=== PATIENT | male | born 1995 | race Caucasian/White ===

== ENCOUNTER 2016-06-22 17:11 | Emergency (ER) | payer OTHER ==
[~2016-06-22] VITALS: Ht 147.3 cm; Wt 33.6 kg
[~2016-06-22 17:11] MED LIST: ACTIGALL300 MG PO; ASACOL400 MG PO; AUGMENTIN 875 M1 TAB PO; CAPOTEN; CAPOTEN PO; CAPOTEN25 MG PO; CAPTOPRIL PO; FLAGYL250 MG PO; LEVAQUIN500 MG PO; MOTRIN; VASOTEC20 MG PO; VASOTEC5 MG PO; bactrim; mineral oil
[2016-06-22 17:36] VITALS: BP 113/70
--- NOTE | 2016-06-22 19:40 | NUR ---
BIB WHEELCHAIR TO ER BED 2
--- NOTE | 2016-06-22 19:45 | NUR ---
Note undone in EDM - 06/23/16 at 0457 by MINDY 21 Y/O MENTALLY CHALLENGE BIB FATHER W/C/O RLW ABD PAIN, N/V X 3 DAYS. FATHER DENIES ANY FEVER. PER FATHER PT HAS BEING CONSTIPATED SINCE GALLBLADDER REMOVED X 1 YEAR, AND HE IS CONSTANTLY IN PAIN. NO S/S OF DISTRESS NOTED AT THE MOMENT. ER AWARE.
--- NOTE | 2016-06-22 19:45 | NUR ---
21 Y/O M WHEEL CHAIR BOUND, WITH COMPLETE APHASIA, SPASTIC,EXTREMITIES X 4 CONTRACTED BIB FATHER W/C/O RLW ABD PAIN, N/V X 3 DAYS. FATHER DENIES ANY FEVER. PER FATHER PT HAS BEING CONSTIPATED SINCE GALLBLADDER REMOVED X 1 YEAR, AND HE IS CONSTANTLY IN PAIN. NO S/S OF DISTRESS NOTED AT THE MOMENT. ER MD AWARE.
[2016-06-22 19:56] VITALS: BP 113/70
--- NOTE | 2016-06-22 19:56 | NUR ---
Patient discharged BY DR HAINES with v/s stable. Written and verbal after care instructions given and explained BY ER MD TO FATHER. FATHER ABLE TO VERBALIZED UNDERSTANDING OF INSTRUCTIONS. Wheel Chair Assisted with by parent. All questions addressed prior to discharge. ID band removed. Patient advised to follow up with PMD OR RETURN TO ER IF CONDITION WORSENS. Rx of TYLENOL WITH CODEINE, MILK OF MAGNESIA, AUGMENTIN AND MOTRIN CHILDREN given. Patient educated on indication of medication including possible reaction and side effects. Opportunity to ask questions provided and answered.
[2016-09-22] MEDS ORDERED: ALDACTONE25 M1 PO (12:09)
[2016-09-22] MEDS ORDERED: MYCOSTATIN100000 U/2 TP (12:09)
[2016-09-22] MEDS ORDERED: FUROSEMIDE40 M1 PO (12:09)
[2016-09-22] MEDS ORDERED: TYLENOL650 MG RC (12:09)
== END 2016-06-22 19:56 | disposition home or self-care (01) ==
LOC: MED 17:15
DX: J06.9 Acute upper respiratory infection, unspecified (principal); K59.00 Constipation, unspecified

== ENCOUNTER 2016-09-16 18:44 | Inpatient (IN) | payer OTHER ==
[~2016-09-16] VITALS: Ht 152.4 cm; Wt 30.4 kg
[~2016-09-16 18:44] MED LIST changes: -ACTIGALL300 MG PO; -ASACOL400 MG PO; -AUGMENTIN 875 M1 TAB PO; -CAPOTEN; -CAPOTEN PO; -CAPOTEN25 MG PO; -CAPTOPRIL PO; +ENAL20TA46 PO; -FLAGYL250 MG PO; -LEVAQUIN500 MG PO; -MOTRIN; -VASOTEC20 MG PO; -VASOTEC5 MG PO; -bactrim; -mineral oil
[2016-09-16 18:51] VITALS: BP 108/58
--- NOTE | 2016-09-16 19:47 | NUR ---
PT TAKEN TO BED 8
--- NOTE | 2016-09-16 19:50 | NUR ---
21 Y/O M BIB PARENTS W/C/O ABD PAIN, BLOATING, AND DIARRHEA WITH BLOODY SPOTS X 3 DAYS. PAREENTS DENIED ANY FEVER, CHILLS OR VOMITING. ABD APPEARS DISTENDED. ER MD MADE AWARE.
--- NOTE | 2016-09-16 19:52 | NUR ---
Dr. Navarrete evaluating patient at bedside.
[2016-09-16 20:28] LABS: HEMATOCRIT 31.3 % (36-52); HEMOGLOBIN 10.1 g/dL (12.0-18.0); MEAN CORPUSCULAR HEMOGLOBIN 31 pg (27-31); MEAN CORPUSCULAR HGB CONC 32 g/dL (33-37); MEAN CORPUSCULAR VOLUME 96 fL (80-94); PLATELET COUNT (AUTO) 275 K/uL (140-450); RED BLOOD CELL COUNT(AUTO) 3.27 MIL/uL (4.20-6.10); RED CELL DISTRIBUTION WIDTH 19.2 % (11.6-13.7); WHITE BLOOD COUNT (AUTO) 18.3 K/uL (4.8-10.8)
[2016-09-16 20:47] LABS: ALBUMIN 1.7 g/dL (3.4-5.0); ANION GAP 12.4 (8-16); CALCIUM 7.6 mg/dL (8.5-10.1); CARBON DIOXIDE 25.9 mmol/L (21-32); CREATININE 0.7 mg/dL (0.6-1.3); POTASSIUM 4.3 mmol/L (3.5-5.1); TOTAL BILIRUBIN 0.2 mg/dL (0.0-1.0); TOTAL PROTEIN, SERUM 5.1 g/dL (6.4-8.2)
--- NOTE | 2016-09-16 20:56 | NUR ---
PT TAKEN TO CT
[2016-09-16 20:57] LABS: BAND % (MANUAL) 8 % (0-8); LYMPHOCYTES % (MANUAL) 6 % (20-46); NEUTROPHILS % (MANUAL) 86 (43-65)
[2016-09-16 20:58] LABS: PLATELET ESTIMATE ADEQUATE
--- NOTE | 2016-09-16 21:10 | NUR ---
PT RETURN FROM CT
[2016-09-16] MEDS ORDERED: KETOROLAC 15 MG/ML VIAL IVP ONE (22:15)
[2016-09-16] MEDS ORDERED: metroNIDAZOLE 250 MG/NS PREMIX 50 ML IV ONE (22:20)
[2016-09-16] MEDS ORDERED: ACETAMINOPHEN 325 MG TAB PO PRN (22:30)
[2016-09-16] MEDS ORDERED: HYDROcodone/APAP 5/325 MG 1 TAB TAB PO PRN (22:30)
[2016-09-16] MEDS ORDERED: LORazepam 2 MG/ML VIAL IVP PRN (22:30)
[2016-09-16] MEDS ORDERED: ONDANSETRON 4 MG/2 ML VIAL IVP PRN (22:30)
[2016-09-16] MEDS ORDERED: metroNIDAZOLE 500 MG/NS PREMIX 100 ML IV ONE (22:42)
--- NOTE | 2016-09-16 23:05 | NUR ---
Patient will be admitted to care of DR HENDRIX. Admited to TELEMETRY. Will go to [id number] Belongings list completed. Report to ISIAH FAY.
--- NOTE | 2016-09-16 23:16 | NUR ---
PT TRASFERED TO TELEMETRY FLOOR ROOM 114 VIA [employer]. ACCOMPANIED BY PARENTS, JOANN, RN AND EMT. LOG HAUL CHAIN FEEDER IN BED. NO S/S OF DISTRESS NOTED DURING TRASFER.
[2016-09-16 23:30] VITALS: BP 111/56
--- NOTE | 2016-09-16 23:40 | NUR ---
ADMITTED A 21 Y/O MALE FROM ER [facility]IA [facility], ACCOMPANIED BY FAMILY. PT ADMITTED TO MS FOR ABDOMINAL PAIN WITH DISTENTION AND DIARRHEA FOR PAST 3 DAYS PER FATHER. RESPIRATION EVEN AND UNLABORED, NO SOB, NO S/S RESPIRATORY DISTRESS. PT DENIES PAIN AT THIS TIME. PT HAS CEREBRAL PALSY, APHASIC BUT ABLE TO MAKE NEEDS KNOWN THROUGH GESTURES AND CUEING. PT FOLLOWS SIMPLE COMMANDS. IV ACCESS TO RIGHT FOREARM, GAUGE 22, INTACT AND PATENT, INFUSING FLAGYL @ 100ML/HR AT THIS TIME. IV ACCESS WRAPPED WITH KERLIX NOTED. INSTRUCTED PT NOT TO PULL THE IV OUT, PT NODDED HIS HEAD BUT NEED REINFORCEMENT. PATIENT'S PARENTS PRESENTLY IN THE UNIT. OBTAINED PATIENT'S HX. SKIN INTACT, NO PRESSURE ULCER NOTED AT THIS TIME. DISCUSSED PLAN OF CARE TO PATIENT AND FAMILY. PARENTS VERBALIZED UNDERSTANDING. PT AGREED BY NODDING HIS HEAD. ORIENTED TO CALL LIGHT, BED, PHONE, BATHROOM, VISITING HOURS, ID BRACELET. BELONGINGS CHECKED. PT'S WHEELCHAIR IN THE ROOM.FALL PRECAUTION IN PLACE. BED ALARM IN PLACE. ALL NEEDS ANTICIPATED. PT CLEAN AND DRY AT THIS TIME. WILL CONTINUE TO MONITOR.
[2016-09-16] MEDS: NACL 0.9% 1,000 ML IV SCH (23:49)
--- NOTE | 2016-09-16 23:49 | NUR ---
INITIAL DOSE OF IVF NS STARTED, RUNNING AT 100ML/HR. PT TOLERATING WELL. WILL CONTINUE TO MONITOR.
[2016-09-17] MEDS: LEVOFLOXACIN 500 MG/D5W PREMIX 100 ML IV SCH ×2 (00:34→22:34)
--- NOTE | 2016-09-17 00:34 | NUR ---
FIRST DOSE OF ATB LEVAQUIN 500MG IVPB ADMINISTERED AT 100ML/HR. NO ADVERSE REACTION NOTED AT THIS TIME. WILL CONTINUE TO MONITOR.
--- NOTE | 2016-09-17 01:30 | NUR ---
PAGED DR. HIGGINS DUE TO PATIENT'S HR 120-127 BPM. PT RESTING IN BED, AWAKE AND WATCHING TV. NO S/S OF RESPIRATORY DISTRESS AT THIS TIME. MESSAGE LEFT TO SUNNY FROM EXCHANGE. AWAITING FOR CALL BACK.
--- NOTE | 2016-09-17 01:32 | NUR ---
DR. SIMEON TENA CALLED BACK, DISCUSSED PATIENT'S SINUS TACHY WITH ORDER TO GIVE 1L NS BOLUS WIDE OPEN. NOTED AND CARRIED OUT.
[2016-09-17] MEDS ORDERED: NACL 0.9% 1,000 ML IV ONE (01:40)
--- NOTE | 2016-09-17 02:09 | NUR ---
1L NS BOLUS STARTED. PT REMAINS AWAKE, NO ACUTE CHANGES IN CONDITION AT THIS TIME. WILL CONTINUE TO MONITOR.
--- NOTE | 2016-09-17 02:55 | NUR ---
PT AWAKE STILL, WATCHING TV. HR SHOWS 115-117 BPM. NO S/S OF RESPIRATORY DISTRESS. WILL CONTINUE TO MONITOR.
[2016-09-17 04:00] VITALS: BP 95/45
[2016-09-17] MEDS: metroNIDAZOLE 500 MG/NS PREMIX 100 ML IV SCH ×3 (04:57→21:20)
[2016-09-17] MEDS ORDERED: metroNIDAZOLE 250 MG/NS PREMIX 50 ML IV SCH (05:00)
--- NOTE | 2016-09-17 05:30 | NUR ---
PT MOANING LOUDLY AT THIS TIME, HOLDING HIS BILATERAL HINDUISM. ASKED PT IF HE HAS HEADACHE, PT NODDED HIS HEAD. PT FEELS HOT TO TOUCH. TEMP 100. INFORMED DR. HENDRIX(PARTS LISTER) ABOUT PT'S CHANGED IN CONDITION. ORDERED TO GIVE TYLENOL 650MG SUPP AND SAM PO TYLENOL. ORDER NOTED AND CARRIED OUT. INITIATED COOLING MEASURES.
[2016-09-17] MEDS: ACETAMINOPHEN 650 MG SUPP RC PRN (06:00)
--- NOTE | 2016-09-17 06:00 | NUR ---
TYLENOL 650MG SUPP GIVEN PER RECTUM. CONTINUE ON COOLING MEASURES. PT AWAKE, ALERT AND VERBALLY RESPONSIVE. CALLING OUT "MAMA! MOMMY". REASSURANCE PROVIDED. WILL CONTINUE TO MONITOR AND REASSESS FOR EFFECTIVENESS.
--- NOTE | 2016-09-17 06:46 | NUR ---
PATIENT HAS BEEN SCREENED AND CATEGORIZED HIGH NUTRITION RISK. PATIENT WILL BE SEEN WITHIN 1-2 DAYS OF ADMISSION. 09/15/16-09/17/16 LILA GIL MS, RDN
[2016-09-17 07:12] LABS: ALBUMIN 1.4 g/dL (3.4-5.0); ANION GAP 11.5 (8-16); CALCIUM 6.9 mg/dL (8.5-10.1); CARBON DIOXIDE 23.6 mmol/L (21-32); CREATININE 0.6 mg/dL (0.6-1.3); POTASSIUM 4.1 mmol/L (3.5-5.1); TOTAL BILIRUBIN 0.4 mg/dL (0.0-1.0); TOTAL PROTEIN, SERUM 4.3 g/dL (6.4-8.2)
--- NOTE | 2016-09-17 07:22 | NUR ---
PT AWAKE, CALM, TEMP 97.2 AT THIS TIME. NO ACUTE CHANGES OBSERVED. NO S/S OF RESPIRATORY DISTRESS, NO C/O PAIN AT THIS TIME. ENDORSED TO NEXT SHIFT FOR CONTINUITY OF CARE.
--- NOTE | 2016-09-17 07:27 | NUR ---
RECEIVED PT IN BED. ASLEEP. AROUSABLE TO VOICE. ALERT ORIENTED X2. NO SOB NOTED ON ROOM AIR. NO SIGNS AND SYMPTOMS OF ACUTE PAIN OR DISCOMFORT NOTED AT THIS TIME. ABDOMINAL DISTENSION NOTED. POSITIVE BOWEL SOUNDS NOTED ON FOUR QUADRANTS. OR BEDBOUND. SKIN INTACT. SAFETY PRECAUTION IN PLACE. CALL LIGHT WITHIN REACH.
[2016-09-17 08:00] VITALS: BP 92/53
--- NOTE | 2016-09-17 09:00 | NUR ---
PT HAD BM, SOFT,FORMED, BROWN IN COLOR. NON LIQUID BM. NOT A CRITERIA FOR C-DIFF STOOL COLLECTION. WILL CONTINUE TO MONITOR BM OF PT.
[2016-09-17] MEDS: ENOXAPARIN 40 MG/0.4 ML SYR SUBQ SCH (09:04)
--- NOTE | 2016-09-17 09:30 | NUR ---
MORNING CARE GIVEN TO PT PER DIRECTOR COMMERCIAL SALES ASSIST. PT NOT COOPERATIVE. GOOD SKIN CARE RENDERED. REPOSITIONED TO PT COMFORT. NOS SOB NOTED. NO SIGNS AND SYMPTOMS OF ACUTE PAIN OR DISCOMFORT NOTED AT THIS TIME.
--- NOTE | 2016-09-17 09:54 | NUR ---
09/17/16 RD INITIAL ASSESSMENT COMPLETED PLEASE REFER TO NUTRITION ASSESSMENT UNDER CARE ACTIVITY FOR ESTIMATED NUTRITIONAL NEEDS. RD RECOMMENDATIONS: 1. CONTINUE ON NPO MEDICALLY APPROPRIATE. 2. CONSULT RDN FOR NUTRITION RECOMMENDATIONS PRN. 3. RD WILL F/U 2-3 DAYS; HIGH RISK. LILA GIL, , RDN
[2016-09-17] MEDS: NACL 0.9% 1,000 ML IV SCH ×2 (11:41→18:30)
[2016-09-17 12:00] VITALS: BP 90/43
--- NOTE | 2016-09-17 12:54 | NUR ---
PARENTS OF PT CAME TO VISIT PT. FATHER TERESITA ASKED FOR SOME ICED WATER FOR THEM. REMINDED PARENTS THAT PT CAN'T EAT OR DRINK ANYTHING YET PER MD ORDER. PARENTS VERBALIZED UNDERSTANDING. SERVED PARENTS WITH ICE WATER.
[2016-09-17] MEDS ORDERED: ALBUMIN HUMAN 25% 100 ML IV SCH (15:00)
[2016-09-17 16:00] VITALS: BP 95/55
--- NOTE | 2016-09-17 18:26 | NUR ---
CHRISTOPHER FROM ULTRASOUND DEPARTMENT CAME TO SEE PT AND PERFORMED ULTRASOUND OF GALL BLADDER.
--- NOTE | 2016-09-17 19:18 | NUR ---
PT JUST HAD A SOFT, DARK BROWN IN COLOR BM, NON WATERY. CHANGED PT. KEPT CLEAN AND DRY. GOOD SKIN CARE RENDERED. FAMILY AT BEDSIDE.
--- NOTE | 2016-09-17 19:50 | NUR ---
RECEIVED REPORT FROM MORNING SHIFT AT BEDSIDE, PT IS AAOX2, APHASIC, ABLE TO FOLLOW COMMANDS AND MAKE NEEDS KNOWN. VSS, FLACC 0, NO S/S OF SOB/DISTRESS, CLEAR LUNG SOUND, ON RA. DENIES CHEST PAIN, SR ON TELE MONITOR. DISTENDED ABDOMEN WITH ACTIVE BOWEL SOUNDS, CURRENTLY ON NPO, AFEBRILE, SKIN IS INTACT, WARM AND DRY TO TOUCH. IV SITE TO RIGHT FOREARM 22GA RUNNING NS. BLE WEAKNESS NOTED, BEDBOUND, PLACED PT WITH COMFORT POSITION, SAFETY MEASURES IN PLACE, CALL LIGHT WITHIN REACH, WILL CONTINUE TO MONITOR.
--- NOTE | 2016-09-17 19:52 | NUR ---
PT KEPT CLEAN, DRY AND COMFORTABLE, NEEDS ATTENDED. ENDORSED TO DEPUTY DISTRICT CUSTOMS DIRECTOR ON STABLE CONDITION FOR CONTINUITY OF CARE. NO SOB. DENIES ANY PAIN OR DISCOMFORT AT THIS TIME.
[2016-09-17 20:00] VITALS: BP 101/49
--- NOTE | 2016-09-17 21:00 | NUR ---
SCHEDULED MEDICATION GIVEN, PT TOLERATED WELL. FAMILY MEMBERS AT BEDSIDE AT THIS TIME.
[2016-09-18] VITALS: BP 94/33
--- NOTE | 2016-09-18 | NUR ---
PT IS AWAKE, STATED HUNGRY, BUT PT IS ON NPO, EXPLAINED THE CURRENT STATUS TO PT, PT KNOCKED HEAD SHOWING UNDERSTANDING.
[2016-09-18] MEDS: NACL 0.9% 1,000 ML IV SCH (02:41)
--- NOTE | 2016-09-18 03:00 | NUR ---
PT HAD A MUCOUS BLACK COLORED STOOL, COLLECTED STOOL ORDERED AND SENT TO LAB.
[2016-09-18 04:00] VITALS: BP 102/47
--- NOTE | 2016-09-18 04:00 | NUR ---
PT IS AWAKE, NO CHANGE OF CONDITION AT THIS TIME, VSS.
[2016-09-18] MEDS: metroNIDAZOLE 500 MG/NS PREMIX 100 ML IV SCH ×3 (05:22→20:25)
[2016-09-18 06:31] LABS: BASOPHILS # (AUTO) 0.1 K/uL (0.00-0.22); BASOPHILS % (AUTO) 1.3 % (0.0-2.0); EOSINOPHILS # (AUTO) 0.1 K/uL (0-0.4); EOSINOPHILS % (AUTO) 1.6 % (0.0-4.0); HEMATOCRIT 23.9 % (36-52); HEMOGLOBIN 7.7 g/dL (12.0-18.0); LYMPHOCYTES # (AUTO) 0.5 K/uL (2.0-11.5); LYMPHOCYTES % (AUTO) 8.1 % (20.5-51.1); MEAN CORPUSCULAR HEMOGLOBIN 31 pg (27-31); MEAN CORPUSCULAR HGB CONC 32 g/dL (33-37); MEAN CORPUSCULAR VOLUME 97 fL (80-94); MONOCYTES # (AUTO) 0.4 K/uL (0.8-1.0); MONOCYTES % (AUTO) 6.3 % (1.7-9.3); NEUTROPHILS % (AUTO) 82.7 % (42.2-75.2); PLATELET COUNT (AUTO) 159 K/uL (140-450); RED BLOOD CELL COUNT(AUTO) 2.47 MIL/uL (4.20-6.10); RED CELL DISTRIBUTION WIDTH 19.5 % (11.6-13.7)
[2016-09-18 06:46] LABS: ALBUMIN 1.9 g/dL (3.4-5.0); CALCIUM 7.3 mg/dL (8.5-10.1); CARBON DIOXIDE 20.4 mmol/L (21-32); CREATININE 0.5 mg/dL (0.6-1.3); POTASSIUM 3.4 mmol/L (3.5-5.1); TOTAL BILIRUBIN 0.4 mg/dL (0.0-1.0); TOTAL PROTEIN, SERUM 4.4 g/dL (6.4-8.2)
[2016-09-18 06:55] LABS: WHITE BLOOD COUNT (AUTO) 6.1 K/uL (4.8-10.8)
--- NOTE | 2016-09-18 07:27 | NUR ---
RECEIVED PT IN BED. ASLEEP. AROUSABLE TO VOICE. ALERT ORIENTEDX2 NO SOB NOTED ON ROOM AIR. NO SIGNS AND SYMPTOMS OF ACUTE PAIN OR DISCOMFORT NOTED AT THIS TIME. POSITIVE BOWEL SOUNDS NOTED ON FOUR QUADRANTS. ABDOMINAL DISTENSION NOTED. PT BEDBOUND. SAFETY PRECAUTION IN PLACE. CALL LIGHT WITHIN REACH.
--- NOTE | 2016-09-18 07:30 | NUR ---
REPORT GIVEN TO MORNING SHIFT NURSE AT BEDSIDE FOR CONTINUE OF CARE, PT IS IN STABLE CONDITION AT THIS TIME.
[2016-09-18 08:00] VITALS: BP 102/38
[2016-09-18] MEDS: ENOXAPARIN 40 MG/0.4 ML SYR SUBQ SCH (09:06)
--- NOTE | 2016-09-18 09:28 | NUR ---
BEDSIDE CARE GIVEN TO PT. GOOD SKIN CARE DONE. PT HAD BM OF DARK GREEN IN COLOR. SOFT IN CONSISTENCY, NON LIQUID.
--- NOTE | 2016-09-18 09:29 | NUR ---
PT KEPT CLEAN, DRY AND COMFORTABLE. PT WATCHING TV AT THIS TIME. POSITIONED TO CLIENT COMFORT.
--- NOTE | 2016-09-18 09:40 | NUR ---
CALLED DR. HIGGINS REGARDING POTASSIUM OF PT 3.4 TODAY THAT WAS 3.7 YESTERDAY, ALBUMIN OF 1.9 THAT WAS 1.4 YESTERDAY WENT UP BUT STILL LOW AFTER THE HUMAN ALBUMIN 25% THAT WAS ORDERED YESTERDAY, AND GLUCOSE OF 70, PT STILL ON NPO. ALSO REPORTED TO DR. HIGGINS REGARDING STOOL OF PT BEING DARK GREEN TO BLACK IN COLOR. DR HIGGINS GAVE A TELEPHONE ORDER AND CARRIED OUT.
--- NOTE | 2016-09-18 09:50 | NUR ---
PT HAD WATERY BM, DARK GREEN TO BLACK IN COLOR WITH SOME MUCOID LIKE CONSISTENCY.
--- NOTE | 2016-09-18 10:00 | NUR ---
STOOL OCCULT BLOOD OBTAINED AND SENT TO LAB.
[2016-09-18] MEDS: DEXT 5% /NACL 0.9% 1,000 ML IV SCH ×2 (10:26→22:04)
[2016-09-18] MEDS ORDERED: POTASSIUM CHLORIDE 40 MEQ, LIDOCAINE 1% 25 MG in NACL 0.9% 250 ML IV SCH (10:30)
--- NOTE | 2016-09-18 11:23 | NUR ---
RECEIVED STOOL OCCULT BLOOD TEST RESULT POSITIVE. CALLED DR. HIGGINS AND MADE AWARE. WITH ORDERS FOR GI CONSULT UNDER DR. Chelsea DUNN. TORB OBTAINED.
--- NOTE | 2016-09-18 11:32 | NUR ---
CALLED DR. Chelsea DUNN FOR GI CONSULT, LEFT MESSAGE AT . AWAITING CALL BACK.
[2016-09-18 12:00] VITALS: BP 100/38
--- NOTE | 2016-09-18 13:22 | NUR ---
CHANGED PT BED PADS. PT HAD BM, AND URINE OUTPUT. GOOD SKIN CARE RENDERED. ATTACHED RECTAL BAG FOR C-DIFF STOOL COLLECTION. FAMILY AT BEDSIDE.
--- NOTE | 2016-09-18 14:09 | NUR ---
Social Service Note: I met with patient's parents at bedside. They stated they would like to take patient home upon discharge, they assist patient with adls. They do not have any difficulty filling patient's prescriptions at pharmacy. They stated they do not have any concerns at this time.
[2016-09-18] MEDS ORDERED: ALBUMIN HUMAN 25% 100 ML IV SCH (14:30)
--- NOTE | 2016-09-18 15:14 | NUR ---
DR. HIGGINS CAME TO SEE PT. DOCTOR GISELA MADE AWARE THAT A CALL WAS MADE, AND LEFT A MESSAGE, FOR DR. Chelsea DUNN REGARDING GI CONSULT, AND HASN'T CALLED BACK YET.
[2016-09-18 16:00] VITALS: BP 104/5
--- NOTE | 2016-09-18 18:00 | NUR ---
STOOL SPECIMEN FOR C-DIFF #1 COLLECTED. SENT TO LAB. STOOL WATERY IN CONSISTENCY WITH SOME SOFT TO MUCOID IN FORM. DARK GREEN TO BLACK IN COLOR.
--- NOTE | 2016-09-18 19:35 | NUR ---
PT KEPT CLEAN, DRY AND COMFORTABLE, NEEDS ATTENDED. PT IN BED, WITH FAMILY AT BEDSIDE. NO SOB NOTED. NO SIGNS AND SYMPTOMS OF ACUTE PAIN OR DISCOMFORT NOTED AT THIS TIME. ENDORSED TO NEXT SHIFT ON STABLE CONDITION FOR CONTINUITY OF CARE.
--- NOTE | 2016-09-18 19:35 | NUR ---
RECEIVED REPORT FROM THAI JOYCE AT BEDSIDE. PT IS ALERT, AWAKE ORIENTED X1. PT IS A MENTALLY CHALLENGED. INITIAL ASSESSMENT DONE. NO S/S OF RESPIRATORY DISTRESS OR SOB NOTED. NO C/O PAIN OR ANY DISCOMFORT AT THIS TIME. PLAN OF CARE REVIEWED TO PT AND FAMILY AT BEDSIDE AND VERBALIZED UNDERSTANDING. CALL LIGHT WITHIN REACH. WILL CONTINUE TO MONITOR.
[2016-09-18 20:00] VITALS: BP 106/54
[2016-09-18] MEDS: PANTOPRAZOLE 40 MG INJ VIAL IVP SCH (20:25)
[2016-09-18] MEDS: LEVOFLOXACIN 500 MG/D5W PREMIX 100 ML IV SCH (22:05)
[2016-09-19] VITALS: BP 110/53
--- NOTE | 2016-09-19 00:30 | NUR ---
PT IS SLEEPING RIGHT NOW BUT EASILY AROUSABLE. NO S/S OF ANY DISCOMFORT AT THIS TIME. ALL NEEDS ARE ATTENDED. CALL LIGHT WITHIN REACH. WILL CONTINUE TO MONITOR.
[2016-09-19 04:00] VITALS: BP 108/51
[2016-09-19] MEDS: metroNIDAZOLE 500 MG/NS PREMIX 100 ML IV SCH ×3 (04:38→21:09)
--- NOTE | 2016-09-19 05:30 | NUR ---
AM CARE RENDERED. BED LINEN CHANGED. REPOSITIONED PATIENT. KEPT CLEAN AND DRY. CALL LIGHT WITHIN REACH. WILL CONTINUE TO MONITOR.
[2016-09-19 05:50] LABS: BASOPHILS # (AUTO) 0.1 K/uL (0.00-0.22); BASOPHILS % (AUTO) 1.5 % (0.0-2.0); EOSINOPHILS # (AUTO) 0.1 K/uL (0-0.4); EOSINOPHILS % (AUTO) 1.6 % (0.0-4.0); HEMATOCRIT 24.2 % (36-52); HEMOGLOBIN 7.8 g/dL (12.0-18.0); LYMPHOCYTES # (AUTO) 0.8 K/uL (2.0-11.5); LYMPHOCYTES % (AUTO) 16.9 % (20.5-51.1); MEAN CORPUSCULAR HEMOGLOBIN 32 pg (27-31); MEAN CORPUSCULAR HGB CONC 32 g/dL (33-37); MEAN CORPUSCULAR VOLUME 99 fL (80-94); MONOCYTES # (AUTO) 0.5 K/uL (0.8-1.0); MONOCYTES % (AUTO) 9.6 % (1.7-9.3); NEUTROPHILS # (AUTO) 3.2 K/uL (1.8-7.7); NEUTROPHILS % (AUTO) 70.4 % (42.2-75.2); PLATELET COUNT (AUTO) 153 K/uL (140-450); RED BLOOD CELL COUNT(AUTO) 2.46 MIL/uL (4.20-6.10); RED CELL DISTRIBUTION WIDTH 18.9 % (11.6-13.7); WHITE BLOOD COUNT (AUTO) 4.7 K/uL (4.8-10.8)
[2016-09-19 07:02] LABS: ALBUMIN 2.6 g/dL (3.4-5.0); CALCIUM 7.7 mg/dL (8.5-10.1); CARBON DIOXIDE 20.5 mmol/L (21-32); CREATININE 0.6 mg/dL (0.6-1.3); POTASSIUM 3.5 mmol/L (3.5-5.1); TOTAL BILIRUBIN 0.4 mg/dL (0.0-1.0)
--- NOTE | 2016-09-19 07:22 | NUR ---
PT HAS NO S/S OF ANY DISCOMFORT. PLAN OF CARE ENDORSE TO ADRIANNA RN AT BEDSIDE FOR CONTINUITY OF CARE.
--- NOTE | 2016-09-19 07:25 | NUR ---
REPORT RECIEVED FROM JUDICIAL LAW CLERK, PT AWAKE ALERT, RESP EVEN UNLABORED ON RA IN NAD, IVF INFUSING WELL AT 80ML/HR, SITE CLEAR, MITTENS REMOVED, PLAN OF CARE DISCUSSED, PT APPEARS IN NO PAIN OR DISCOMFORT, NO IMMEDIATE NEEDS IDENTIFIED, BED LOCKED IN LOW POSITION, SIDE RAILS UP, CALL PITTMAN WITHIN REACH, WILL CONTINUE TO MONITOR.
[2016-09-19 08:00] VITALS: BP 100/48
[2016-09-19] MEDS: PANTOPRAZOLE 40 MG INJ VIAL IVP SCH ×2 (08:42→21:09)
[2016-09-19] MEDS: ENOXAPARIN 40 MG/0.4 ML SYR SUBQ SCH (08:46)
[2016-09-19] MEDS: DEXT 5% /NACL 0.9% 1,000 ML IV SCH ×2 (10:45→23:15)
[2016-09-19 12:00] VITALS: BP 97/52
--- NOTE | 2016-09-19 12:30 | NUR ---
DR HIGGINS AND PARENTS AT BEDSIDE, DISCUSSED PLAN OF CARE WITH AFSANEH DUNBAR, ALL QUESTIONS ASKED BY PARENTS AND ANSWERED BY DR HIGGINS. PT SITTING UP BED IN NAD, RESP EVEN UNLABORED, SKIN WARM DRY COLOR SLIGHTLY PALE, PT REMAINS NPO PER DR HIGGINS, PARENTS AWARE, WILL CONTINUE TO MONITOR.
--- NOTE | 2016-09-19 14:30 | NUR ---
CONSENT FOR US GUIDED PARASENTHEISIS SIGNED BY FATHER.
--- NOTE | 2016-09-19 15:18 | NUR ---
INITIAL REVIEW FAXED TO [facility] AT [phone] PHONE [phone]
[2016-09-19 16:07] VITALS: BP 100/47
--- NOTE | 2016-09-19 16:42 | NUR ---
PT SLEEPING WITH EYES CLOSED, RESP EVEN UNLABORED, SKIN WARM DRY COLOR REMAINS SLIGHTLY PALE, IVF INFUSING WELL, SITE CLEAR, PT REMAINS ON MIDDLE STITCHER, BED LOCKED IN LOW POSITION, SIDE RAILS UP, CALL PITTMAN WITHIN REACH, WILL CONTINUE TO MONITOR.
--- NOTE | 2016-09-19 18:44 | NUR ---
MOTHER AT BEDSIDE, PLAN OF CARE REVIEWED, PER US TECH, US GUIDED PARACENTHESIS TO BE DONE TOMORROW MORNING WITH RADIOLOGIST, MOTHER VERBALIZED UNDERSTANDING, PT SLEEPING QUIETLY IN NAD, RESP EVEN UNLABORED, REMAINS ON DIRECTOR OF STRATEGIC MARKETING, IVF INFUSING WELL, SITE CLEAR, WILL CONTINUE TO MONITOR.
--- NOTE | 2016-09-19 19:43 | NUR ---
REPORT GIVEN TO BALLISTIC TECHNICIAN, PT IN STABLE CONDITION.
--- NOTE | 2016-09-19 19:45 | NUR ---
RECEIVED REPORTS FROM DAY RN. PATIENT RESTING IN BED, FAMILY MEMBERS AT BEDSIDE. PATIENT AWAKE ALERT RESPONSIVE. RESPIRATION EVEN AND UNLABORED, NO ACUTE DISTRESS OR DISCOMFORT NOTED, IV PATENT AND INTACT, FLUIDS INFUSING WELL. PLAN OF CARE DISCUSSED. CALL LIGHT WITHIN REACH, SAFETY MEASURE ENSURED, WILL CONTINUE TO MONITOR
[2016-09-19 20:00] VITALS: BP 92/51
--- NOTE | 2016-09-19 20:50 | NUR ---
HAD A MOD GREENISH PASTY STOOL . CLEANED AND KEPT DRY. REPOSITIONED FOR COMFORT.
--- NOTE | 2016-09-19 21:10 | NUR ---
PATIENT RESTING IN BED AND WATCHING TV, FAMILY MEMBER AT BEDSIDE. NO S/S OF ACUTE DISTRESS OR DISCOMFORT NOTED, PM MEDS GIVEN, PATIENT TOLERATED WELL. CALL LIGHT WITHIN REACH, SAFETY MEASURE ENSURED, WILL CONTINUE TO MONITOR.
[2016-09-19] MEDS: LEVOFLOXACIN 500 MG/D5W PREMIX 100 ML IV SCH (22:49)
--- NOTE | 2016-09-19 22:50 | NUR ---
PATIENT RESTING IN BED, LEVAQUIN STARTED, NO S/S OF ACUTE DISTRESS OR DISCOMFORT NOTED, RESPIRATION EVEN AND UNLABORED, CALL LIGHT WITHIN REACH, SAFETY MEASURE ENSURED, WILL CONTINUE TO MONITOR.
[2016-09-20] VITALS (9 sets, daily range): BP systolic 90–106; BP diastolic 43–57
--- NOTE | 2016-09-20 | NUR ---
PATIENT RESTING IN BED, NO S/S OF ACUTE DISTRESS OR DISCOMFORT NOTED, RESPIRATION EVEN AND UNLABORED, CALL LIGHT WITHIN REACH, SAFETY MEASURE ENSURED, WILL CONTINUE TO MONITOR.
--- NOTE | 2016-09-20 02:00 | NUR ---
SLEEPING WELL A THIS TIME. NO S/S OF ANY DISCOMFORT NOR DISTRESS NOTED.
[2016-09-20] MEDS: DEXT 5% /NACL 0.9% 1,000 ML IV SCH ×2 (04:11→21:35)
[2016-09-20] MEDS: metroNIDAZOLE 500 MG/NS PREMIX 100 ML IV SCH ×3 (04:11→21:34)
--- NOTE | 2016-09-20 04:15 | NUR ---
VANE STATED, PATIENT RESTING IN BED, NO S/S OF ACUTE DISTRESS NOTED, WINE SALES REPRESENTATIVE IS IN THE ROOM CLEANING THE PATIENT,CALL LIGHT WITHIN REACH, SAFETY MEASURE ENSURED, WILL CONTINUE TO MONITOR.
[2016-09-20 06:50] LABS: BASOPHILS # (AUTO) 0.1 K/uL (0.00-0.22); BASOPHILS % (AUTO) 3.4 % (0.0-2.0); EOSINOPHILS % (AUTO) 1.3 % (0.0-4.0); HEMATOCRIT 24.4 % (36-52); LYMPHOCYTES # (AUTO) 0.5 K/uL (2.0-11.5); LYMPHOCYTES % (AUTO) 16.1 % (20.5-51.1); MEAN CORPUSCULAR HEMOGLOBIN 32 pg (27-31); MEAN CORPUSCULAR HGB CONC 33 g/dL (33-37); MEAN CORPUSCULAR VOLUME 97 fL (80-94); MONOCYTES # (AUTO) 0.3 K/uL (0.8-1.0); NEUTROPHILS # (AUTO) 2.2 K/uL (1.8-7.7); NEUTROPHILS % (AUTO) 69.2 % (42.2-75.2); PLATELET COUNT (AUTO) 150 K/uL (140-450); RED BLOOD CELL COUNT(AUTO) 2.52 MIL/uL (4.20-6.10); RED CELL DISTRIBUTION WIDTH 18.7 % (11.6-13.7); WHITE BLOOD COUNT (AUTO) 3.1 K/uL (4.8-10.8)
--- NOTE | 2016-09-20 07:20 | NUR ---
ENDORSED PLAN OF CARE TO DAY RN. PATIENT IS STABLE.
--- NOTE | 2016-09-20 07:30 | NUR ---
REPORT RECEIVED FROM ASSOCIATION EXECUTIVE, PT RESTING WITH EYES CLOSED, AROUSES TO VOICE, RESP EVEN UNLABORED ON ROOM AIR IN NAD, SKIN WARM DRY COLOR SLIGHTLY PALE, IVF INFUSING WELL, SITE CLEAR, PT APPEARS IN NO PAIN OR DISCOMFORT, ABD ROUND DISTENDED, UNCHANGED PER REPORT, DIAPER DRY AT THIS TIME, PLAN OF CARE REVIEWED, PT REMAINS ON SMALL WIND ENERGY INSTALLER, CALL PITTMAN WITHIN REACH, SIDE RAILS UP, BED LOCKED IN LOW POSITION, WILL CONTINUE TO MONITOR.
[2016-09-20 07:52] LABS: ALBUMIN 2.3 g/dL (3.4-5.0); ANION GAP 13.8 (8-16); CALCIUM 7.5 mg/dL (8.5-10.1); CARBON DIOXIDE 19.2 mmol/L (21-32); CREATININE 0.5 mg/dL (0.6-1.3); TOTAL BILIRUBIN 0.2 mg/dL (0.0-1.0); TOTAL PROTEIN, SERUM 4.7 g/dL (6.4-8.2)
[2016-09-20 07:56] LABS: INR 1.3 (0.8-1.2); PARTIAL THROMBOPLASTIN TIME 29.2 secs (22-35.6)
[2016-09-20] MEDS: ENOXAPARIN 40 MG/0.4 ML SYR SUBQ SCH (08:50)
[2016-09-20] MEDS: PANTOPRAZOLE 40 MG INJ VIAL IVP SCH ×2 (08:51→21:34)
--- NOTE | 2016-09-20 08:52 | NUR ---
CM NOTE CONCURRENT REVIEW FAXED TO [facility] AT [phone] PHONE [phone]
--- NOTE | 2016-09-20 09:08 | NUR ---
PROTONIX GIVEN SCHEDULED, IV SITE CLEAR, LOVENOX HELD FOR PROCEDURE TODAY, SMALL BM, DIAPER CHANGED, PERICARE DONE, POSITION CHANGED, PT AWAKE, PLAYFUL WITH BALLOONS, CALL PITTMAN WITHIN REACH, SIDE RAILS UP, BED LOCKED IN LOW POSITION, WILL CONTINUE TO MONTIOR.
--- NOTE | 2016-09-20 10:56 | NUR ---
DR HIGGINS PAGED AND INFORMED OF POTASSIUM LEVEL 3.0, K RIDER ORDER RECEIVED, ALSO OK TO START PO AFTER PARACENTHESIS.
[2016-09-20] MEDS ORDERED: KCL 20 MEQ/WATER INJ PREMIX 200 ML IV SCH (11:30)
[2016-09-20] MEDS: MORPHINE SULFATE 2 MG/ML SYR IVP PRN (14:18)
--- NOTE | 2016-09-20 14:20 | NUR ---
RADIOLOGIST AT BEDSIDE, PREMEDICATED WITH MORPHINE AT THIS TIME PER DR HIGGINS,
[2016-09-20] MEDS: LORazepam 2 MG/ML VIAL IVP PRN (14:33)
--- NOTE | 2016-09-20 14:43 | NUR ---
PT RESISTS AND MOVES TOO MUCH FOR PROCEDURE, UNABLE TO PROCEED WITH PARACENTHESIS, MUST BE SCHEDULED WITH ANESTHESIA PER DR TAM, WILL NOTIFY DR HIGGINS. BP 102/49 HR97, 97% ROOM AIR, PT REAMINS ON CARDIAC MONTIOR,.
--- NOTE | 2016-09-20 15:30 | NUR ---
DR HIGGINS NOTIFIED OF FAILED ATTEMPT OF PARACENTHESIS BY DR TAM, DR HIGGINS WANTS PROCEDURE SCHEDULED UNDER GENERAL ANESTHESIA, CHARGE NURSE RASHAWN NOTIFIED.
--- NOTE | 2016-09-20 19:00 | NUR ---
PT RESTING QUIETLY WITH EYES CLOSED, RESP EVEN UNLABORED, SKIN WARM DRY COLOR SLIGHTLY PALE, IVF INFUSING WELL, SITE CLEAR, FAMILY AT BEDSIDE, CHARGE NURSE AT BEDSIDE TO DISCUSS PLAN OF CARE, PT REMAINS ON SYRUP MAKER COOK, ALL SAFETY MEASURES IN PLACE, WILL CONTINUE TO MONITOR.
--- NOTE | 2016-09-20 19:20 | NUR ---
DR DUNN AT BEDSIDE SPEAKING WITH FAMILY, REPORT GIVEN TO LOAN SUPERVISOR NURSE, PT IN STABLE CONDITION.
--- NOTE | 2016-09-20 19:25 | NUR ---
RECEIVED REPORT FROM DAY RN. PATIENT SLEEPING IN BED, FAMILY MEMBERS AT BEDSIDE, NO S/S OF ACUTE DISTRESS NOTED, RESPIRATION EVEN AND UNLABORED, IV PATENT AND INTACT, FLUIDS INFUSING WELL, CALL LIGHT WITHIN REACH, SAFETY MEASURE ENSURED, WILL CONTINUE TO MONITOR
[2016-09-20] MEDS: LEVOFLOXACIN 500 MG/D5W PREMIX 100 ML IV SCH (22:55)
--- NOTE | 2016-09-20 23:55 | NUR ---
PATIENT ASLEEP IN BED, EASY TO AROUSE, VITAL SIGNS TAKEN, WITHIN NORMAL RANGE, SAFETY MEASURE ENSURED, CALL LIGHT WITHIN REACH, WILL CONTINUE TO MONITOR.
[2016-09-21] VITALS: BP 90/51
[2016-09-21] MEDS: DEXT 5% /NACL 0.9% 1,000 ML IV SCH ×2 (00:15→12:45)
--- NOTE | 2016-09-21 01:30 | NUR ---
IV ACCESS INFILTRATED ON THE RT FA. DISCONTINUED. STARTED A NEW IV ON THE LT FA#[phone]. CLEAR AND PATENT.
[2016-09-21 04:00] VITALS: BP 99/43
--- NOTE | 2016-09-21 04:00 | NUR ---
STILL KEPT NPO . WITH IVF INFUSING WELL.
[2016-09-21] MEDS: metroNIDAZOLE 500 MG/NS PREMIX 100 ML IV SCH ×2 (05:31→12:33)
--- NOTE | 2016-09-21 05:36 | NUR ---
PATIENT SLEEPING IN BED, AM FLAGYL STARTED, PATIENT TOLERATED WELL, NO S/S OF ACUTE DISTRESS NOTED, RESPIRATION EVEN AND UNLABORED, SAFETY MEASURE ENSURED, CALL LIGHT WITHIN REACH WILL CONTINUE TO MONITOR
[2016-09-21 06:23] LABS: BASOPHILS # (AUTO) 0.1 K/uL (0.00-0.22); BASOPHILS % (AUTO) 3.6 % (0.0-2.0); EOSINOPHILS % (AUTO) 1.3 % (0.0-4.0); HEMATOCRIT 26.4 % (36-52); HEMOGLOBIN 8.6 g/dL (12.0-18.0); LYMPHOCYTES # (AUTO) 0.7 K/uL (2.0-11.5); LYMPHOCYTES % (AUTO) 20.8 % (20.5-51.1); MEAN CORPUSCULAR HEMOGLOBIN 32 pg (27-31); MEAN CORPUSCULAR HGB CONC 33 g/dL (33-37); MEAN CORPUSCULAR VOLUME 98 fL (80-94); MONOCYTES # (AUTO) 0.3 K/uL (0.8-1.0); MONOCYTES % (AUTO) 9.5 % (1.7-9.3); NEUTROPHILS # (AUTO) 2.5 K/uL (1.8-7.7); NEUTROPHILS % (AUTO) 64.8 % (42.2-75.2); PLATELET COUNT (AUTO) 154 K/uL (140-450); RED BLOOD CELL COUNT(AUTO) 2.69 MIL/uL (4.20-6.10); RED CELL DISTRIBUTION WIDTH 19.2 % (11.6-13.7); WHITE BLOOD COUNT (AUTO) 3.6 K/uL (4.8-10.8)
[2016-09-21 07:05] LABS: ALBUMIN 2.4 g/dL (3.4-5.0); CALCIUM 7.7 mg/dL (8.5-10.1); CREATININE 0.6 mg/dL (0.6-1.3); TOTAL BILIRUBIN 0.3 mg/dL (0.0-1.0); TOTAL PROTEIN, SERUM 5.1 g/dL (6.4-8.2)
--- NOTE | 2016-09-21 07:40 | NUR ---
ENDORSED PLAN OF CARE TO DAY RN, PATIENT IN STABLE CONDITION
--- NOTE | 2016-09-21 07:41 | NUR ---
RECEIVED PATIENT FROM PM NURSE, PATIENT LYING IN BED, AWAKE AND RESTING COMFORTABLY.
[2016-09-21 08:00] VITALS: BP 93/52
--- NOTE | 2016-09-21 08:35 | NUR ---
Luke from surgery came and talked to patient mother, notified him as well that patient BP this [id number].
[2016-09-21] MEDS: FUROSEMIDE 40 MG TAB PO SCH (09:00)
[2016-09-21] MEDS: SPIRONOLACTONE 25 MG TAB PO SCH (09:00)
[2016-09-21] MEDS: ENOXAPARIN 40 MG/0.4 ML SYR SUBQ SCH (09:00)
--- NOTE | 2016-09-21 09:30 | NUR ---
CM NOTE CONCURRENT REVIEW FAXED TO [facility] AT [phone] PHONE [phone]
[2016-09-21] MEDS: PANTOPRAZOLE 40 MG INJ VIAL IVP SCH ×2 (09:39→21:10)
[2016-09-21 12:34] VITALS: BP 85/32
--- NOTE | 2016-09-21 14:08 | NUR ---
09/21/16 RD FOLLOW-UP ASSESSMENT COMPLETED PLEASE REFER TO NUTRITION ASSESSMENT UNDER CARE ACTIVITY FOR ESTIMATED NUTRITIONAL NEEDS. 1. WHEN MEDICALLY FEASIBLE, INITIATE PO DIET - REGULAR, MECHANICAL SOFT DIET 2. RD TO FOLLOW-UP 2-3 DAYS; HIGH RISK RAF LONG, ALVAREZ
--- NOTE | 2016-09-21 14:10 | NUR ---
I spoke with Marilee from surgery and said need GI doctor for paracentesis
--- NOTE | 2016-09-21 14:24 | NUR ---
I spoke with Dr. Koroma [facility] and said no pain medicine for now due to patient BP low, and also patient looks comfortable lying in bed. Regarding paracentesis, surgery dept. don't need GI doctor.
--- NOTE | 2016-09-21 15:00 | NUR ---
I spoke with DR. Mccain and he said his on-call for Dr. Blakely
[2016-09-21 16:00] VITALS: BP 90/43
--- NOTE | 2016-09-21 16:09 | NUR ---
Left message to Dr. Blakely voicemail
--- NOTE | 2016-09-21 16:30 | NUR ---
Left message to Lotus from Dr. Blakely office.
--- NOTE | 2016-09-21 18:40 | NUR ---
Dr. Blakely called back and he said his not taking in-patient, recommend to call Dr. Bell or DR. Vega. I notified MD that I already spoke with Dr. Mccain and said will not take the patient. Dr. Bell was notified yesterday and said that it his patient out-patient
--- NOTE | 2016-09-21 18:49 | NUR ---
Left message to Himanshu Koroma answering service, she will page DR. Sykes on-call.
--- NOTE | 2016-09-21 18:53 | NUR ---
I spoke with DR. Sykes and informed her of what's going on and he said she will talk to DR. Koroma and will have him talk to GI doctor.
--- NOTE | 2016-09-21 19:30 | NUR ---
RECEIVED REPORT FROM DAY RN AT BEDSIDE, PATIENT IS AAO X1, WITH MENTAL DELAY, AND CEREBRAL PALSY, PATIENT RESTING IN BED, FAMILY AT BEDSIDE, IV TO LFA PATENT AND INTACT, SKIN INTACT WITH PERIANAL REDNESS, ABDOMEN ROUND, DISTENDED AND FIRM. BILATERAL LOWER EXTREMITIES CONTRACTED. DISCUSSED PLAN OF CARE WITH PATIENT AND FAMILY PATIENT UNABLE TO COMPREHEND DUE TO MENTAL STATUS. DR TORRES CAME TO BEDSIDE, TO EVALUATE PATIENT, WILL F/U WITH ORDER, CALL LIGHT WITHIN REACH. WILL CONTINUE TO MONITOR PATIENT. SAFETY MEASURES CHECKED.
--- NOTE | 2016-09-21 19:41 | NUR ---
SBAR report given to PM RN, also received order from DR. Blakely and MD came to see patient as well.
--- NOTE | 2016-09-21 19:45 | NUR ---
RECEIVED VERBAL ORDERS FROM MD TORRES TO OBTAIN RECORDS FROM [facility], ORDER US OF ABDOMEN TO JAY SITE OF PARACENTESIS TO BE PERFORMED TOMORROW 09/22/16 AT 0730. PATIENT TO BE FULL LIQUID DIET, WILL PROVIDE WITH TRAY. WILL F/U WITH ORDERS.
--- NOTE | 2016-09-21 20:00 | NUR ---
CONSENT SIGNED BY PTS FATHER TO OBTAIN RECORDS FROM [facility].
--- NOTE | 2016-09-21 20:30 | NUR ---
PATIENT PROVIDED WITH MEAL TRAY, FULL LIQUID DIET, FAMILY TO ASSIST FEEDING PATIENT, INSTRUCTED FAMILY TO FEED SLOWLY TO PREVENT PATIENT FROM GETTING SICK. WILL CONTINUE TO MONITOR
--- NOTE | 2016-09-21 21:00 | NUR ---
PTS FATHER STATING PT C/O PAIN IN ABDOMEN, UNSURE IF FROM FOOD, PATIENT UNABLE TO COMMUNICATE PAIN LEVEL, FACIAL GRIMACING AND MOANING. BP DECREASED TO 98/58 HR 100. WILL ADMINISTER TYLENOL SUPPOSITORY AND MONITOR PATIENT
[2016-09-21] MEDS: ACETAMINOPHEN 650 MG SUPP RC PRN (21:11)
--- NOTE | 2016-09-21 21:30 | NUR ---
TYLENOL SUPPOSITORY ADMINISTERED, PATIENT CLEANED AND RESTING IN BED. PT TOLERATED WELL, WILL CONTINUE TO MONITOR PATIENT
[2016-09-21] MEDS: NYSTATIN POW 100 MU/GM 15 GM BTL TP SCH (21:39)
--- NOTE | 2016-09-21 22:00 | NUR ---
PATIENT RESTING IN BED, NO SIGN OF DISTRESS, WILL CONTINUE TO MONITOR.
[2016-09-22] VITALS: BP 91/39
--- NOTE | 2016-09-22 00:15 | NUR ---
VITAL SIGNS STABLE, NO SIGN OF DISTRESS, WILL CONTINUE TO MONITOR
[2016-09-22] MEDS: DEXT 5% /NACL 0.9% 1,000 ML IV SCH ×2 (02:10→13:45)
--- NOTE | 2016-09-22 02:15 | NUR ---
PATIENT CLEANED, RESTING IN BED, WILL CONTINUE TO MONITOR
--- NOTE | 2016-09-22 04:54 | NUR ---
PATIENT RESTING IN BED, NO SIGN OF DISTRESS, WILL CONTINUE TO MONITOR.
--- NOTE | 2016-09-22 07:30 | NUR ---
ENDORSED PATIENT TO DAY RN AT BEDSIDE, PATIENT IN STABLE CONDITION
--- NOTE | 2016-09-22 07:31 | NUR ---
RECEIVED REPORT AT BEDSIDE FOR CONTINUITY OF CARE. PT IS ASLEEP. DR VILLATORO (GI) CALLED AND ORDERED ATIVAN FOR PT PRIOR TO PARACENTESIS. UPDATED THE BOARD. PT'S ABDOMEN DISTENDED. U/S MARKED THE SPOT. PT HAS IV ON L FA 22G D5NS AT 80ML. ALL SUPPLIES READY AT BEDSIDE. WAITING ON DR TO ARRIVE.
[2016-09-22] MEDS: LORazepam 2 MG/ML VIAL IVP PRN (07:36)
[2016-09-22 08:00] VITALS: BP 89/45
--- NOTE | 2016-09-22 08:00 | NUR ---
DR VILLATORO CAME AND STARTED THE PARACENTESIS. OR NURSE AT BEDSIDE. DID TIMEOUT. PT TOLERATED WELL. PT HAS A NEEDLE IN HIS ABD, THE OTHER END IN THE LARGE VACUUM BOTTLE. WILL SWITCH OUT BOTTLES LIKE ORDERED. WILL CONTINUE TO MONITOR. MOM, GRANDMA, AND SISTER AT BEDSIDE.
[2016-09-22] MEDS: NYSTATIN POW 100 MU/GM 15 GM BTL TP SCH (09:00)
--- NOTE | 2016-09-22 09:10 | NUR ---
SWITCH OUT ANOTHER BOTTLE. PT TOLERATING WELL. WILL CONTINUE TO MONITOR PT.
--- NOTE | 2016-09-22 10:00 | NUR ---
TOTAL ASCITES 3200ML. 3 BOTTLES LABELED AND PLACED IN BIOHAZARD BAG AND SENT TO LAB. REMOVED NEEDLE AND PUT PRESSURE ON SIDE. APPLIED BAND-AID REQUESTED BY MD. PT TOLERATED WELL. PT STILL SLEEPING. FAMILY AT BEDSIDE. MEDIA AID NOTIFIED TO CLEAN PT. WILL CONTINUE TO MONITOR.
[2016-09-22] MEDS: PANTOPRAZOLE 40 MG INJ VIAL IVP SCH (10:06)
[2016-09-22] MEDS: SPIRONOLACTONE 25 MG TAB PO SCH (10:07)
[2016-09-22] MEDS: FUROSEMIDE 40 MG TAB PO SCH (10:07)
[2016-09-22] MEDS: ENOXAPARIN 40 MG/0.4 ML SYR SUBQ SCH (10:08)
[2016-09-22 11:07] LABS: GLUCOSE,BODY FLUID 106 mg/dL
[2016-09-22 11:08] LABS: PROTEIN, BODY FLUID 0.4 g/dL
--- NOTE | 2016-09-22 11:23 | NUR ---
CM NOTE CONCURRENT REVIEW FAXED TO [facility] AT [phone] PHONE [phone]
[2016-09-22] MEDS ORDERED: FURO40TA9 PO (12:09)
[2016-09-22] MEDS ORDERED: SPIR25TA PO (12:09)
[2016-09-22] MEDS ORDERED: TYL650S RC (12:09)
[2016-09-22] MEDS ORDERED: MYCPWD TP (12:09)
[2016-09-22 12:52] LABS: APPEARANCE,SPUN,BODY FLUID CLEAR (CLEAR); APPEARANCE,UNSPUN,BODY FLUID SLIGHTLY HAZY (CLEAR); SPECIMENTYPE,BODY FLUID PARACENTESIS
[2016-09-22 12:53] LABS: COLOR,BODY FLUID LT YELLOW (LT YELLOW); RBC, BODY FLUID 2 /cu. mm.; TOTAL VOLUME,BODY FLUID 3000 mL; WBC, BODY FLUID 7 /cu. mm.
[2016-09-22] MEDS: MORPHINE SULFATE 2 MG/ML SYR IVP PRN (13:49)
--- NOTE | 2016-09-22 13:49 | NUR ---
PT IS SOILED. CARE ADMINISTRATIVE TECH CLEANED PT UP. THE PARACENTESIS SITE LEAKING. CHANGED PRESSURE DRESSING. PT C/O PAIN. GAVE PAIN MED. WILL CONTINUE TO MONITOR PT.
--- NOTE | 2016-09-22 15:48 | NUR ---
PT SLEEPING COMFORTABLY. NO SIGNS OF DISTRESS. WILL CONTINUE TO MONITOR PT. WILL WORK ON DC.
[2016-09-22 16:00] VITALS: BP 88/49
--- NOTE | 2016-09-22 16:50 | NUR ---
PT SLEEPING. NO SIGNS OF DISTRESS. MOM ON THE PHONE. ASKED WHAT TIME HER RIDE IS COMING. STATED ABOUT 1 HR.
--- NOTE | 2016-09-22 17:30 | NUR ---
CHARANJIT GAVE D/C INSTRUCTIONS IN INDIAN. PARENT VERBALIZED UNDERSTANDING. REMOVED ALL ID BANDS. MOM WAITING FOR TO ARRIVE WITH STROLLER AND CAR. WILL CONTINUE TO MONITOR PT.
--- NOTE | 2016-09-22 18:40 | NUR ---
FATHER CAME AND REQUESTED ASSISTANCE TO GET PT DRESSED. ASSISTED PT. EDUCATED FAMILY ABOUT DRESSING CHANGE FROM THE PARACENTESIS TODAY. REMOVED IV, CANNULA INTACT. NO BLEEDING NOTED. PT TOLERATED WELL.
--- NOTE | 2016-09-22 18:50 | NUR ---
WALKED PT OUT ON HIS STROLLER WITH HIS PARENTS AT BEDSIDE. PT IS IN STABLE CONDITION.
== END 2016-09-22 18:50 | disposition home or self-care (01) | DRG 720 ==
LOC: MED 18:44 → MTU 22:37
PROVIDERS: ADMIT Hospitalist; ATTEND Hospitalist
PROC: 0W9G30Z Drainage of Peritoneal Cavity with Drainage Device, Percutaneous Approach (ICD-10-PCS; principal; 2016-09-22)
DX: A41.9 Sepsis, unspecified organism (principal); R18.8 Other ascites; E46 Unspecified protein-calorie malnutrition; E87.1 Hypo-osmolality and hyponatremia; E88.09 Other disorders of plasma-protein metabolism, not elsewhere classified; K92.2 Gastrointestinal hemorrhage, unspecified; K52.9 Noninfective gastroenteritis and colitis, unspecified; D64.9 Anemia, unspecified; F79 Unspecified intellectual disabilities; G80.9 Cerebral palsy, unspecified
CPT/HCPCS: 36415; 49083; 76705; 80053; 82150; 82272; 82945; 83690; 84157; 85025; 85610; 85730; 87070; 87081; 89051; 96365; 96375; 99285; C9113; J1650; J1885; J1956; J2001; J2060; J2270; J3480; J3490; J7030; J7042; P9046; Q0092

== ENCOUNTER 2016-11-15 10:49 | Inpatient (IN) | payer OTHER ==
[~2016-11-15] VITALS: Ht 147.3 cm; Wt 57.6 kg
[~2016-11-15 10:49] MED LIST changes: +FURO40TA9 PO; +MYCPWD TP; +SPIR25TA PO; +TYL650S RC
[2016-11-15 11:11] VITALS: BP 108/48
--- NOTE | 2016-11-15 12:45 | NUR ---
PATIENT PRESENTS TO ED WITH C/O WEAKNESS WITH DIARRHEA AND BLOOD, LAST ONE AT 0900;PER FATHER PT HAS ASCITIS SINCE 3 MONTHS AGO;HX; CEREBRAL PALSY, HEART MURMUR, HERNIA;PT CAN SPEAK A LITTLE BIT;SKIN IS PINK/WARM/DRY; AAOX4 WITH EVEN AND STEADY GAIT; LUNGS CLEAR BL; HR EVEN AND REGULAR; PT DENIES ANY CP COUGH AT THIS TIME; PATIENT STATES PAIN OF 0/10 AT THIS TIME;PATIENT POSITIONED FOR COMFORT; HOB ELEVATED; BEDRAILS UP X2; BED DOWN. ER MD MADE AWARE OF PT STATUS.
--- NOTE | 2016-11-15 12:47 | NUR ---
PATIENT TO BED 4 AT THIS TIME
[2016-11-15 13:42] LABS: BASOPHILS # (AUTO) 0.3 K/uL (0.00-0.22); BASOPHILS % (AUTO) 3.7 % (0.0-2.0); EOSINOPHILS # (AUTO) 0.1 K/uL (0-0.4); EOSINOPHILS % (AUTO) 0.9 % (0.0-4.0); HEMATOCRIT 30.7 % (36-52); HEMOGLOBIN 9.9 g/dL (12.0-18.0); LYMPHOCYTES # (AUTO) 0.5 K/uL (2.0-11.5); LYMPHOCYTES % (AUTO) 6.4 % (20.5-51.1); MEAN CORPUSCULAR HEMOGLOBIN 31 pg (27-31); MEAN CORPUSCULAR HGB CONC 32 g/dL (33-37); MEAN CORPUSCULAR VOLUME 97 fL (80-94); MONOCYTES # (AUTO) 0.3 K/uL (0.8-1.0); MONOCYTES % (AUTO) 3.7 % (1.7-9.3); NEUTROPHILS # (AUTO) 7.3 K/uL (1.8-7.7); NEUTROPHILS % (AUTO) 85.3 % (42.2-75.2); PLATELET COUNT (AUTO) 213 K/uL (140-450); RED BLOOD CELL COUNT(AUTO) 3.17 MIL/uL (4.20-6.10); RED CELL DISTRIBUTION WIDTH 16.9 % (11.6-13.7); WHITE BLOOD COUNT (AUTO) 8.5 K/uL (4.8-10.8)
--- NOTE | 2016-11-15 13:45 | NUR ---
PT RESTING ON BED;NO ACUTED DISTRESS NOTED;WILL CONTINUE TO MONITOR PT.
[2016-11-15 13:51] LABS: ANION GAP 9.3 (8-16); CALCIUM 7.7 mg/dL (8.5-10.1); CARBON DIOXIDE 30.3 mmol/L (21-32); CREATININE 0.4 mg/dL (0.7-1.3); POTASSIUM 3.6 mmol/L (3.5-5.1)
[2016-11-15 13:56] LABS: ALBUMIN 2.2 g/dL (3.4-5.0); TOTAL BILIRUBIN 0.4 mg/dL (0.0-1.0)
[2016-11-15 13:59] LABS: PARTIAL THROMBOPLASTIN TIME 27.1 secs (22-35.6); PROTHROMBIN TIME 10.1 secs (10.8-13.4)
--- NOTE | 2016-11-15 14:44 | NUR ---
DR IRENE AT BEDSIDE.
[2016-11-15] MEDS ORDERED: MORPHINE SULFATE 2 MG/ML SYR IVP PRN (15:40)
[2016-11-15] MEDS ORDERED: ONDANSETRON 4 MG/2 ML VIAL IVP PRN (15:40)
[2016-11-15] MEDS ORDERED: LORazepam 2 MG/ML VIAL IVP PRN (15:40)
[2016-11-15] MEDS ORDERED: PANTOPRAZOLE 80 MG in NACL 0.9% 100 ML IVP SCH (16:00)
--- NOTE | 2016-11-15 16:00 | NUR ---
Patient will be admitted to care of [address] Admited to TELE. Will go to room 111 B. Belongings list completed. Report to ISIAH ANDRE.
[2016-11-15 16:07] LABS: HEMATOCRIT 31.3 % (36-52); HEMOGLOBIN 10.3 g/dL (12.0-18.0)
[2016-11-15 17:00] VITALS: BP 102/54
--- NOTE | 2016-11-15 17:00 | NUR ---
RECEIVED PT FROM ER. AWAKE, ALERT ORIENTED X2-3. PER JALIL ASSISTED BY ER STAFF. TRANSFERRED TO BED SAFELY AND COMFORTABLY. FAMILY AT BEDSIDE. NO SOB NOTED, DENIES ANY PAIN OR DISCOMFORT AT THIS TIME. POSITIVE BOWEL SOUNDS NOTED ON FOUR QUADRANTS. PT VERBAL BUT SLURRED SPEECH, PERAZA, SOMETIMES COOPERATIVE SOMETIMES NOT. PT ON BEDREST, PT INCONTINENT. HOOKED ON IVF PER MD ORDER. SAFETY PRECAUTION IN PLACE. CALL LIGHT WITHIN REACH.
[2016-11-15] MEDS: NACL 0.9% 1,000 ML IV SCH (17:09)
[2016-11-15] MEDS: PANTOPRAZOLE 80 MG in NACL 0.9% 100 ML IVP SCH (17:09)
--- NOTE | 2016-11-15 19:31 | NUR ---
PT KEPT CLEAN, DRY AND COMFORTABLE, NEEDS ATTENDED, NO SOB NOTED. PT DENIES ANY PAIN OR DISCOMFORT AT THIS TIME. ENDORSED TO NEXT SHIFT ON STABLE CONDITION FOR CONTINUITY OF CARE.
--- NOTE | 2016-11-15 19:32 | NUR ---
RECEIVED REPORT FROM AM NURSE. PT FAMILY AT BEDSIDE. PT RESTING IN BED, AOX2, PT HAS HX OR CEREBRAL PALSY AND MENTAL RETARDATION, ABLE TO VERBALIZE NEEDS, WILL CONTINUE TO REINFORCE CONSTANT TEACHING. PT DENIES S/S OF ACUTE DISTRESS. INDUSTRIAL HYGIENIST IN PLACE. CACHETIC APPEARANCE NOTED, ABD ASCITES NOTED. IV ACCESS ASYMPTOMATIC, PATENT AND INTACT. IVPB INFUSING WELL. DISCUSSED AND REVIEWED PLAN OF CARE WITH PT AND FAMILY. PT AND PT'S FAMILY INSTRUCTED TO KEEP PT NPO. PT'S FAMILY VERBALIZED UNDERSTANDING. ALL NEEDS MET. SAFETY MEASURES ENSURED. CALL LIGHT WITHIN REACH. WILL CONTINUE TO MONITOR.
[2016-11-15 20:00] VITALS: BP 108/52
--- NOTE | 2016-11-15 22:00 | NUR ---
PT SLEEPING COMFORTABLY. IVPB INFUSING WELL. PT'S FAMILY REFUSED TO HAVE PT TURNED AND REPOSITIONED AT THIS TIME TO LET PT SLEEP. ALL NEEDS MET. SAFETY MEASURES ENSURED CALL LIGHT WITHIN REACH. WILL CONTINUE TO MONITOR.
[2016-11-16] VITALS: BP 96/52
--- NOTE | 2016-11-16 | NUR ---
ATTEMPTED TO INSERT IV FOR MAINTENANCE FLUIDS. UNSUCCESSFUL AFTER 2 ATTEMPTS. WILL ASK ANOTHER RN TO INSERT IV. PT HAD VERY SMALL DARK SOLID BM AND WET DIAPER, PT CLEANED. PT TURNED AND REPOSITIONED. PT TOLERATED WELL. ALL NEEDS MET. SAFETY MEASURES ENSURED. CALL LIGHT WITHIN REACH.
[2016-11-16] MEDS: NACL 0.9% 1,000 ML IV SCH ×3 (01:36→21:52)
[2016-11-16] MEDS: PANTOPRAZOLE 80 MG in NACL 0.9% 100 ML IVP SCH (01:46)
--- NOTE | 2016-11-16 02:20 | NUR ---
ICU NURSE AT BEDSIDE TO PUT IN NEW IV ACCESS 24G AT LEFT FOREARM. PT TOLERATED WELL. IVF AND PROTONIX DRIP INFUSING WELL. ASSISTED PT TO TURN AND REPOSITION, OFFLOADED PRESSURE AREAS. PT TOLERATED WELL. ALL NEEDS MET. SAFETY MEASURES ENSURED. CALL LIGHT WITHIN REACH. WILL CONTINUE TO MONITOR.
[2016-11-16 04:00] VITALS: BP 106/49
--- NOTE | 2016-11-16 04:00 | NUR ---
PT CLEANED, TURNED AND REPOSITIONED BY CNAs. OFFLOADED PRESSURE AREAS. PT TOLERATED WELL. IVF AND PROTONIX IVPB INFUSING WELL. ALL NEEDS MET. SAFETY MEASURES ENSURED. CALL LIGHT WITHIN REACH. WILL CONTINUE TO MONITOR.
--- NOTE | 2016-11-16 05:30 | NUR ---
RECEIVED CALL FROM DR HERNANDEZ, DISCUSSED PT CONDITION AND THAT PT HAD A VERY SMALL BM WITH NO EVIDENCE OF ACTIVE BLEEDING. MD STATED THAT PT CAN EAT BREAKFAST AND MD WILL BE IN TO SEE PT IN THE MORNING. ORDERS RECEIVED FOR SOFT MECHANICAL DIET.
[2016-11-16 06:36] LABS: ANION GAP 10.3 (8-16); CREATININE 0.4 mg/dL (0.7-1.3); POTASSIUM 4.3 mmol/L (3.5-5.1)
[2016-11-16 06:48] LABS: HEMATOCRIT 30.5 % (36-52); HEMOGLOBIN 10.2 g/dL (12.0-18.0); MEAN CORPUSCULAR HEMOGLOBIN 33 pg (27-31); MEAN CORPUSCULAR HGB CONC 33 g/dL (33-37); MEAN CORPUSCULAR VOLUME 98 fL (80-94); PLATELET COUNT (AUTO) 201 K/uL (140-450); RED BLOOD CELL COUNT(AUTO) 3.13 MIL/uL (4.20-6.10); RED CELL DISTRIBUTION WIDTH 16.4 % (11.6-13.7); WHITE BLOOD COUNT (AUTO) 8.6 K/uL (4.8-10.8)
--- NOTE | 2016-11-16 06:49 | NUR ---
DR TORRES IN TO SEE PT, DISCUSSED AND REVIEWED PT PLAN OF CARE. STATED THAT PT LOOKS GOOD, THERE IS NO ACTIVE BLEEDING, NO ASCITES, AND NO PLANS FOR ENDOSCOPY. STATED PT CAN BE DISCHARGED. Addendum: 11/16/16 at 0657 by Obi He RN ORDERS RECEIVED TO D/Rachele DSOUZA.
[2016-11-16 06:53] LABS: EOSINOPHILS % (MANUAL) 1 % (0-4); LYMPHOCYTES % (MANUAL) 10 % (20-46); MONOCYTES % (MANUAL) 3 % (5-12); NEUTROPHILS % (MANUAL) 86 (43-65); PLATELET ESTIMATE ADEQUATE
--- NOTE | 2016-11-16 07:20 | NUR ---
ENDORSED PLAN OF CARE TO AM NURSE. CONDITION STABLE.
--- NOTE | 2016-11-16 07:44 | NUR ---
RECEIVED REPORT FROM NIGHT NURSE, PT IS AAOX2, PT IS ON ROOM AIR, IV TO R FA 22G, INFUSING WELL,PATENT AND INTACT, L FA 24 G SALINE LOCK, PATENT AND INTACT, PT IS ON RA, SKIN IS INTACT, INITIAL ASSESSMENT COMPLETED, REVIEWED PLAN OF CARE WITH PATIENT AND MOTHER AT BEDSIDE, PTS MOTHER VERBALIZED UNDERSTANDING, ALL SAFETY PRECAUTIONS MET, CALL LIGHT WITHIN REACH, WILL CONTINUE TO MONITOR.
[2016-11-16 07:55] VITALS: BP 109/53
--- NOTE | 2016-11-16 07:55 | NUR ---
PATIENT HAS BEEN SCREENED AND CATEGORIZED HIGH NUTRITION RISK. PATIENT WILL BE SEEN WITHIN 1-2 DAYS OF ADMISSION. 11/16/16-11/17/[address]
--- NOTE | 2016-11-16 09:42 | NUR ---
CHECKED IN ON PT, PT RESTING COMFORTABLY IN BED, NO SIGNS OF DISTRESS, ALL SAFETY PRECAUTIONS MET, CALL LIGHT WITHIN REACH, WILL CONTINUE TO MONITOR.
--- NOTE | 2016-11-16 09:50 | NUR ---
CM NOTE FAXED INITIAL REVIEW TO [facility] [phone]
[2016-11-16 12:00] VITALS: BP 97/56
--- NOTE | 2016-11-16 12:00 | NUR ---
CHECKED IN ON PT, PT RESTING COMFORTABLY IN BED, NO SIGNS OF DISTRESS, ALL SAFETY PRECAUTIONS MET, CALL LIGHT WITHIN REACH, WILL CONTINUE TO MONITOR
[2016-11-16] MEDS ORDERED: Z-GUARD PASTE TP PRN (14:25)
--- NOTE | 2016-11-16 14:26 | NUR ---
11/16/16 RD INITIAL ASSESSMENT COMPLETED PLEASE REFER TO NUTRITION ASSESSMENT UNDER CARE ACTIVITY FOR ESTIMATED NUTRITIONAL NEEDS. 1. CONTINUE PUREE DIET 2. RD TO FOLLOW UP WITHIN 2-3 DAYS; HIGH RISK [address]
--- NOTE | 2016-11-16 14:27 | NUR ---
PLACED PT ON CONTACT PRECAUTION R/O C-DIFF, EDUCATED FATHER ON CONTACT PRECAUTION, HE VERBALIZED UNDERSTANDING. ALL NEEDS MET, WILL CONTINUE TO MONITOR.
[2016-11-16 16:00] VITALS: BP 97/46
--- NOTE | 2016-11-16 16:05 | NUR ---
CHECKED IN ON PT, PT RESTING COMFORTABLY IN BED, FATHER AT BEDSIDE, NO SIGNS OF DISTRESS, PT DENIES PAIN, NO S/S OF PAIN. ALL NEEDS MET, ALL SAFETY PRECAUTIONS IN PLACE, CALL LIGHT WITHIN REACH, WILL CONTINUE TO MONITOR.
[2016-11-16 16:17] LABS: HEMATOCRIT 28.5 % (36-52); HEMOGLOBIN 9.4 g/dL (12.0-18.0)
--- NOTE | 2016-11-16 19:20 | NUR ---
ENDORSED PLAN OF CARE TO NIGHT NURSE, PT IN STABLE CONDITION, FAMILY AT BEDSIDE, ALL SAFETY PRECAUTIONS MET, CALL LIGHT WITHIN REACH.
--- NOTE | 2016-11-16 19:30 | NUR ---
RECEIVED PATIENT REPORT AT BEDSIDE. PATIENT IS ALERT AND AWAKE. IV ACCESS RIGHT FOREARM, IVF RUNNING WELL. NO S/SX OF DISTRESS. NO COMPLAINTS OF PAIN. FAMILY IS AT BEDSIDE. BED IS IN LOWEST POSITION AND CALL LIGHT IS WITHIN REACH. WILL CONTINUE TO MONITOR.
[2016-11-16 20:00] VITALS: BP 106/43
--- NOTE | 2016-11-16 20:30 | NUR ---
PATIENT HAD A BM. STOOL WAS GREENISH BROWN, SEMI-FORMED, MODERATE IN AMOUNT. LONG CARE GIVEN. PATIENT REPOSITIONED FOR COMFORT. WILL CONTINUE TO MONITOR.
[2016-11-17] VITALS: BP 112/55
--- NOTE | 2016-11-17 | NUR ---
CHECKED ON PATIENT. PATIENT ASLEEP. NO S/SX OF DISTRESS
[2016-11-17 04:00] VITALS: BP 102/50
--- NOTE | 2016-11-17 04:30 | NUR ---
PATIENT HAD A BM. STOOL WAS BROWN AND MUSHY, MODERATE IN AMOUNT. LONG CARE WAS DONE. PATIENT REPOSITIONED FOR COMFORT. WILL CONTINUE TO MONITOR.
[2016-11-17 06:30] LABS: HEMATOCRIT 26.6 % (36-52); HEMOGLOBIN 8.9 g/dL (12.0-18.0); MEAN CORPUSCULAR HEMOGLOBIN 33 pg (27-31); MEAN CORPUSCULAR HGB CONC 33 g/dL (33-37); MEAN CORPUSCULAR VOLUME 99 fL (80-94); PLATELET COUNT (AUTO) 208 K/uL (140-450); RED CELL DISTRIBUTION WIDTH 17.1 % (11.6-13.7); WHITE BLOOD COUNT (AUTO) 10.9 K/uL (4.8-10.8)
[2016-11-17 06:37] LABS: ALBUMIN 1.9 g/dL (3.4-5.0); ANION GAP 9.4 (8-16); CALCIUM 7.5 mg/dL (8.5-10.1); CARBON DIOXIDE 26.2 mmol/L (21-32); CREATININE 0.5 mg/dL (0.7-1.3); POTASSIUM 3.6 mmol/L (3.5-5.1); TOTAL BILIRUBIN 0.3 mg/dL (0.0-1.0); TOTAL PROTEIN, SERUM 5.4 g/dL (6.4-8.2)
[2016-11-17 07:05] LABS: BAND % (MANUAL) 13 % (0-8); LYMPHOCYTES % (MANUAL) 6 % (20-46); MONOCYTES % (MANUAL) 7 % (5-12); NEUTROPHILS % (MANUAL) 74 (43-65)
--- NOTE | 2016-11-17 07:20 | NUR ---
PATIENT REPORT GIVEN TO MORNING NURSE. PATIENT CONTINUES TO BE IN STABLE CONDITION
[2016-11-17 08:00] VITALS: BP 101/47
[2016-11-17] MEDS: NACL 0.9% 1,000 ML IV SCH ×2 (08:06→19:51)
[2016-11-17] MEDS ORDERED: FUROSEMIDE 40 MG TAB PO SCH (09:07)
[2016-11-17] MEDS ORDERED: SPIRONOLACTONE 25 MG TAB PO SCH (09:08)
--- NOTE | 2016-11-17 09:31 | NUR ---
LASIX AND SPIRONOLACTONE NOT GIVEN B/P WAS 94/49, MOTHER SHILPI STATES SHE HOLDS BOTH MEDICATIONS IF B/P IS TOO LOW.ALL NEEDS MET, CALL LIGHT WITHIN REACH, WILL CONTINUE TO MONITOR.
--- NOTE | 2016-11-17 09:37 | NUR ---
CM NOTE PRESCRIPTION ORDER FOR OUTPATIENT PHYSIATRY EVALUATION FOR CUSTOM WHEELCHAIR BY DR. HIGGINS. SPOKE WITH [facility] PH [phone] EXT [phone] WHO SAID PATIENT WILL CALL OFFICE OF DR. BRICE BOWER ([facility]) TO SCHEDULE FOR AN APPOINTMENT PH [phone], AUTHORIZATION# [id number], EXPIRATION 02/15/2017. RECEIVED FAX OF THE AUTHORIZATION FROM [facility]. CHARGE NURSE MOROCHO AND NURSE CHARANJIT SHIPMAN. Addendum: 11/17/16 at 1228 by Lubna Guerrero CM PER [facility], THE AUTHORIZATION FOR THE OUTPATIENT PHYSIATRY EVALUATION WAS ALREADY FAXED TO DR. Edmond BOWER'S OFFICE Addendum: 11/18/16 at 0910 by Lubna Guerrero CM *LATE ENTRY INFORMATION ABOUT DR. BRICE BOWER'S OFFICE GIVEN TO PT'S MOTHER
--- NOTE | 2016-11-17 10:55 | NUR ---
CM NOTE FAXED CONCURRENT REVIEW TO [facility] [phone] [facility] [phone] EXT [phone]
[2016-11-17 12:00] VITALS: BP 94/47
--- NOTE | 2016-11-17 13:19 | NUR ---
CHECKED IN ON PT. PT RESTING COMFORTABLY IN BED WITH MOTHER AT BEDSIDE. NO SIGNS OF DISTRESS. ALL SAFETY PRECAUTIONS MET, CALL LIGHT WITHIN REACH, WILL CONTINUE TO MONITOR.
--- NOTE | 2016-11-17 14:25 | NUR ---
DISCUSSED DISCHARGE PLAN WITH PT'S MOTHER SHILPI, MOTHER VERBALIZED UNDERSTANDING.
[2016-11-17 15:44] LABS: HEMATOCRIT 31.1 % (36-52); HEMOGLOBIN 10.1 g/dL (12.0-18.0)
[2016-11-17 16:00] VITALS: BP 104/55
[2016-11-17] MEDS ORDERED: ACETAMINOPHEN 650 MG/20.3 ML UDC PO PRN (17:30)
--- NOTE | 2016-11-17 18:20 | NUR ---
PT'S DAD TERESITA AND MOTHER SHILPI STATE PT IS NOT READY TO GET DISCHARGE HOME, THEY STATE THAT PT'S STOMACH IS TOO DISTENDED AND WOULD LIKE FOR PT TO GET A PARACENTESIS, INFORMED PARENTS THAT I CONTACT DR. TORRES.
--- NOTE | 2016-11-17 18:30 | NUR ---
CALLED DR. TORRES INFORMED HIM REGARDING PT'S DAD REFUSAL OF DISCHARGE, DR TORRES STATES THAT HE WILL FOLLOW UP AN OUTPATIENT, INFORMED FATHER TERESITA AND MOTHER SHILPI THAT PER DR TORRES THEY SHOULD FOLLOW UP OUT PATIENT, FATHER STATES THAT PT IS NOT READY TO GO HOME AND WOULD LIKE TO SPEAK TO CHARGE NURSE.
--- NOTE | 2016-11-17 18:40 | NUR ---
RASHAWN CHARGE NURSE IN TO SPEAK WITH PT'S FATHER. WE NOTIFY PT FATHER THAT WILL WILL CONTACT DR. TORRES AGAIN.
--- NOTE | 2016-11-17 18:50 | NUR ---
CALLED DR TORRES, PER DR TORRES: SHOULD BE CONTACTED.
--- NOTE | 2016-11-17 19:05 | NUR ---
PAGED DR HIGGINS, DR HENDRIX GENER[employer]SE WORKER. AWAITING CALL BACK
--- NOTE | 2016-11-17 19:40 | NUR ---
RECEIVED REPORT FROM AM NURSE, AWAKE, AOX2-3. FAMILY AT BEDSIDE, NO SOB NOTED, DENIES PAIN OR DISCOMFORT. POSITIVE BOWEL SOUNDS NOTED AND ABDOMEN DISTENDED. IS VERBAL BUT IS UNCOOPERATIVE. ON BEDREST, INCONTINENT. WITH AN IV INTACT AND PATENT, WILL CONTINUE TO MONITOR. ON TELE MONITORING. ALL NEEDS ATTENDED. CALL LIGHT WITHIN REACH. REORIENTED FAMILY TO THE UNIT, VERBALIZED UNDERSTANDING. GOT A CALL BACK FROM DR. HENDRIX, SAID TO HOLD THE DISCHARGE TILL DR. HIGGINS COMES TO SEE THE PATIENT.
--- NOTE | 2016-11-17 19:40 | NUR ---
ENDORSED PLAN OF CARE TO NIGHT NURSE, AWAITING CALL FROM DR. HENDRIX.
[2016-11-17 20:00] VITALS: BP 109/70
--- NOTE | 2016-11-17 23:57 | NUR ---
CONTINUITY OF CARE ENDORSED TO SENG RN, IN STABLE CONDITION.
--- NOTE | 2016-11-17 23:58 | NUR ---
RECEIVED FROM ANOTHER RN PT. SLEEPING. MENTALLY RETARDED MALE WITH MOTHER AT BEDSIDE. DX. OF GI BLEEDING. PT.S MOTHER ABLE TO USE CALL LIGHT FOR HELP. WITH RFA #22 INFUSING WITH NS AT 100 ML/H. SKIN INTACT. NEEDS ANTICIPATED AND WILL BE MET. INCONTINENT TO B AND B. CARE PLANS FOR THE NIGHT DISCUSSED WITH MOTHER .
[2016-11-18 00:21] VITALS: BP 110/55
--- NOTE | 2016-11-18 02:00 | NUR ---
SLEEPING. NO RESTLESSNESS. CALL LIGHT WITH IN REACH. IVF SITE TO RFA INTACT AND NO INFILTRATION. WITH NS AT 100 ML PER HOUR.
[2016-11-18] MEDS: NACL 0.9% 1,000 ML IV SCH ×2 (03:36→13:36)
[2016-11-18 04:00] VITALS: BP 94/42
--- NOTE | 2016-11-18 04:00 | NUR ---
VITAL SIGNS TAKEN AND NO COMPLAINTS DONE.
--- NOTE | 2016-11-18 06:34 | NUR ---
AWAKE AT THIS TIME. MOTHER AT BEDSIDE SLEEPING. PT. NO RESTLESSNESS NOTED. TOTAL CARE. NEEDS ANTICIPATED AND MET;
--- NOTE | 2016-11-18 07:05 | NUR ---
RECEIVED REPORT, ASSUMED CARE. PT SLEEPING AT THIS TIME, EASY TO AROUSED. MOTHER AT BEDSIDE.NO S/S OF RESPIRATORY DISTRESS AT THIS TIME. NO FACIAL GRIMACING OR MOANING INDICATING PAIN. IV ACCESS TO RIGHT FOREARM, GAUGE 22. INFUSING NS AT 100ML/HR. SL TO LT FOREARM INTACT AND PATENT. NO S/S OF INFILTRATION AT THIS TIME. ALL NEEDS ANTICIPATED. BED ALARM IN PLACE. CALL LIGHT WITHIN EASY REACH. WILL CONTINUE TO MONITOR.
[2016-11-18 08:00] VITALS: BP 95/46
--- NOTE | 2016-11-18 08:10 | NUR ---
PT AWAKE AND RESPONSIVE, MUMBLES TO SELF. COOLING MEASURES INITIATED DUE TO TEMP OF 99.1. PT'S SKIN WARM TO TOUCH. PT DENIES ANY PAIN AT THIS TIME. PT HAD LOOSE BM. KEPT CLEAN AND DRY. WILL CONTINUE TO MONITOR.
[2016-11-18] MEDS ORDERED: SPIRONOLACTONE 25 MG TAB PO SCH (09:00)
[2016-11-18] MEDS ORDERED: FUROSEMIDE 40 MG TAB PO SCH (09:00)
--- NOTE | 2016-11-18 09:01 | NUR ---
RECEIVED PHONE ORDER FROM DR. TORRES TO DO ABDOMINAL US WITH MARKING ASCITES FOR POSSIBLE PARACENTESIS. ORDER NOTED AND CARRIED OUT.
--- NOTE | 2016-11-18 09:39 | NUR ---
ALL DUE MEDS ADMINISTERED. PT COMPLIANT BUT NEEDS A LOT OF CUEING AND PROMPTING. NO ACUTE CHANGES NOTED AT THIS TIME. WILL CONTINUE TO MONITOR.
--- NOTE | 2016-11-18 09:39 | NUR ---
CM NOTE FAXED CONCURRENT REVIEW TO [facility] [place] [phone] [facility] [phone] EXT [phone]
[2016-11-18 12:00] VITALS: BP 102/45
--- NOTE | 2016-11-18 12:36 | NUR ---
ABDOMINAL US RESULT SHOWS MODERATE ASCITES. INFORMED DR. TORRES ABOUT IT, PER MD, "NO TAPPING NECESSARY AND PATIENT CAN GO HOME IF OKAY WITH DR. HIGGINS. AND TO NOTIFY PATIENT'S FATHER REGARDING ULTRASOUND RESULT.
--- NOTE | 2016-11-18 13:13 | NUR ---
PATIENT'S MOTHER AT BEDSIDE, INFORMED OF ABDOMINAL RESULT AND THAT PATIENT DOESN'T NEED ANY PARACENTESIS AT THIS TIME PER DR. TORRES. PT CAN GO HOME IF OKAY WITH DR. HIGGINS, SHE STATES STILL AT WORK AND WILL BE HERE IN 3 HRS.
--- NOTE | 2016-11-18 13:21 | NUR ---
DR. HIGGINS CURRENTLY IN THE UNIT, DISCUSSED ABOUT ABDOMINAL US RESULT AND THAT PT HAS BEEN CLEARED BY DR. TORRES FOR DISCHARGE. STATES PT CAN GO HOME TODAY. INFORMED SHILPI (MOTHER), SHE VERBALIZED UNDERSTANDING AND STATES SHE'S GOING TO WAIT FOR HER TO COME FROM WORK.
--- NOTE | 2016-11-18 13:37 | NUR ---
11/18/16 RD FOLLOW-UP ASSESSMENT COMPLETED PLEASE REFER TO NUTRITION ASSESSMENT UNDER CARE ACTIVITY FOR ESTIMATED NUTRITIONAL NEEDS. 1. CONTINUE REGULAR, PUREE DIET 2. RD TO FOLLOW-UP 3-5 DAYS, MODERATE RISK [address]
--- NOTE | 2016-11-18 14:08 | NUR ---
PT RESTING IN BED AT THIS TIME. NO ACUTE CHANGES NOTED. NO S/S OF RESPIRATORY DISTRESS. WILL CONTINUE TO MONITOR.
--- NOTE | 2016-11-18 14:58 | NUR ---
CONVERSATION TRANSLATED BY ESHA([id number]) FROM [employer]. ALL QUESTIONS ANSWERED AND VERBALIZED UNDERSTANDING. WILL CONTINUE TO MONITOR.
[2016-11-18 16:00] VITALS: BP 100/44
--- NOTE | 2016-11-18 18:45 | NUR ---
DISCHARGE INSTRUCTIONS AND TEACHINGS EXPLAINED TO FATHER (TERESITA), FATHER VERBALIZED UNDERSTANDING,AND SIGNED DISCHARGE PAPERS. NAME ARMBAND REMOVED. IV CANNULA REMOVED AND INTACT. TELEMONITOR REMOVED. REMINDED FATHER TO FOLLOW UP WITH PCP WITHIN 1 WEEK. NO SOB NOTED. NO SIGNS AND SYMPTOMS OF ACUTE PAIN OR DISCOMFORT NOTED AT THIS TIME. PT WAS WHEELED BY FATHER GOING OUT OF THE HOSPITAL TO THE HOSPITAL PARKING LOT TO THEIR PRIVATE OWNED CAR. PT DISCHARGED ON STABLE CONDITION.
== END 2016-11-18 18:50 | disposition home or self-care (01) | DRG 253 ==
LOC: MED 10:49 → MTU 15:42
PROVIDERS: ADMIT Hospitalist; ATTEND Hospitalist
DX: K62.5 Hemorrhage of anus and rectum (principal); E43 Unspecified severe protein-calorie malnutrition; K76.6 Portal hypertension; K74.60 Unspecified cirrhosis of liver; D62 Acute posthemorrhagic anemia; G80.9 Cerebral palsy, unspecified; F79 Unspecified intellectual disabilities; Z68.1 Body mass index [BMI] 19.9 or less, adult; Z79.899 Other long term (current) drug therapy
CPT/HCPCS: 36415; 76705; 80048; 80053; 82140; 83540; 83735; 85018; 85025; 85610; 85730; 87081; 99285; C9113; J2270; J2405; J7030; Q0092

== ENCOUNTER 2017-01-19 06:21 | Day surgery (SDC) | payer OTHER ==
[~2017-01-19] VITALS: Ht 147.3 cm; Wt 33.6 kg
[~2017-01-19 06:21] MED LIST changes: -ENAL20TA46 PO; -MYCPWD TP; -TYL650S RC
[2017-01-19 07:00] LABS: BASOPHILS # (AUTO) 0.1 K/uL (0.00-0.22); BASOPHILS % (AUTO) 1.2 % (0.0-2.0); EOSINOPHILS # (AUTO) 0.1 K/uL (0-0.4); EOSINOPHILS % (AUTO) 1.2 % (0.0-4.0); HEMATOCRIT 27.7 % (36-52); LYMPHOCYTES # (AUTO) 0.7 K/uL (2.0-11.5); LYMPHOCYTES % (AUTO) 8.7 % (20.5-51.1); MEAN CORPUSCULAR HEMOGLOBIN 31 pg (27-31); MEAN CORPUSCULAR HGB CONC 33 g/dL (33-37); MEAN CORPUSCULAR VOLUME 96 fL (80-94); MONOCYTES # (AUTO) 0.5 K/uL (0.8-1.0); MONOCYTES % (AUTO) 7.2 % (1.7-9.3); NEUTROPHILS # (AUTO) 6.2 K/uL (1.8-7.7); NEUTROPHILS % (AUTO) 81.7 % (42.2-75.2); PLATELET COUNT (AUTO) 298 K/uL (140-450); RED BLOOD CELL COUNT(AUTO) 2.87 MIL/uL (4.20-6.10); RED CELL DISTRIBUTION WIDTH 14.7 % (11.6-13.7)
[2017-01-19] MEDS ORDERED: LIDOCAINE 2% 1000 MG/50 ML VIAL INJ ONE (07:05)
[2017-01-19 07:11] LABS: ANION GAP 8.1 (8-16); CARBON DIOXIDE 30.6 mmol/L (21-32); CREATININE 0.5 mg/dL (0.7-1.3); POTASSIUM 3.7 mmol/L (3.5-5.1)
[2017-01-19 07:12] LABS: WHITE BLOOD COUNT (AUTO) 7.6 K/uL (4.8-10.8)
[2017-01-19 07:17] LABS: ALBUMIN 1.9 g/dL (3.4-5.0); TOTAL BILIRUBIN 0.3 mg/dL (0.0-1.0)
[2017-01-19 07:30] LABS: PROTHROMBIN TIME 10.5 secs (10.8-13.4)
[2017-01-19] MEDS ORDERED: fentaNYL 0.05 MG/ML VIAL ONE (07:56)
[2017-01-19] MEDS ORDERED: MIDAZOLAM 2 MG/2 ML VIAL ONE (07:56)
[2017-01-19] MEDS ORDERED: FURO-572 PO (08:42)
[2017-01-19] MEDS ORDERED: POTA10TE30 PO (08:42)
[2017-01-19] MEDS ORDERED: fentaNYL 0.05 MG/ML VIAL IVP ONE (08:55)
[2017-01-19] MEDS ORDERED: MIDAZOLAM 2 MG/2 ML VIAL IV ONE (08:55)
== END 2017-01-19 11:30 | disposition home or self-care (01) ==
LOC: MDS 06:21 → MMU 06:23 → MDS 11:30
PROVIDERS: ATTEND Internal Medicine Gastroenterology
DX: K74.60 Unspecified cirrhosis of liver (principal); G80.9 Cerebral palsy, unspecified; K76.6 Portal hypertension; Z98.890 Other specified postprocedural states
CPT/HCPCS: 36415; 49083; 71010; 76705; 80053; 85025; 85610; 85730; J2001; J2250; J3010; J7120; Q0092

== ENCOUNTER 2017-06-19 11:36 | Emergency (ER) | payer OTHER ==
[~2017-06-19] VITALS: Ht 147.3 cm; Wt 34.0 kg
[~2017-06-19 11:36] MED LIST changes: +FURO-572 PO; +POTA10TE30 PO
[2017-06-19 11:50] VITALS: BP 97/45
--- NOTE | 2017-06-19 13:00 | NUR ---
22 YO M BIB FATHER W/ C/O N/V/D X 4 DAYS. NOT BEEN ABLE TO KEEP DOWN ANY PO FOOD/FLUIDS. HX CEREBRAL PALSY, CIRRHOSIS OF THE LIVER, HEART MURMUR, ASCITIS, CHOLECYSTECTOMY. NKDA. PER FATHER, PT BASELINE NEUROLOGICALLY PER DX CEREBRAL PALSY . PT VERBAL, BUT NONCOHERENT. CMS INTACT. NO S/S OF ACUTE RESPIRATORY DISTRESS. MUCOUS MEMBRANES ARE PINK, BUT APPEAR TO BE A LITTLE DRY, NOT SEVERE. PERRLA INTACT. ABD SOFT, NON-TENDER. PT DENIES PAIN, USING FLACC, SCORE 0. NO N/V/D AT THIS TIME. ER MD DENG AWARE OF PT CONDITION. PT NEEDS MET AT THIS TIME. WILL CONTINUE TO MONITOR.
[2017-06-19 13:06] LABS: HEMATOCRIT 32.6 % (36-52); HEMOGLOBIN 10.8 g/dL (12.0-18.0); MEAN CORPUSCULAR HEMOGLOBIN 31 pg (27-31); MEAN CORPUSCULAR HGB CONC 33 g/dL (33-37); MEAN CORPUSCULAR VOLUME 92 fL (80-94); PLATELET COUNT (AUTO) 171 K/uL (140-450); RED BLOOD CELL COUNT(AUTO) 3.54 MIL/uL (4.20-6.10); RED CELL DISTRIBUTION WIDTH 16.7 % (11.6-13.7); WHITE BLOOD COUNT (AUTO) 6.7 K/uL (4.8-10.8)
[2017-06-19 13:19] LABS: ANION GAP 12.2 (8-16); CARBON DIOXIDE 26.6 mmol/L (21-32); CREATININE 0.5 mg/dL (0.7-1.3); POTASSIUM 3.8 mmol/L (3.5-5.1); TOTAL BILIRUBIN 0.7 mg/dL (0.0-1.0)
[2017-06-19 14:22] LABS: EOSINOPHILS % (MANUAL) 4 % (0-4); LYMPHOCYTES % (MANUAL) 6 % (20-46); MONOCYTES % (MANUAL) 4 % (5-12)
[2017-06-19 15:47] VITALS: BP 113/59
--- NOTE | 2017-06-19 15:47 | NUR ---
Patient discharged with v/s stable. Written and verbal after care instructions given and explained. Patient alert, oriented and verbalized understanding of instructions. Wheel Chair Assisted with by parent. All questions addressed prior to discharge. ID band removed. Patient advised to follow up with PMD. Rx of ZOFRAN 4MG & MOTRIN 15 ML given. Patient educated on indication of medication including possible reaction and side effects. Opportunity to ask questions provided and answered.
== END 2017-06-19 15:47 | disposition home or self-care (01) ==
LOC: MED 11:36
DX: R10.13 Epigastric pain (principal); R11.2 Nausea with vomiting, unspecified; R19.7 Diarrhea, unspecified; G80.9 Cerebral palsy, unspecified; Z90.49 Acquired absence of other specified parts of digestive tract
CPT/HCPCS: 36415; 80053; 83690; 85025; 99284

== ENCOUNTER 2020-05-30 19:14 | Emergency (ER) | payer OTHER ==
[~2020-05-30] VITALS: Ht 134.6 cm; Wt 35.8 kg
[2020-05-30] MEDS ORDERED: DEXAMETHASONE 4 MG/ML VIAL PO ONE (19:35)
[2020-05-30] MEDS ORDERED: ACETAMINOPHEN 650 MG/20.3 ML UDC PO ONE (19:35)
[2020-05-30] MEDS ORDERED: ACET650S53 PO (20:58)
[2020-05-30] MEDS ORDERED: AMOX75PD47 PO (20:58)
[2020-05-30 21:08] VITALS: BP 103/40
== END 2020-05-30 21:08 | disposition home or self-care (01) ==
LOC: MED 19:14
DX: J03.90 Acute tonsillitis, unspecified (principal); I51.9 Heart disease, unspecified
CPT/HCPCS: 87081; 99283; J1100

== ENCOUNTER 2020-10-16 18:07 | Emergency (ER) | payer OTHER, SELFPAY ==
[~2020-10-16] VITALS: Ht 147.3 cm; Wt 34.0 kg
[~2020-10-16 18:07] MED LIST changes: +ACET650S53 PO; +CIPR500T4 PO; +FLOR250 PO; +METR500T1 PO
[2020-10-16 18:15] VITALS: BP 97/36
--- NOTE | 2020-10-16 18:20 | NUR ---
PT TO AWAIT IN LOBBY
--- NOTE | 2020-10-16 18:45 | NUR ---
PT BROUGHT TO BED AT THIS TIME
--- NOTE | 2020-10-16 18:57 | NUR ---
25 YEAR OLD MALE BROUGHT IN BY PARENTS FOR COMPLAINS OF BLOODY STOOLS X 3 DAYS. PARETNS STATE PT HAS HAD A DECREASED APPETITE AND NAUSEA. PARENTS ALSO STATE PT HAS A SORE THROAT BUT NO LAUGH. PT AOX4, BREATHING EVEN AND UNLABORED, SKIN WARM AND DRY. BED IN LOWEST POSITION, LOCKED, BED RAIL UPX1. PMH - CEREBRAL PALSY, CONGENITAL HEART DISEASE, LIVER CIRRHOSIS, GB REMOVAL, COLON PROBLEMS, HIATAL HERNIA SURGERY ALLERGIES - NKA
--- NOTE | 2020-10-16 19:13 | NUR ---
REPORT GIVEN TO KIM JOYCE, TRANSFER OF CARE AT THIS TIME
--- NOTE | 2020-10-16 20:00 | NUR ---
RESTING COMFORTABLY, NAD NOTED. PARENTS REMAIN AT BEDSIDE.
[2020-10-16 20:01] LABS: BASOPHILS % (AUTO) 1.1 % (0.0-2.0); EOSINOPHILS # (AUTO) 0.1 K/uL (0-0.4); HEMATOCRIT 30.9 % (36-52); LYMPHOCYTES # (AUTO) 0.3 K/uL (2.0-11.5); LYMPHOCYTES % (AUTO) 12.1 % (20.5-51.1); MEAN CORPUSCULAR HEMOGLOBIN 30 pg (27-31); MEAN CORPUSCULAR HGB CONC 32 g/dL (33-37); MEAN CORPUSCULAR VOLUME 93.5 fL (80-94); MONOCYTES # (AUTO) 0.2 K/uL (0.8-1.0); NEUTROPHILS # (AUTO) 2.2 K/uL (1.8-7.7); NEUTROPHILS % (AUTO) 75.8 % (42.2-75.2); PLATELET COUNT (AUTO) 98 K/uL (140-450); RED BLOOD CELL COUNT(AUTO) 3.31 MIL/uL (4.20-6.10); RED CELL DISTRIBUTION WIDTH 17.9 % (11.6-13.7); WHITE BLOOD COUNT (AUTO) 2.8 K/uL (4.8-10.8)
[2020-10-16 20:12] LABS: PROTHROMBIN TIME 10.8 secs (10.8-13.4)
[2020-10-16 20:15] LABS: ALBUMIN 3.7 g/dL (3.4-5.0); CARBON DIOXIDE 26.3 mmol/L (21-32); CREATININE 0.5 mg/dL (0.6-1.3); POTASSIUM 4.3 mmol/L (3.5-5.1); TOTAL BILIRUBIN 1.1 mg/dL (0.0-1.0)
[2020-10-16] MEDS ORDERED: AMOX250P30 PO (21:36)
--- NOTE | 2020-10-16 21:42 | NUR ---
EXAM RESULTS RETURNED, REVIEWED, READY FOR DISCHARGEPatient discharged with v/s stable. Written and verbal after care instructions given and explained. Patient alert, oriented and verbalized understanding of instructions. Wheel Chair Assisted with by parent. All questions addressed prior to discharge. ID band removed. Patient advised to follow up with PMD. Rx of AMOXICILLIN given. Patient educated on indication of medication including possible reaction and side effects. Opportunity to ask questions provided and answered.
== END 2020-10-16 21:42 | disposition home or self-care (01) ==
LOC: MED 18:07
DX: J02.9 Acute pharyngitis, unspecified (principal); D61.818 Other pancytopenia; R74.8 Abnormal levels of other serum enzymes; H61.23 Impacted cerumen, bilateral
CPT/HCPCS: 36415; 80053; 85025; 85610; 85730; 86886; 86900; 86901; 99283

== ENCOUNTER 2020-10-23 10:12 | Day surgery (SDC) | payer OTHER, SELFPAY ==
[~2020-10-23] VITALS: Ht 132.1 cm; Wt 26.8 kg
[~2020-10-23 10:12] MED LIST changes: +AMOX250P30 PO
[2020-10-23] MEDS ORDERED: MIDAZOLAM 5 MG/5 ML VIAL ONE ×2 (14:10→14:36)
[2020-10-23] MEDS ORDERED: fentaNYL citrate 0.05 MG/ML VIAL ONE (14:10)
[2020-10-23] MEDS ORDERED: MIDAZOLAM 2 MG/2 ML VIAL IVP ONE (15:35)
[2020-10-23] MEDS ORDERED: AMMONIA AROMATIC 1 INHL INH ONE (16:54)
== END 2020-10-23 17:30 | disposition home or self-care (01) ==
LOC: MMU 10:12 → MDS 10:12
PROVIDERS: ATTEND Internal Medicine Gastroenterology
DX: K74.60 Unspecified cirrhosis of liver (principal); I85.10 Secondary esophageal varices without bleeding; K92.2 Gastrointestinal hemorrhage, unspecified; Z90.49 Acquired absence of other specified parts of digestive tract
CPT/HCPCS: 43244; 87426; J2250; J3010

== ENCOUNTER 2021-02-05 07:16 | Day surgery (SDC) | payer OTHER, SELFPAY ==
[~2021-02-05 07:16] MED LIST changes: +POTA10TA70 PO; -POTA10TE30 PO
[2021-02-05] MEDS ORDERED: LIDOCAINE MPF 2% 100 MG/5 ML VIAL INJ ONE (09:40)
[2021-02-05] MEDS ORDERED: PHENYLEPHRINE 10 MG/ML VIAL ONE (09:40)
[2021-02-05] MEDS ORDERED: PROPOFOL 200 MG/20 ML VIAL IV ONE (09:40)
[2021-02-05] MEDS ORDERED: KETAMINE 500 MG/5 ML VIAL ONE (09:41)
[2021-02-05] MEDS ORDERED: fentaNYL citrate 0.05 MG/ML VIAL IVP PRN (10:05)
[2021-02-05] MEDS ORDERED: ONDANSETRON 4 MG/2 ML VIAL IVP PRN (10:05)
[2021-02-05] MEDS ORDERED: LACTATED RINGERS 1,000 ML IV SCH (10:05)
[2021-02-05] MEDS ORDERED: METOCLOPRAMIDE 10 MG/2 ML INJ VIAL ONE (10:15)
[2021-02-05] MEDS ORDERED: DEXAMETHASONE 4 MG/ML VIAL ONE (10:15)
== END 2021-02-05 13:02 | disposition home or self-care (01) ==
LOC: MDS 07:16 → MMU 07:17 → MDS 13:02
PROVIDERS: ATTEND Internal Medicine Gastroenterology
DX: I85.00 Esophageal varices without bleeding (principal); K76.6 Portal hypertension; Z79.899 Other long term (current) drug therapy
CPT/HCPCS: 43205; 87426; J1100; J2001; J2370; J2704; J2765; J7030

== ENCOUNTER 2021-12-16 06:14 | Day surgery (SDC) | payer OTHER ==
[~2021-12-16 06:14] MED LIST changes: -CIPR500T4 PO
== END 2021-12-16 10:34 | disposition home or self-care (01) ==
LOC: MDS 06:14 → MMU 06:14 → MDS 10:34
PROVIDERS: ATTEND Internal Medicine Gastroenterology
DX: R18.8 Other ascites (principal); Z90.49 Acquired absence of other specified parts of digestive tract; Z79.899 Other long term (current) drug therapy; Z20.822 Contact with and (suspected) exposure to COVID-19
CPT/HCPCS: 49083; 76705; 87426; Q0092

== ENCOUNTER 2022-03-10 15:43 | Inpatient (IN) | payer OTHER ==
[~2022-03-10] VITALS: Ht 147.3 cm; Wt 33.6 kg
[2022-03-10 16:08] VITALS: BP 92/46
--- NOTE | 2022-03-10 16:16 | NUR ---
COVID, FLU SWABS DONE.
--- NOTE | 2022-03-10 16:20 | NUR ---
PT W/C ASSISTED TO BED 7
--- NOTE | 2022-03-10 16:30 | NUR ---
DR BLAKE AT BEDSIDE.
--- NOTE | 2022-03-10 16:42 | NUR ---
27 Y/O M BIB FATHER C/O COUGH, RUNNY NOSE X 1 WEEK. PMH: CEREBRAL PALSY, HEART PROBLEM
--- NOTE | 2022-03-10 21:30 | NUR ---
RECEIVED IN BED 3 WITH C/O COUGH CONGESTION X 1 WEEK. PT (+)) FOR COVID PMH : CP
[2022-03-10] MEDS ORDERED: ONDANSETRON 4 MG/2 ML VIAL IVP PRN (21:50)
[2022-03-10] MEDS: NACL 0.9% 1,000 ML IV SCH (23:08)
--- NOTE | 2022-03-10 23:53 | NUR ---
PT MOVED TO BED #1
--- NOTE | 2022-03-11 02:39 | NUR ---
MED RECONCILE COMPLETED
--- NOTE | 2022-03-11 05:45 | NUR ---
REPORT GIVEN TO ISIAH BLUM
[2022-03-11] MEDS: LORazepam 2 MG/ML VIAL IVP PRN ×2 (05:58→22:18)
[2022-03-11] MEDS: MORPHINE SULFATE 2 MG/ML SYR IVP PRN (05:59)
--- NOTE | 2022-03-11 06:00 | NUR ---
TO 116 VIA GURNEY ATTACHED TO CM ACCOMPANIED BY RN AND COVER STITCH MACHINE OPERATOR
[2022-03-11 06:10] VITALS: BP 145/73
[2022-03-11 08:47] LABS: HEMATOCRIT 27.2 % (36-52); HEMOGLOBIN 8.9 g/dL (12.0-18.0); MEAN CORPUSCULAR HEMOGLOBIN 28 pg (27-31); MEAN CORPUSCULAR HGB CONC 33 g/dL (33-37); MEAN CORPUSCULAR VOLUME 86.3 fL (80-94); PLATELET COUNT (AUTO) 76 K/uL (140-450); RED BLOOD CELL COUNT(AUTO) 3.15 MIL/uL (4.20-6.10); RED CELL DISTRIBUTION WIDTH 19.8 % (11.6-13.7)
[2022-03-11] MEDS ORDERED: remdesivir COMMUNICATION ORDER 1 EA MISC MC PRN (08:55)
[2022-03-11 09:00] LABS: ALBUMIN 2.2 g/dL (3.4-5.0); ANION GAP 5.6 (8-16); CARBON DIOXIDE 30.6 mmol/L (21-32); CREATININE 0.5 mg/dL (0.6-1.3); MAGNESIUM 1.7 mg/dL (1.8-2.4); POTASSIUM 4.2 mmol/L (3.5-5.1); TOTAL BILIRUBIN 0.8 mg/dL (0.0-1.0)
[2022-03-11] MEDS ORDERED: ENOXAPARIN 40 MG/0.4 ML SYR SUBQ SCH (09:00)
[2022-03-11] MEDS: DEXAMETHASONE 10 MG/ML VIAL IVP SCH (09:56)
[2022-03-11] MEDS ORDERED: remdesivir CLINICAL MONITORING 1 EA MISC MC PRN (10:10)
[2022-03-11] MEDS: NACL 0.9% 1,000 ML IV SCH ×2 (10:59→22:50)
[2022-03-11] MEDS ORDERED: REMDESIVIR. 200 MG in NACL 0.9% 100 ML IV SCH (11:00)
[2022-03-11] MEDS: METOCLOPRAMIDE 10 MG/10 ML SYRP UDC PO SCH ×2 (11:30→16:37)
[2022-03-11 12:00] VITALS: BP 146/70
[2022-03-11] MEDS ORDERED: MAG SULF 2000 MG/WATER PREMIX 50 ML IV PRN (12:45)
--- NOTE | 2022-03-11 13:11 | NUR ---
DC PLANNING MET W/ PTS FATHER WHO REPORTS NO UPDATES FROM LAST VISIT. SW MET WITH PT'S FATHER, TERESITA THOMPSON AT BEDSIDE TO GATHER COLLATERAL INFORMATION. PTS FATHER REPORTS PT RESIDES IN A GROUND FLOOR APT WITH FAMILY ( MOM AND DAD) AT THE ADDRESS LISTED ON FILE. PTS FATHER IDENTIFIED HIMSELF, AND CLAUDE THOMPSON, MOM, EMERGENCY CONTACTS. PT WAS REPORTED TO MEET WITH PCP, DR. NORTH, THREE MONTHS AGO. PT'S FATHER REPORTS PT CURRENTLY DOES NOT TAKE MEDICATION AT THIS TIME AND DENIES BARRIERS IN ACCESS TO MEDICATION IF NEEDED. PT IS REPORTED TO RECEIVE MEDICATION FROM [employer] [facility] [address] IN [place], WHEN NEEDED. PT IS REPORTED TO BE PRIMARILY BEDBOUND AND UTILIZES WC TOLERATED. PT IS TOTAL CARE, WHICH FATHER/MOTHER AID WITH. PTS FATHER IS PT'S FT CAREGIVER PT IS REPORTED TO BE ABLE TO MAKE HIS NEEDS KNOWN WHEN HOME WITH HIS PARENTS. PT'S FATHER REPORTS DC PLAN IS FOR PT TO RETURN HOME , WHEN MEDICALLY STABLE WITH FAMILY PROVIDING TRANSPORTATION. SW INQUIRED ON RESOURCES NEEDED, PT'S FATHER DECLINED. Addendum: 03/11/22 at 1312 by Maribeth SEAMAN Amended: Links added.
[2022-03-11 14:38] LABS: LYMPHOCYTES % (MANUAL) 15 % (20-46)
[2022-03-11 14:39] LABS: EOSINOPHILS % (MANUAL) 7 % (0-4); MONOCYTES % (MANUAL) 13 % (5-12)
[2022-03-11 16:00] VITALS: BP 100/65
--- NOTE | 2022-03-11 16:22 | NUR ---
PATIENT HAS BEEN SCREENED AND CATEGORIZED HIGH NUTRITION RISK. PATIENT WILL BE SEEN WITHIN 1-2 DAYS OF ADMISSION. 03/11/[address]
--- NOTE | 2022-03-11 19:35 | NUR ---
DINNER TRAY AT BEDSIDE UNTOUCHED , PT. ON RESTRAINT , NO ONE FED THE PT .
[2022-03-11 20:00] VITALS: BP 122/63
--- NOTE | 2022-03-11 20:00 | NUR ---
NO NURSE'S NOTES FOUND FOR THE WHOLE AM SHIFT . WILL ENDORSE .
--- NOTE | 2022-03-11 22:00 | NUR ---
ROBERTO , PT IS TRYING TO GET UP , DRY DIAPER , ASKING WHY HE WANTS TO GET UP ? HE SAYS I WANT TO GO HOME , I WANT MILK , WILL PROVIDE MILK . Addendum: 03/12/22 at 0253 by Melissa Belle RN NO RESTRAINT ASSESSMENT FOUND FROM PAT HUERTA
--- NOTE | 2022-03-11 22:10 | NUR ---
AFTER I GAVE MILK TO THE PT HE IS STILL WANTS TO REMOVE HIS O2 CANULLA - WHEN IF OUT O2 CANULLA PT O2 SAT GOING DOWN TO 98 TO 91 , HE IS HARD TO PLEASE AND DOES NOT FOLLOW THE COMMANDS , WILL MEDICATE - TO MAINTAIN THE OXYGEN ADM. - INFORM RT TO HELP TO CONVINCE THE PT TO PUT IT BACK THE CANULLA , PER RT HE WILL VISIT THE PT . FOR CLOSELY WATCH , BP 122/66 , RR18 , FULLY AWAKE , O2 SAT 91 W/O CANULLA , O2 SAT 98 5 WITH CANULLA , BUT PT PERSISTENTLY REMOVE THE CANULLA . CALL LIGHT WITHIN REACH .
--- NOTE | 2022-03-11 22:38 | NUR ---
CALLED BY RN, PT IS SATURATING 95 ON ROOM AIR, THE PTS PULSE OX WAS NOT ATTACHED PROPERLY, PTS BREATH SOUNDS ARE COURSE, AND THE PT IS VERY AGITATED BUT IN NO RESPIRATORY DISTRESS. PT IS OK TO REMAIN ON ROOM AIR AT THIS TIME, NASAL CANNULA WILL REMAIN AT BEDSIDE IF NEEDED.
[2022-03-12] VITALS: BP 112/66
--- NOTE | 2022-03-12 | NUR ---
NO SHIFT ASSESSMENT FOUND FOR THE WHOLE ENTIRE AM SHIFT - CHARGE NURSE INFORMED .
--- NOTE | 2022-03-12 00:31 | NUR ---
BP RE CHECK 112/66 , HR 76 , RR 18 , O2 SAT 95 % , RA , ON HOOK ON O2 SAT MONITOR , CALL LIGHT WITHIN REACH , WILL CONT. TO MONITOR .
[2022-03-12] MEDS ORDERED: cefTRIAXone 1,000 MG VIAL ONE (00:34)
[2022-03-12] MEDS ORDERED: AZITHROMYCIN 500 MG INJ VIAL IV ONE (01:44)
--- NOTE | 2022-03-12 02:00 | NUR ---
sleeping , chest rise and fall equally , will cont. to monitor
[2022-03-12] MEDS: AZITHROMYCIN 500 MG in DEXTROSE 5% 250 ML IV SCH (02:05)
[2022-03-12 04:00] VITALS: BP 111/63
--- NOTE | 2022-03-12 04:00 | NUR ---
rounds , no s/sx of acute distress noted on tele monitor , will cont. to monitor
--- NOTE | 2022-03-12 06:00 | NUR ---
rounds , no s/sx of acute distress noted , wayching tv , will cont. to monitor , o2 sat 96 %
--- NOTE | 2022-03-12 06:35 | NUR ---
observe behavior - pt is more cooperative and behave when he is not on restraint - off the restraint , on ra , 01 sat 96 % - will endorse to cont. the reactio of the pt when he is off the restraint .
--- NOTE | 2022-03-12 07:32 | NUR ---
endorsed pt for cont. of care . o2 sat 96% , on tele monitor , off restraint , on room air .
[2022-03-12 07:53] LABS: ALBUMIN 2.2 g/dL (3.4-5.0); ANION GAP 9.7 (8-16); CARBON DIOXIDE 28.2 mmol/L (21-32); CREATININE 0.5 mg/dL (0.6-1.3); POTASSIUM 3.9 mmol/L (3.5-5.1); TOTAL BILIRUBIN 0.5 mg/dL (0.0-1.0)
[2022-03-12] MEDS: METOCLOPRAMIDE 10 MG/10 ML SYRP UDC PO SCH ×3 (07:53→16:30)
[2022-03-12 08:00] VITALS: BP 109/71
[2022-03-12] MEDS: DEXAMETHASONE 10 MG/ML VIAL IVP SCH (09:00)
[2022-03-12] MEDS: FUROSEMIDE 40 MG TAB PO SCH (09:00)
[2022-03-12] MEDS: SPIRONOLACTONE 25 MG TAB PO SCH (09:00)
[2022-03-12] MEDS: REMDESIVIR. 100 MG in NACL 0.9% 100 ML IV SCH (11:06)
[2022-03-12] MEDS: NACL 0.9% 1,000 ML IV SCH ×2 (11:20→23:50)
[2022-03-12 12:00] VITALS: BP 122/80
[2022-03-12] MEDS: LORazepam 2 MG/ML VIAL IVP PRN ×2 (12:24→18:58)
--- NOTE | 2022-03-12 13:33 | NUR ---
03/12/22 RD INITIAL ASSESSMENT COMPLETED PLEASE REFER TO NUTRITION ASSESSMENT UNDER CARE ACTIVITY FOR ESTIMATED NUTRITIONAL NEEDS. 1. CONTINUE PUREE DIET WITH HEALTHSHAKES TID TOLERATED 2. RECOMMEND ENSURE BID FOR NUTRITION SUPPORT -WILL PROVIDE 700KCAL AND 40GM PROTEIN DAILY 3. MONITOR GI SYMPTOMS 4. RD TO FOLLOW-UP 7 DAYS, LOW RISK VICKY JEFFREY RD
[2022-03-12 16:30] VITALS: BP 105/68
--- NOTE | 2022-03-12 19:40 | NUR ---
RECEIVED ENDORSEMENT FROM DAY SHIFT NURSE FOR CONTINUITY OF CARE. PT REMOVES O2 CANULA FROM NOSTRILS REPEATEDLY. NURSE EXPLAINED TO PT, PT STILL REMOVES O2 TUBING. IV SITE ON RIGHT FOREARM INTACT AND PATENT. CONTINUE TO MONITOR.
[2022-03-12 20:00] VITALS: BP 125/68
--- NOTE | 2022-03-12 20:00 | NUR ---
PLACE O2 CANULA INTO THE NOSTRILS, PT REMOVES.
--- NOTE | 2022-03-12 22:00 | NUR ---
PT IS NOT ON O2 INHALATION. O2 SAT 95% ON ROOM AIR.
--- NOTE | 2022-03-12 23:30 | NUR ---
PT REMOVES O2 TUBING CANULA. PT STATED HE DOES NOT LIKE IT. O2 SAT 94% ON ROOM AIR.
[2022-03-13] VITALS: BP 125/71
--- NOTE | 2022-03-13 00:15 | NUR ---
PT ASLEEP, O2 SAT DROP TO 88%. PLACE NASAL CANULA, O2 SAT INCREASE TO 98%.
[2022-03-13] MEDS: AZITHROMYCIN 500 MG in DEXTROSE 5% 250 ML IV SCH (01:30)
--- NOTE | 2022-03-13 02:30 | NUR ---
PT AWAKE, O2 TUBING REMOVED BY PT, O2 SAT 92% ON ROOM AIR.
[2022-03-13 04:00] VITALS: BP 123/65
--- NOTE | 2022-03-13 04:30 | NUR ---
PT O2 SAT FLUCTUATES 90-94% WHEN PT MOVES AND AGITATED, AT TIMES DROP TO 88-89%. EDUCATE PT, PT IS STILL REFUSES. MITTENS APPLY AND SOFT RESTRAIN NEEDED WHEN O2 SAT DROP TO 84-89%.
[2022-03-13] MEDS: METOCLOPRAMIDE 10 MG/10 ML SYRP UDC PO SCH ×3 (07:20→16:54)
--- NOTE | 2022-03-13 07:44 | NUR ---
ENDORSED TO DAY SHIFT NURSE TO MONITOR O2 INHALATION. ALL SAFETY MEASURES ARE IN PLACE. PT IS ON STABLE CONDITION.
--- NOTE | 2022-03-13 07:45 | NUR ---
GOT REPORT FROM THE NIGHT NURSE, PT IN BED, NO SOB [id number]
[2022-03-13 08:00] VITALS: BP 120/58
[2022-03-13 08:21] LABS: ANION GAP 9.5 (8-16); CARBON DIOXIDE 29.1 mmol/L (21-32); CREATININE 0.5 mg/dL (0.6-1.3); POTASSIUM 3.6 mmol/L (3.5-5.1); TOTAL BILIRUBIN 0.3 mg/dL (0.0-1.0)
[2022-03-13] MEDS: FUROSEMIDE 40 MG TAB PO SCH (09:36)
[2022-03-13] MEDS: SPIRONOLACTONE 25 MG TAB PO SCH (09:36)
[2022-03-13] MEDS: DEXAMETHASONE 10 MG/ML VIAL IVP SCH (09:36)
[2022-03-13] MEDS: REMDESIVIR. 100 MG in NACL 0.9% 100 ML IV SCH (11:26)
[2022-03-13 12:00] VITALS: BP 115/60
[2022-03-13 16:00] VITALS: BP 112/63
[2022-03-13] MEDS: MORPHINE SULFATE 2 MG/ML SYR IVP PRN (18:00)
[2022-03-13 20:00] VITALS: BP 118/58
--- NOTE | 2022-03-13 21:00 | NUR ---
PT IS AWAKE AND VERBALLY RESPONSIVE. PT DOES NOT TOLERATE O2 TUBING CANULA. PT REFUSE TO USE AND REMOVE O2 TUBING. O2 SAT 93% ON ROOM AIR.
--- NOTE | 2022-03-13 22:00 | NUR ---
O2 SAT 94% ROOM AIR.
--- NOTE | 2022-03-13 23:30 | NUR ---
RESTRAIN IS NOT RENEWED AND IS DC. PT IS COOPERATIVE, DOES NOT PULL OUT IV LINE. HOWEVER, PT STILL DOES NOT TOLERATE O2 TUBING NASAL CANULA. O2 SAT ON ROOM AIR RANGING 91-95%. SKIN COLOR WITHIN THE NORMAL.
[2022-03-14] VITALS: BP 121/60
[2022-03-14] MEDS: AZITHROMYCIN 500 MG in DEXTROSE 5% 250 ML IV SCH (01:18)
--- NOTE | 2022-03-14 03:20 | NUR ---
PT HAS LARGE SOFT BM. PT IS COMPLY WITH INSTRUCTION.
[2022-03-14 04:00] VITALS: BP 103/52
--- NOTE | 2022-03-14 04:15 | NUR ---
PT IS STABLE, O2 TUBING IS OFF FROM PT NOSTRILS. SKIN COLOR WITHIN THE NORMAL. O2 SAT 95%, NO SOB OR DISTRESS. PT COOPERATIVE AND FOLLOW INSTRUCTION.
--- NOTE | 2022-03-14 07:25 | NUR ---
PT IS ON STABLE CONDITION. ALL SAFETY MEASURES ARE IN PLACE. ENDORSED TO DAY SHIFT NURSE FOR CONTINUITY OF CARE.
[2022-03-14] MEDS: METOCLOPRAMIDE 10 MG/10 ML SYRP UDC PO SCH ×2 (07:30→11:30)
--- NOTE | 2022-03-14 07:36 | NUR ---
GOT REPORT FROM THE NIGHT NURSE, PT AWAKE SMILING DISCUSSED POC.[id number]
--- NOTE | 2022-03-14 07:53 | NUR ---
GOT REPORT PT SLEEPING AWAKE WHILE I AM TAKING O2 SATURATION .[id number] MY PREVIOUS NOT WAS NOT FOR THIS PATIENT.
[2022-03-14 08:00] VITALS: BP 106/44
--- NOTE | 2022-03-14 09:22 | NUR ---
POTENTIAL COVID RELATED SKIN FAILURE DUE TO TISSUE LESS TOLERATE TO PRESSURE, SHEARING AND POSSIBLE ASSOCIATED WITH MICROVASCULAR INJURY AND HYPOXIA -POSITIONING: TURN AND REPOSITION PATIENT Q 2H OR SOONER USE PILLOWS TO KEEP BONY PROMINENCES FROM DIRECT CONTACT WITH SURFACES USE REPOSITIONING WEDGES TO PROVIDE 30-DEGREE ANGLE FOR SIDE LYING POSITIONS OFFLOADING OR FOAM DRESSING TO ALL TUBING TO PREVENT MEDICAL DEVICES RELATED PRESSURE INJURY -RE-EVALUATING AND MANAGING INCONTINENCE MONITOR SKIN CONDITION DURING POSITION CHANGE DO NOT MASSAGE REDNESS, BONY PROMINENCES, DO NOT USE DONUT-TYPE DEVICES FREQUENT LONG-CARE AND PROVIDE BARRIER CREAMS PRN IF SOILING MOISTURE CONTROL BY OFFER BED ARGUELLES/URINAL /ABSORBENT PAD TO WICK AND HOLD MOISTURE. KEEP SKIN DRY AND PROTECT FROM FRICTION -MANAGE FRICTION/SHEAR/MOBILITY KEEP HOB AT THE LOWEST LEVEL OF ELEVATION NO MORE THAN 30 DEGREE UNLESS OTHERWISE CONTRAINDICATED USE LIFT SHEET OR TRANSFER DEVICE TO MOVE PATIENT AND PREVENT LATERAL SHEER. PROTECT HEELS, ELBOWS BONY PROMENANCES WITH SKIN BERRIES OR FOAM DRESSING IF EXPOSED TO FRICTION OFFLOAD BILATERAL HEELS BY PLACING PILLOWS UNDER CALVES AT ALL TIMES, UNLESS OTHERWISE CONTRAINDICATED -PRESSURE REDISTRIBUTION SURFACE THERAPY SUREKHA ISOFLEX MATTRESS -NUTRITION: PLEASE FOLLOW RD RECOMMENDATIONS AND OFFER NUTRITION SUPPLEMENTS IF ORDERED. PLEASE CONTACT WOUND CARE NURSE FOR ANY QUESTION AND CHANGE OF WOUND CONDITION.
[2022-03-14] MEDS: SPIRONOLACTONE 25 MG TAB PO SCH (09:30)
[2022-03-14] MEDS: FUROSEMIDE 40 MG TAB PO SCH (09:30)
[2022-03-14] MEDS: DEXAMETHASONE 10 MG/ML VIAL IVP SCH (09:30)
[2022-03-14 10:00] VITALS: BP 106/44
[2022-03-14 10:41] LABS: ANION GAP 10.8 (8-16); CARBON DIOXIDE 28.4 mmol/L (21-32); CREATININE 0.5 mg/dL (0.6-1.3); POTASSIUM 4.2 mmol/L (3.5-5.1); TOTAL BILIRUBIN 0.4 mg/dL (0.0-1.0)
[2022-03-14] MEDS: REMDESIVIR. 100 MG in NACL 0.9% 100 ML IV SCH (11:00)
[2022-03-14 13:02] VITALS: BP 106/44
--- NOTE | 2022-03-14 16:07 | NUR ---
PT DISCHARGED HOME, DISCHARGE INSTRUCTION IS GIVEN, FATHER WHEELED OUT PT IN HIS OWN W/C PT SO HAPPY AND LEFT THE UNIT WITHOUT ANY DISCOMFORT.[id number]
== END 2022-03-14 16:15 | disposition home or self-care (01) | DRG 137 ==
LOC: MED 15:43 → OBSVTOIN 21:57 → MTU 21:57
PROVIDERS: ADMIT Internal Medicine; ATTEND Internal Medicine
PROC: XW033E5 Introduction of Remdesivir Anti-infective into Peripheral Vein, Percutaneous Approach, New Technology Group 5 (ICD-10-PCS; principal; 2022-03-11)
DX: U07.1 COVID-19 (principal); J96.01 Acute respiratory failure with hypoxia; J12.82 Pneumonia due to coronavirus disease 2019; D61.818 Other pancytopenia; D69.6 Thrombocytopenia, unspecified; K76.6 Portal hypertension; J15.9 Unspecified bacterial pneumonia; R65.10 Systemic inflammatory response syndrome (SIRS) of non-infectious origin without acute organ dysfunction; G80.9 Cerebral palsy, unspecified; D64.9 Anemia, unspecified; K46.9 Unspecified abdominal hernia without obstruction or gangrene; K74.60 Unspecified cirrhosis of liver; I35.1 Nonrheumatic aortic (valve) insufficiency; Z90.49 Acquired absence of other specified parts of digestive tract; Z83.3 Family history of diabetes mellitus; Z82.3 Family history of stroke; Z82.49 Family history of ischemic heart disease and other diseases of the circulatory system
CPT/HCPCS: 36415; 71045; 74021; 80053; 83735; 85025; 87081; 96374; 96375; 99285; J0456; J0696; J1100; J2060; J2270; J2405; J3475; J7060; J8597; Q0092

== ENCOUNTER 2022-05-12 14:01 | Emergency (ER) | payer OTHER ==
[~2022-05-12] VITALS: Ht 147.3 cm; Wt 37.2 kg
[~2022-05-12 14:01] MED LIST changes: -AMOX250P30 PO; -FURO40TA9 PO; -METR500T1 PO
[2022-05-12 14:07] VITALS: BP 105/41
--- NOTE | 2022-05-12 15:00 | NUR ---
Lab at bedside to collect blood specimen
[2022-05-12 15:13] LABS: BASOPHILS % (AUTO) 0.8 % (0.0-2.0); EOSINOPHILS # (AUTO) 0.2 K/uL (0-0.4); EOSINOPHILS % (AUTO) 6.2 % (0.0-4.0); LYMPHOCYTES # (AUTO) 0.1 K/uL (2.0-11.5); LYMPHOCYTES % (AUTO) 3.7 % (20.5-51.1); MEAN CORPUSCULAR HEMOGLOBIN 24 pg (27-31); MEAN CORPUSCULAR HGB CONC 32 g/dL (33-37); MEAN CORPUSCULAR VOLUME 73.6 fL (80-94); MONOCYTES # (AUTO) 0.2 K/uL (0.8-1.0); MONOCYTES % (AUTO) 7.8 % (1.7-9.3); NEUTROPHILS # (AUTO) 2.6 K/uL (1.8-7.7); NEUTROPHILS % (AUTO) 81.5 % (42.2-75.2); PLATELET COUNT (AUTO) 79 K/uL (140-450); RED BLOOD CELL COUNT(AUTO) 2.55 MIL/uL (4.20-6.10); WHITE BLOOD COUNT (AUTO) 3.2 K/uL (4.8-10.8)
[2022-05-12 15:19] LABS: HEMATOCRIT 18.8 % (36-52); HEMOGLOBIN 6.1 g/dL (12.0-18.0)
[2022-05-12 15:39] LABS: PROTHROMBIN TIME 11.7 secs (10.8-13.4)
[2022-05-12 15:43] LABS: ALBUMIN 3.2 g/dL (3.4-5.0); CARBON DIOXIDE 29.3 mmol/L (21-32); CREATININE 0.4 mg/dL (0.6-1.3); POTASSIUM 4.3 mmol/L (3.5-5.1); TOTAL BILIRUBIN 0.9 mg/dL (0.0-1.0)
--- NOTE | 2022-05-12 15:45 | NUR ---
Pt provided with pericare. 1 large soft BM
--- NOTE | 2022-05-12 16:50 | NUR ---
Urine specimen walked to lab
[2022-05-12 17:27] LABS: APPEARANCE,URINE CLEAR (CLEAR); BILIRUBIN,URINE NEGATIVE (NEGATIVE); BLOOD, URINE NEGATIVE (NEGATIVE); COLOR,URINE YELLOW (YELLOW); LEUKOCYTE ESTERASE ,URINE NEGATIVE (NEGATIVE); NITRITE, URINE NEGATIVE (NEGATIVE); UGLUCOSE NEGATIVE (NEGATIVE)
--- NOTE | 2022-05-12 17:28 | NUR ---
Per Amir in blood bank, blood is ready and to come retrieve it in 15 mins
--- NOTE | 2022-05-12 18:05 | NUR ---
Blood verified with Laisha JOYCE Consent placed in chart
--- NOTE | 2022-05-12 18:05 | NUR ---
Father at bedside during start of blood infusion.
--- NOTE | 2022-05-12 18:30 | NUR ---
No ASE of reaction from infusion. Afebrile and denies any pain at this time
--- NOTE | 2022-05-12 19:27 | NUR ---
Pt report given to ISIAH Shearer. Transfer of care at this time.
--- NOTE | 2022-05-12 20:27 | NUR ---
PENDING DISPO. PATIENTS FATHER LEFT AND WILL RETURN.
[2022-05-12 21:46] VITALS: BP 115/47
--- NOTE | 2022-05-12 21:46 | NUR ---
Patient discharged with v/s stable. Written and verbal after care instructions given and explained. Patient verbalized understanding. Ambulatory with steady gait. All questions addressed prior to discharge. Advised to follow up with PMD.
== END 2022-05-12 21:46 | disposition home or self-care (01) ==
LOC: MED 14:01
DX: D64.9 Anemia, unspecified (principal); Z20.822 Contact with and (suspected) exposure to COVID-19; J40 Bronchitis, not specified as acute or chronic; Z90.49 Acquired absence of other specified parts of digestive tract; Z79.899 Other long term (current) drug therapy; Z98.890 Other specified postprocedural states
CPT/HCPCS: 36415; 71045; 80053; 81003; 82550; 82553; 83605; 83880; 84484; 85025; 85610; 85730; 86886; 86900; 86901; 86920; 87040; 87086; 87426; 87804; 93005; 99291; 99292; P9016; Q0092

== ENCOUNTER 2022-09-20 15:02 | Emergency (ER) | payer OTHER ==
[~2022-09-20] VITALS: Ht 149.9 cm; Wt 35.8 kg
[2022-09-20 17:01] VITALS: BP 107/47; PULSE 88; RESP 18; TEMP 99.5; O2SAT 98
[2022-09-20 17:18] LABS: BASOPHILS % (AUTO) 0.7 % (0.0-2.0); EOSINOPHILS # (AUTO) 0.5 K/uL (0-0.4); EOSINOPHILS % (AUTO) 7.3 % (0.0-4.0); HEMATOCRIT 26.1 % (36-52); HEMOGLOBIN 8.3 g/dL (12.0-18.0); LYMPHOCYTES # (AUTO) 0.3 K/uL (2.0-11.5); LYMPHOCYTES % (AUTO) 4.3 % (20.5-51.1); MEAN CORPUSCULAR HEMOGLOBIN 24 pg (27-31); MEAN CORPUSCULAR HGB CONC 32 g/dL (33-37); MEAN CORPUSCULAR VOLUME 76.3 fL (80-94); MONOCYTES # (AUTO) 0.3 K/uL (0.8-1.0); MONOCYTES % (AUTO) 5.1 % (1.7-9.3); NEUTROPHILS # (AUTO) 5.6 K/uL (1.8-7.7); NEUTROPHILS % (AUTO) 82.6 % (42.2-75.2); PLATELET COUNT (AUTO) 62 K/uL (140-450); RED BLOOD CELL COUNT(AUTO) 3.42 MIL/uL (4.20-6.10); RED CELL DISTRIBUTION WIDTH 22.6 % (11.6-13.7); WHITE BLOOD COUNT (AUTO) 6.8 K/uL (4.8-10.8)
[2022-09-20 17:33] LABS: ALBUMIN 3.3 g/dL (3.4-5.0); ANION GAP 14.8 (8-16); CARBON DIOXIDE 25.1 mmol/L (21-32); CREATININE 0.6 mg/dL (0.6-1.3); POTASSIUM 3.9 mmol/L (3.5-5.1); TOTAL BILIRUBIN 1.5 mg/dL (0.0-1.0)
--- NOTE | 2022-09-20 18:18 | NUR ---
FAMILY WITH PATIENT, ASSISTED PT TO JALIL. UPSET WITH ER VISIT BUT CONSOLABLE BY FAMILY
[2022-09-20] MEDS ORDERED: ONDANSETRON 4 MG/2 ML VIAL IVP ONE (18:40)
[2022-09-20] MEDS ORDERED: MORPHINE SULFATE 2 MG/ML SYR IVP ONE (18:40)
[2022-09-20] MEDS ORDERED: NACL 0.9% 1,000 ML IV ONE (18:40)
[2022-09-20] MEDS ORDERED: PANTOPRAZOLE 40 MG INJ VIAL IVP ONE (18:45)
--- NOTE | 2022-09-20 19:08 | NUR ---
father Barrington cell [phone]
[2022-09-20] MEDS ORDERED: ONDANSETRON 4 MG/2 ML VIAL ONE (19:46)
[2022-09-20] MEDS ORDERED: MORPHINE SULFATE 2 MG/ML SYR ONE (19:46)
--- NOTE | 2022-09-20 20:00 | NUR ---
PT BIB FATHER WITH C/O OF BLOOD IN STOOL. PT REPORTS ABD PAIN, UNABLE TO VERBALIZE SALE OF PAIN DUE TO CEREBRAL PALSY. GUAC + HX: CHRONIC ANEMIA, CEREBRAL PALSY NKD FATHER AT BEDSIDE Addendum: 09/20/22 at 2218 by [id number] VERBALIZE SCALE OF PAIN*
[2022-09-20] MEDS ORDERED: AZITHROMYCIN 1,000 MG in DEXTROSE 5% 500 ML IV ONE (20:40)
[2022-09-20] MEDS ORDERED: OMEP20EC11 PO (20:43)
[2022-09-20] MEDS ORDERED: AZIT250T11 PO (20:43)
[2022-09-20] MEDS ORDERED: ONDA-188 PO (20:43)
--- NOTE | 2022-09-20 21:15 | NUR ---
# 8 FR Urinary catheter inserted utilizing sterile technique. Immediate return of 15 ml sedimentous, hazy and odorous urine noted. Urine sample collected and sent to lab. Pt tolerated procedure well. Approximately 400 ml of urine excreted. JOEL Turner made aware.
[2022-09-20] MEDS ORDERED: AZTREONAM 1,000 MG VIAL ONE (21:19)
[2022-09-20] MEDS ORDERED: AZITHROMYCIN 500 MG INJ VIAL IV ONE (21:20)
[2022-09-20 21:26] LABS: APPEARANCE,URINE CLEAR (CLEAR); BILIRUBIN,URINE NEGATIVE (NEGATIVE); BLOOD, URINE TRACE-I (NEGATIVE); COLOR,URINE YELLOW (YELLOW); LEUKOCYTE ESTERASE ,URINE NEGATIVE (NEGATIVE); NITRITE, URINE NEGATIVE (NEGATIVE); UGLUCOSE NEGATIVE (NEGATIVE)
[2022-09-20 21:29] LABS: RBC,URINE 0-5 /HPF (0-5)
--- NOTE | 2022-09-20 22:27 | NUR ---
PATIENT D/C PENDING COMPLETION OF ABX ADMINISTRATION.
--- NOTE | 2022-09-20 23:00 | NUR ---
SPOKE WITH FATHER OVER PHONE, ADVISED THAT PT IS READY TO BE PICKED UP.
--- NOTE | 2022-09-20 23:08 | NUR ---
Pt report given to ISIAH ANAND. Transfer of care at this time.
--- NOTE | 2022-09-20 23:40 | NUR ---
FATHER AT BEDSIDE
--- NOTE | 2022-09-20 23:44 | NUR ---
IV removed, catheter intact and site benign. Applied folded 4x4 gauze and tape to stop bleeding.
[2022-09-20 23:48] VITALS: BP 97/40; PULSE 75; RESP 16; TEMP 98; O2SAT 97
--- NOTE | 2022-09-20 23:48 | NUR ---
Patient discharged. Written and verbal after care instructions given and explained. Wheel Chair Assisted with parent. All questions addressed prior to discharge. ID band removed. Parent advised to follow up with PMD. Rx of Azithromycin, Prilosec, and Zofran ODT given. Patient and parent educated on indication of medication including possible reaction and side effects. Opportunity to ask questions provided and answered.
== END 2022-09-20 23:48 | disposition home or self-care (01) ==
LOC: MED 15:02
DX: K52.9 Noninfective gastroenteritis and colitis, unspecified (principal); D64.9 Anemia, unspecified; R33.9 Retention of urine, unspecified; N31.9 Neuromuscular dysfunction of bladder, unspecified; I50.9 Heart failure, unspecified; Z90.49 Acquired absence of other specified parts of digestive tract; Z79.899 Other long term (current) drug therapy; Z98.890 Other specified postprocedural states
CPT/HCPCS: 36415; 74176; 80053; 81001; 85025; 96361; 96365; 96375; 99285; C9113; J0456; J2270; J2405; J7030; J3490

== ENCOUNTER 2022-10-13 19:28 | Inpatient (IN) | payer OTHER ==
[~2022-10-13] VITALS: Ht 157.5 cm; Wt 37.6 kg
[~2022-10-13 19:28] MED LIST changes: +AZIT250T11 PO; +OMEP20EC11 PO; +ONDA-188 PO
[2022-10-13 19:30] VITALS: BP 111/46; PULSE 100; RESP 18; TEMP 99.8; O2SAT 97
--- NOTE | 2022-10-13 19:50 | NUR ---
PT TAKEN TO BED 9
[2022-10-13 20:29] LABS: BASOPHILS % (AUTO) 0.6 % (0.0-2.0); EOSINOPHILS # (AUTO) 0.2 K/uL (0-0.4); EOSINOPHILS % (AUTO) 3.4 % (0.0-4.0); HEMATOCRIT 23.2 % (36-52); HEMOGLOBIN 7.5 g/dL (12.0-18.0); LYMPHOCYTES # (AUTO) 0.5 K/uL (2.0-11.5); LYMPHOCYTES % (AUTO) 7.8 % (20.5-51.1); MEAN CORPUSCULAR HEMOGLOBIN 26 pg (27-31); MEAN CORPUSCULAR HGB CONC 32 g/dL (33-37); MEAN CORPUSCULAR VOLUME 79.2 fL (80-94); MONOCYTES # (AUTO) 0.6 K/uL (0.8-1.0); MONOCYTES % (AUTO) 8.7 % (1.7-9.3); NEUTROPHILS # (AUTO) 5.1 K/uL (1.8-7.7); NEUTROPHILS % (AUTO) 79.5 % (42.2-75.2); PLATELET COUNT (AUTO) 99 K/uL (140-450); RED BLOOD CELL COUNT(AUTO) 2.93 MIL/uL (4.20-6.10); RED CELL DISTRIBUTION WIDTH 23.8 % (11.6-13.7); WHITE BLOOD COUNT (AUTO) 6.5 K/uL (4.8-10.8)
[2022-10-13 20:38] LABS: ANION GAP 10.2 (8-16); CARBON DIOXIDE 23.7 mmol/L (21-32); CREATININE 0.7 mg/dL (0.6-1.3)
[2022-10-13 20:59] LABS: POTASSIUM 2.9 mmol/L (3.5-5.1)
[2022-10-13] MEDS ORDERED: KCL 20 MEQ IN 100 mL PREMIX 200 ML IV ONE (21:00)
--- NOTE | 2022-10-13 21:13 | NUR ---
PT TO CT VIA JALIL
--- NOTE | 2022-10-13 21:45 | NUR ---
Randall JOYCE provided pericare for patient-pt able to tolerate well. Rectal exam performed by Dr. Sanders with Randall JOYCE at bedside for entire examination. Patient assisted to position of comfort after examination.
--- NOTE | 2022-10-13 23:47 | NUR ---
Patient appears to be resting comfortably in bed. Respirations even and unlabored. No s/s of distress at this time. Safety measures are in place and attached to the night monitor.
--- NOTE | 2022-10-14 00:35 | NUR ---
spoke with father Barrington to come back to the ER d/t admiting pt.
[2022-10-14] MEDS ORDERED: HYDROmorphone PFS 2 MG/ML SYR IVP PRN ×2 (01:05→01:15)
[2022-10-14] MEDS ORDERED: MORPHINE SULFATE 2 MG/ML SYR IVP PRN ×2 (01:05→01:15)
[2022-10-14] MEDS ORDERED: HYDROcodone/APAP 5/325 MG 1 TAB TAB PO PRN ×2 (01:05→01:15)
[2022-10-14] MEDS ORDERED: ONDANSETRON 4 MG/2 ML VIAL IVP PRN (01:05)
[2022-10-14] MEDS ORDERED: ACETAMINOPHEN 325 MG TAB PO PRN (01:05)
[2022-10-14] MEDS ORDERED: LORazepam 2 MG/ML VIAL IVP PRN ×2 (01:05→01:15)
[2022-10-14] MEDS ORDERED: NACL 0.9% 1,000 ML IV SCH (01:05)
[2022-10-14] MEDS: NACL 0.9% 1,000 ML IV SCH ×2 (01:15→15:33)
[2022-10-14 01:41] LABS: PROTHROMBIN TIME 13.4 secs (10.8-13.4)
--- NOTE | 2022-10-14 01:43 | NUR ---
CALLED PT FATHER TERESITA, PER FATHER WILL BE HERE IN 10MINS.
--- NOTE | 2022-10-14 01:45 | NUR ---
Patient will be admitted to care of Dr. Knight. Admited to Med/Surg. Will go to room 120B. Belongings list completed. Report to Cayden JOYCE.
--- NOTE | 2022-10-14 02:14 | NUR ---
PT TAKEN TO MST
[2022-10-14 02:23] VITALS: PULSE 99; RESP 18; O2SAT 95
--- NOTE | 2022-10-14 02:23 | NUR ---
RECEIVED PATIENT FROM ER NURSE VIA JALIL FOR CONTINUITY OF CARE.PATIENT IS AOX1 WITH CEREBRAL PALSY. CAME IN WITH COMPLAINT OF ABDOMINAL PAIN.PIV INTACT AND PATENT. WILL CONTINUE TO MONITOR
--- NOTE | 2022-10-14 03:15 | NUR ---
STARTED TRANSFUSING 1 PRBC FOR HEMOGLOBIN OF 7.5 TOLERATING WELL. NO ADVERSE REACTIONS NOTED. WILL CONTINUE TO MONITOR
[2022-10-14 04:00] VITALS: BP 110/48; PULSE 99; RESP 18; TEMP 99.3; O2SAT 95
[2022-10-14] MEDS ORDERED: PIPERACILLIN/TAZOBACTAM 3.375 GM in DEXTROSE 5% 50 ML IV SCH ×4 (05:00)
[2022-10-14] MEDS ORDERED: PIPERACILLIN/TAZOBACTAM 3.375 GM VIAL IV ONE (05:42)
--- NOTE | 2022-10-14 06:00 | NUR ---
BLOOD TRANSFUSION OF 1 PRBC DONE,TOLERATED WELL, NO ADVERSE REACTION NOTED
[2022-10-14 08:00] VITALS: BP 107/44; PULSE 99; RESP 18; TEMP 97.4; O2SAT 98
--- NOTE | 2022-10-14 08:52 | NUR ---
PATIENT HAS BEEN SCREENED AND CATEGORIZED HIGH NUTRITION RISK. PATIENT WILL BE SEEN WITHIN 1-2 DAYS OF ADMISSION. 10/15/22-10/16/22 REVIEWED BY [address]Y JEFF[address] RD
[2022-10-14] MEDS ORDERED: PANTOPRAZOLE 40 MG INJ VIAL IVP SCH (09:00)
[2022-10-14] MEDS: PANTOPRAZOLE 40 MG INJ VIAL IVP SCH (09:55)
[2022-10-14 10:13] LABS: EOSINOPHILS % (AUTO) 0.5 % (0.0-4.0); HEMATOCRIT 33.5 % (36-52); LYMPHOCYTES # (AUTO) 0.4 K/uL (2.0-11.5); LYMPHOCYTES % (AUTO) 5.8 % (20.5-51.1); MEAN CORPUSCULAR HEMOGLOBIN 27 pg (27-31); MEAN CORPUSCULAR HGB CONC 33 g/dL (33-37); MEAN CORPUSCULAR VOLUME 81.9 fL (80-94); MONOCYTES # (AUTO) 0.5 K/uL (0.8-1.0); MONOCYTES % (AUTO) 6.2 % (1.7-9.3); NEUTROPHILS # (AUTO) 6.7 K/uL (1.8-7.7); NEUTROPHILS % (AUTO) 87.5 % (42.2-75.2); PLATELET COUNT (AUTO) 86 K/uL (140-450); RED BLOOD CELL COUNT(AUTO) 4.09 MIL/uL (4.20-6.10); RED CELL DISTRIBUTION WIDTH 22.7 % (11.6-13.7); WHITE BLOOD COUNT (AUTO) 7.7 K/uL (4.8-10.8)
[2022-10-14 10:35] LABS: ALBUMIN 2.7 g/dL (3.4-5.0); ANION GAP 11.7 (8-16); CARBON DIOXIDE 22.3 mmol/L (21-32); CREATININE 0.6 mg/dL (0.6-1.3); TOTAL BILIRUBIN 2.5 mg/dL (0.0-1.0)
[2022-10-14] MEDS ORDERED: POTASSIUM CHL 40 MEQ/ D5-1/2NS 1,000 ML IV SCH (13:15)
[2022-10-14] MEDS ORDERED: KCL 20 MEQ IN 100 mL PREMIX 200 ML IV SCH (13:45)
--- NOTE | 2022-10-14 14:05 | NUR ---
10/14/22 RD INITIAL ASSESSMENT COMPLETED PLEASE REFER TO NUTRITION ASSESSMENT UNDER CARE ACTIVITY FOR ESTIMATED NUTRITIONAL NEEDS. 1. CONTINUE NPO DIET TOLERATED. ONCE MEDICALLY APPROPRIATE ADVANCE TO CLEAR LIQUID DIET TOLERATED. 2. RD WILL CONTINUE TO MONITOR PO INTAKE, GI ISSUES, WEIGHT/BMI, AND NUTRITION RELATED LAB VALUES. 3. RD ENCOURAGES PATIENT TO FOLLOW TIPS FOR NUTRITION EDUCATION ON LIVER CIRRHOSIS ONCE HE LEAVES THE HOSPITAL. 4. RD TO FOLLOW-UP 2-3 DAYS, HIGH RISK JOHANA MESSER RD
[2022-10-14] MEDS ORDERED: VANCOMYCIN PER PHARMACY MC PRN (15:30)
[2022-10-14 16:00] VITALS: BP 118/50; PULSE 91; RESP 18; TEMP 99.4; O2SAT 95
[2022-10-14] MEDS: VANCOMYCIN 500 MG in DEXTROSE 5% 100 ML IV SCH (17:37)
[2022-10-14 20:00] VITALS: BP 104/42; PULSE 92; RESP 19; TEMP 101.5; O2SAT 96
[2022-10-14] MEDS: ONDANSETRON 4 MG/2 ML VIAL IVP PRN (20:27)
[2022-10-14] MEDS: ACETAMINOPHEN 325 MG TAB PO PRN (21:20)
[2022-10-14] MEDS: metroNIDAZOLE 500 MG/NS PREMIX 100 ML IV SCH (21:21)
[2022-10-15] VITALS: BP 105/44; PULSE 106; RESP 19; TEMP 98.5; O2SAT 94
[2022-10-15] MEDS ORDERED: VANCOMYCIN 500 MG VIAL PO SCH
[2022-10-15] MEDS: NACL 0.9% 1,000 ML IV SCH ×3 (03:21→20:26)
[2022-10-15] MEDS: VANCOMYCIN 500 MG in DEXTROSE 5% 100 ML IV SCH ×2 (03:22→19:32)
[2022-10-15 04:00] VITALS: BP 105/44; PULSE 106; RESP 19; TEMP 98.5; O2SAT 94
[2022-10-15] MEDS: ONDANSETRON 4 MG/2 ML VIAL IVP PRN ×2 (05:21→22:43)
[2022-10-15] MEDS: metroNIDAZOLE 500 MG/NS PREMIX 100 ML IV SCH ×3 (05:22→20:25)
[2022-10-15] MEDS: VANCOMYCIN HCL 25 MG/ML SOLN PO SCH ×5 (06:00→23:50)
--- NOTE | 2022-10-15 07:31 | NUR ---
GAVE REPORT TO AM NURSE FOR CONTINUITY OF CARE. PATIENT AWAKE NON VERBAL. NO ACUTE DISTRESS. BREATHING NORMAL NON LABORED. PATIENT HAD X2 DIARRHEA. CALL LIGHT WITHIN REACH. SAFETY MEASURES ARE IN PLACE.
[2022-10-15 08:00] VITALS: BP 106/37; PULSE 101; RESP 16; RESP 19; TEMP 96.9; O2SAT 97
[2022-10-15 11:12] LABS: ALBUMIN 2.7 g/dL (3.4-5.0); ANION GAP 16.1 (8-16); CARBON DIOXIDE 18.2 mmol/L (21-32); CREATININE 0.8 mg/dL (0.6-1.3); MAGNESIUM 2.1 mg/dL (1.8-2.4); TOTAL BILIRUBIN 1.5 mg/dL (0.0-1.0)
[2022-10-15 11:16] LABS: POTASSIUM 2.3 mmol/L (3.5-5.1)
[2022-10-15 11:32] LABS: BASOPHILS % (AUTO) 0.7 % (0.0-2.0); EOSINOPHILS % (AUTO) 0.2 % (0.0-4.0); HEMATOCRIT 32.5 % (36-52); HEMOGLOBIN 10.6 g/dL (12.0-18.0); LYMPHOCYTES # (AUTO) 0.4 K/uL (2.0-11.5); LYMPHOCYTES % (AUTO) 7.6 % (20.5-51.1); MEAN CORPUSCULAR HEMOGLOBIN 27 pg (27-31); MEAN CORPUSCULAR HGB CONC 33 g/dL (33-37); MEAN CORPUSCULAR VOLUME 81.7 fL (80-94); MONOCYTES # (AUTO) 0.6 K/uL (0.8-1.0); NEUTROPHILS # (AUTO) 4.7 K/uL (1.8-7.7); NEUTROPHILS % (AUTO) 81.5 % (42.2-75.2); PLATELET COUNT (AUTO) 135 K/uL (140-450); RED BLOOD CELL COUNT(AUTO) 3.97 MIL/uL (4.20-6.10); RED CELL DISTRIBUTION WIDTH 22.3 % (11.6-13.7); WHITE BLOOD COUNT (AUTO) 5.8 K/uL (4.8-10.8)
[2022-10-15] MEDS ORDERED: POTASSIUM CHLORIDE 10 MEQ TABER PO SCH (11:34)
[2022-10-15] MEDS ORDERED: POTASSIUM CHLORIDE 40 MEQ, LIDOCAINE 1% 25 MG in NACL 0.9% 250 ML IV ONE (12:00)
[2022-10-15] MEDS: PANTOPRAZOLE 40 MG INJ VIAL IVP SCH (12:28)
[2022-10-15 16:00] VITALS: BP 103/38; PULSE 98; RESP 16; TEMP 98.7; O2SAT 98
[2022-10-15 20:00] VITALS: BP 110/47; PULSE 101; PULSE 96; RESP 16; TEMP 98.5; O2SAT 97
[2022-10-16 04:00] VITALS: BP 112/45; PULSE 92; RESP 16; TEMP 98.2; O2SAT 97
[2022-10-16] MEDS: VANCOMYCIN 500 MG in DEXTROSE 5% 100 ML IV SCH ×2 (04:11→15:33)
[2022-10-16] MEDS: metroNIDAZOLE 500 MG/NS PREMIX 100 ML IV SCH ×3 (04:14→22:27)
[2022-10-16] MEDS: VANCOMYCIN HCL 25 MG/ML SOLN PO SCH ×3 (05:24→18:08)
--- NOTE | 2022-10-16 06:47 | NUR ---
Received patient from previous shift, is alert and oriented x1, came in with c/o of abdominal pain, diagnosis GI bleed and anemia, patient hemoglobin was at 7.1 and 1 unit was given few days ago. Slept well through the night, patient's mom is at bedsided provided peace and tranquility for patient. Has 1 large greenish liquid bm. Patient is incontinent of bowel and bladder, continues with antibiotic throughout the night. Vital sign is stable.
--- NOTE | 2022-10-16 07:04 | NUR ---
receive the patient from the weight shifter rn in rm 120B aox1 with admitting diagnosis of gastrointestinal bleed , anemia. will continue to monitor
[2022-10-16 08:00] VITALS: BP 177/44; PULSE 107; RESP 21; TEMP 98.9; O2SAT 97
[2022-10-16 08:10] VITALS: PULSE 99; RESP 18; O2SAT 99
[2022-10-16] MEDS: PANTOPRAZOLE 40 MG INJ VIAL IVP SCH (10:38)
[2022-10-16] MEDS: NACL 0.9% 1,000 ML IV SCH (10:48)
[2022-10-16 16:00] VITALS: BP 134/33; PULSE 113; RESP 23; TEMP 101.4; O2SAT 97
--- NOTE | 2022-10-16 16:46 | NUR ---
10/16/22 RD FOLLOW UP COMPLETED. PLEASE REFER TO NUTRITION ASSESSMENT UNDER CARE ACTIVITY FOR ESTIMATED NUTRITIONAL NEEDS. 1. CONTINUE CLEAR LIQUID DIET TOLERATED. WHEN/IF MEDICALLY APPROPRIATE, GRADUALLY ADVANCE TO SOFT DIET TOLERATED. 2.RECOMMEND ENSURE CLEAR BID (PROVIDES 480 KCAL, 16 GRAMS PROTEIN) 3. MONITOR PO INTAKE, GI ISSUES, WEIGHT/BMI, AND NUTRITION RELATED LAB VALUES. 4. RD TO FOLLOW-UP IN 2-3 DAYS PATIENT IS HIGH RISK. ZION MOFFETT RD
[2022-10-16] MEDS: SPIRONOLACTONE 25 MG TAB PO SCH (18:08)
[2022-10-16] MEDS: ACETAMINOPHEN 325 MG TAB PO PRN (18:51)
--- NOTE | 2022-10-16 19:08 | NUR ---
will endorse to shift engineer rn fro continuity of care , acetaminophen , cooling measures was done due to temperature . will continue to monitor
--- NOTE | 2022-10-16 19:14 | NUR ---
send a txt message to MD medications for insomia . will wait for the Md reply
[2022-10-16 20:00] VITALS: BP 128/45; PULSE 101; PULSE 110; RESP 16; RESP 23; TEMP 100.2; O2SAT 97
[2022-10-17] MEDS: VANCOMYCIN HCL 25 MG/ML SOLN PO SCH ×5 (00:31→23:28)
[2022-10-17 04:00] VITALS: BP 127/56; PULSE 100; RESP 20; TEMP 98.6; O2SAT 96
[2022-10-17] MEDS: metroNIDAZOLE 500 MG/NS PREMIX 100 ML IV SCH ×3 (04:44→21:49)
[2022-10-17] MEDS: NACL 0.9% 1,000 ML IV SCH ×2 (06:48→14:39)
[2022-10-17] MEDS: VANCOMYCIN 500 MG in DEXTROSE 5% 100 ML IV SCH ×2 (06:50→16:14)
[2022-10-17 08:00] VITALS: BP 126/54; PULSE 102; RESP 19; TEMP 98.7; O2SAT 96
[2022-10-17 08:12] VITALS: PULSE 100; RESP 18; O2SAT 97
[2022-10-17] MEDS ORDERED: POTASSIUM CHLORIDE 10 MEQ TABER PO SCH (08:54)
--- NOTE | 2022-10-17 09:31 | NUR ---
PT. WITH LOW WILBERT SCALE AT MODERATE TO HIGH RISK, CONTINUE TO FOLLOW PRESSURE INJURY PREVENTION INTERVENTIONS. -POSITIONING: TURN AND REPOSITION PATIENT Q 2H OR SOONER USE PILLOWS TO KEEP BONY PROMINENCES FROM DIRECT CONTACT WITH SURFACES USE REPOSITIONING WEDGES TO PROVIDE 30-DEGREE ANGLE FOR SIDE LYING POSITIONS OFFLOADING OR FOAM DRESSING TO ALL TUBING TO PREVENT MEDICAL DEVICES RELATED PRESSURE INJURY -RE-EVALUATING AND MANAGING INCONTINENCE MONITOR SKIN CONDITION DURING POSITION CHANGE DO NOT MASSAGE REDNESS, BONY PROMINENCES FREQUENT LONG-CARE AND PROVIDE BARRIER CREAMS PRN IF SOILING MOISTURE CONTROL BY OFFER BED ARGUELLES/URINAL /ABSORBENT PAD TO WICK AND HOLD MOISTURE KEEP SKIN DRY AND PROTECT FROM FRICTION -MANAGE FRICTION/SHEAR/MOBILITY KEEP HOB AT THE LOWEST LEVEL OF ELEVATION NO MORE THAN 30 DEGREE UNLESS OTHERWISE CONTRAINDICATED USE LIFT SHEET OR TRANSFER DEVICE TO MOVE PATIENT AND PREVENT LATERAL SHEER. PROTECT HEELS, ELBOWS BONY PROMINENCES WITH SKIN BERRIES OR FOAM DRESSING IF EXPOSED TO FRICTION OFFLOAD BILATERAL HEELS BY PLACING PILLOWS UNDER CALVES AT ALL TIMES, UNLESS OTHERWISE CONTRAINDICATED -PRESSURE REDISTRIBUTION SURFACE THERAPY SUREKHA ISOFLEX MATTRESS -NUTRITION: PLEASE FOLLOW RD RECOMMENDATIONS AND OFFER NUTRITION SUPPLEMENTS IF ORDERED. PLEASE CONTACT WOUND CARE NURSE FOR ANY QUESTION AND CHANGE OF WOUND CONDITION.
[2022-10-17] MEDS: SPIRONOLACTONE 25 MG TAB PO SCH ×2 (10:09→17:00)
[2022-10-17] MEDS: PANTOPRAZOLE 40 MG INJ VIAL IVP SCH (10:10)
[2022-10-17] MEDS: ONDANSETRON 4 MG/2 ML VIAL IVP PRN ×2 (10:13→14:24)
--- NOTE | 2022-10-17 13:56 | NUR ---
DC PLANN[age] YRS OLD MALE PATIENT WAS ADMITTED FROM HOME WITH A DX OF GI BLEED AND ANEMIA. PATIENT HAS A HX OF CEREBRAL PALSY, CARDIOMEGALY, PORTAL HTN ASCITES, ESOPHAGEAL VARICES WITH BANDING , COLITIS AND ANEMIA. CT ABD SHOWED CIRRHOTIC LIVER SEVERE INFLAMMATORY CHANGES THROUGHOUT THE COLON CONSISTENT WITH NONSPECIFIC COLITIS. KUB SHOWED MARKEDLY DISTENDED GAS-FILLED STOMACH WITH DILATED GAS-FILLED OF SMALL BOWEL IN RIGHT ABDOMEN. ADMINISTERED IVF, IV ABX VANCOMYCIN FLAGYL AND ROCEPHIN. TRANSFUSED 1 UNIT OF PRBC H/H POST TRANSFUSION 10.6/32.5 CONSULTED WITH GI. DC PLAN TO GO HOME WHEN STABLE. CM TO FOLLOW Addendum: 10/18/22 at 1406 by Tavia Mace RN DC PLANNING: SEEN BY DR ALBERT RECOMMENDING TO HAVE RADHA TO R/O ENDOCARDITIS AND COLITIS. CONTINUOUS IV ABX VANCOMYCIN ROCEPHIN AND FLAGYL AND VANCO PO. DC PLAN AWAITING FOR THE ECHO RESULT. CM TO FOLLOW Addendum: 10/19/22 at 1401 by Tavia Mace RN DC PLANNING: DR ECHO AGRAWAL LIFE INSURANCE SPECIALIST PERFORMED RADHA. NO EVIDENCE OF ENDOCARDITIS NO EVIDENCE OF ATRIAL SEPTAL DEFECT OR PATENT BURNS OVALE. DC PLAN TO GO HOME. AWAITING FOR ATTENDING. CM TO FOLLOW
[2022-10-17 16:00] VITALS: BP 122/48; PULSE 115; RESP 20; TEMP 98.5; O2SAT 96
--- NOTE | 2022-10-17 19:02 | NUR ---
will endorse to master black belt rn for continuity of care , for cardiac , infectious disease consult . to continue antibiotic therapy f, planning for RADHA evaluation
--- NOTE | 2022-10-17 19:03 | NUR ---
RECEIVED PT FROM MORNING SHIFT NURSE. PT IS AOX1, ON BEDBOUND WITH RELATIVES ON BED SIDE. PT IS ON ROOM AIR AND ON CLEAR LIQUID DIET. PT HAS IV ON RIGHT FOREARM GAUGE 20 RUNNING WITH NS AT 70ML/HR. PT HAS RASH ON PALMS OF THE HANDS AND ON SOLES OF THE FEET. NO S/S OF RESPIRATORY DISTRESS NOTED. ALL SAFETY MEASURES IMPLEMENTED. BED IN LOW POSITION, BED WHEELS ON LOCK AND CALL LIGHT WITHIN REACH.
[2022-10-17 20:00] VITALS: PULSE 112; RESP 18; O2SAT 97
--- NOTE | 2022-10-17 20:33 | NUR ---
NOTIFIED DR. WILLS THAT PT HAS TEMP OF 100.6 AND CANT SWALLOW FOR PRN TYLENOL PO. DR. WILLS ORDER TYLENOL 1G IV EVERY 6 HRS PRN. ORDER WAS MADE.
--- NOTE | 2022-10-17 21:49 | NUR ---
ALL SCHEDULED AND PRESCRIBED MEDICATION WAS GIVEN TO PT PER MD ORDER. ALL SAFETY MEASURES IMPLEMENTED. BED IN LOW POSITION, BED WHEELS ON LOCK AND CALL LIGHT WITHIN REACH.
[2022-10-17] MEDS: ACETAMINOPHEN 100 ML IV PRN (23:21)
--- NOTE | 2022-10-17 23:21 | NUR ---
PRN OFIRMEV WAS GIVEN TO PT DUE TO TEMP OF 100.6 ALL SAFETY MEASURES IMPLEMENTED. BED IN LOW POSITION, BED WHEELS ON LOCK AND CALL LIGHT WITHIN REACH.
--- NOTE | 2022-10-17 23:28 | NUR ---
VANCOMYCIN ORAL WAS NOT GIVEN TO PT DUE TO PT REFUSED AND CANT SWALLOW. ALL SAFETY MEASURES IMPLEMENTED. BED IN LOW POSITION, BED WHEELS ON LOCK AND CALL LIGHT WITHIN REACH.
[2022-10-18] VITALS: BP 135/52; PULSE 112; RESP 18; TEMP 100.6; O2SAT 97
--- NOTE | 2022-10-18 02:00 | NUR ---
PT IS ON SLEEP. CHEST RISE AND FALL SYMMETRICALLY NOTED. RESPIRATION IS EVEN AND UNLABORED. ALL SAFETY MEASURES IMPLEMENTED. BED IN LOW POSITION, BED WHEELS ON LOCK AND CALL LIGHT WITHIN REACH.
[2022-10-18] MEDS: VANCOMYCIN 500 MG in DEXTROSE 5% 100 ML IV SCH (04:39)
[2022-10-18] MEDS: NACL 0.9% 1,000 ML IV SCH ×2 (05:32→21:24)
[2022-10-18] MEDS: metroNIDAZOLE 500 MG/NS PREMIX 100 ML IV SCH ×3 (05:34→22:04)
[2022-10-18] MEDS: VANCOMYCIN HCL 25 MG/ML SOLN PO SCH ×3 (05:35→18:11)
--- NOTE | 2022-10-18 07:29 | NUR ---
PT IS STABLE. ENDORSED PT TO MORNING SHIFT NURSE FOR CONTINUITY OF CARE.
--- NOTE | 2022-10-18 07:30 | NUR ---
RECEIVED BEDSIDE REPORT FROM CLIENT SUPPORT REPRESENTATIVE NURSE FOR CONTINUITY OF CARE. PT IS ASLEEP, NO SIGN OF DISTRESS. CALL LIGHT WITHIN REACH.
[2022-10-18 08:00] VITALS: BP 125/72; PULSE 99; RESP 18; TEMP 98.7; O2SAT 97
[2022-10-18 08:45] LABS: BASOPHILS # (AUTO) 0.1 K/uL (0.00-0.22); BASOPHILS % (AUTO) 1.3 % (0.0-2.0); EOSINOPHILS % (AUTO) 0.5 % (0.0-4.0); HEMATOCRIT 32.1 % (36-52); HEMOGLOBIN 10.4 g/dL (12.0-18.0); LYMPHOCYTES # (AUTO) 0.8 K/uL (2.0-11.5); LYMPHOCYTES % (AUTO) 11.8 % (20.5-51.1); MEAN CORPUSCULAR HEMOGLOBIN 27 pg (27-31); MEAN CORPUSCULAR HGB CONC 32 g/dL (33-37); MEAN CORPUSCULAR VOLUME 83.2 fL (80-94); MONOCYTES # (AUTO) 0.6 K/uL (0.8-1.0); MONOCYTES % (AUTO) 8.6 % (1.7-9.3); NEUTROPHILS # (AUTO) 5.3 K/uL (1.8-7.7); NEUTROPHILS % (AUTO) 77.8 % (42.2-75.2); RED BLOOD CELL COUNT(AUTO) 3.85 MIL/uL (4.20-6.10); RED CELL DISTRIBUTION WIDTH 23.2 % (11.6-13.7); WHITE BLOOD COUNT (AUTO) 6.8 K/uL (4.8-10.8)
[2022-10-18 08:48] LABS: PLATELET COUNT (AUTO) 118 K/uL (140-450)
[2022-10-18 08:53] LABS: ALBUMIN 2.9 g/dL (3.4-5.0); ANION GAP 16.1 (8-16); CARBON DIOXIDE 17.9 mmol/L (21-32); CREATININE 1.5 mg/dL (0.6-1.3); TOTAL BILIRUBIN 1.1 mg/dL (0.0-1.0)
[2022-10-18] MEDS: PANTOPRAZOLE 40 MG INJ VIAL IVP SCH (09:33)
[2022-10-18] MEDS ORDERED: POTASSIUM CHLORIDE 10 MEQ TABER PO PRN ×2 (10:00→10:27)
[2022-10-18] MEDS ORDERED: POTASSIUM CHLORIDE 40 MEQ, LIDOCAINE 1% 25 MG in NACL 0.9% 250 ML IV SCH (10:30)
[2022-10-18] MEDS: SPIRONOLACTONE 25 MG TAB PO SCH ×2 (11:11→18:10)
[2022-10-18] MEDS ORDERED: POTASSIUM CHLORIDE 20% 40 MEQ/15 ML UDC GT PRN (11:45)
--- NOTE | 2022-10-18 12:08 | NUR ---
Television Production Clerk Please refer to the Discharge Planning Assessment.
--- NOTE | 2022-10-18 14:36 | NUR ---
10/18/22 RD FOLLOW UP COMPLETED PLEASE REFER TO NUTRITION ASSESSMENT UNDER CARE ACTIVITY FOR ESTIMATED NUTRITIONAL NEEDS. 1. CONTINUE CLEAR LIQUID DIET TOLERATED AND ONCE MEDICALLY APPROPRIATE ADVANCE TO FULL LIQUID DIET, LACTOSE FREE. 2. CONTINUE ENSURE CLEAR TID IN ORDER TO HELP GET CLOSE TO ESTIMATED NUTRITIONAL NEEDS. THIS WILL PROVIDE 720 CALORIES AND 24 GRAMS OF PROTEIN. 3. RD TO FOLLOW-UP 2-3 DAYS, HIGH RISK JOHANA MESSER RD
[2022-10-18] MEDS: ONDANSETRON 4 MG/2 ML VIAL IVP PRN (15:05)
[2022-10-18 16:00] VITALS: BP 105/49; PULSE 99; RESP 18; TEMP 101.7; O2SAT 99
[2022-10-18] MEDS: ACETAMINOPHEN 325 MG TAB PO PRN (18:30)
--- NOTE | 2022-10-18 18:49 | NUR ---
FOR RADHA tomorrow 10-19-22 at 9AM, to be done by , to go to ICU POST OP,SHARMAINE Javier RN notified, Radiology notified as well ,message received by JUAN F, , will endorse to Night HS as well
[2022-10-18 20:00] VITALS: PULSE 113; RESP 17; TEMP 98.3; O2SAT 98
[2022-10-19] VITALS: BP 113/45; PULSE 113; RESP 17; TEMP 98.3; O2SAT 98
[2022-10-19] MEDS: VANCOMYCIN HCL 25 MG/ML SOLN PO SCH ×5 (00:09→23:59)
--- NOTE | 2022-10-19 02:00 | NUR ---
CLEANED THE PT. CHANGED CHUCKS, LINENS, BLANKET AND GOWN. ALL SAFETY MEASURES IMPLEMENTED. BED IN LOW POSITION, BED WHEELS ON LOCK AND CALL LIGHT WITHIN REACH.
[2022-10-19] MEDS: metroNIDAZOLE 500 MG/NS PREMIX 100 ML IV SCH ×3 (04:26→20:26)
[2022-10-19] MEDS: ACETAMINOPHEN 325 MG TAB PO PRN (05:44)
--- NOTE | 2022-10-19 05:44 | NUR ---
PRN TYLENOL WAS GIVEN TO PT DUE TO HEADACHE WITH PAIN SCALE OF 3/10. ALL SAFETY MEASURES IMPLEMENTED. BED IN LOW POSITION, BED WHEELS ON LOCK AND CALL LIGHT WITHIN REACH.
--- NOTE | 2022-10-19 07:23 | NUR ---
PT IS STABLE. ENDORSED PT TO MORNING SHIFT NURSE FOR CONTINUITY OF CARE.
[2022-10-19] MEDS ORDERED: VANCOMYCIN PER PHARMACY MC PRN (07:55)
[2022-10-19 08:00] VITALS: BP 128/46; PULSE 95; RESP 18; TEMP 98.1; O2SAT 98
--- NOTE | 2022-10-19 09:07 | NUR ---
CARDIO ([id number]) CALL FOR VERIFY THAT PATIENT IS NPO AND CONSENT IS SIGN FOR RADHA [id number]. NURSE SEE CONSENT AND INFORMED FAMILY THAT PATIENT SCHEDULE TO HAVE BEDSIDE RADHA TODAY. WILL CONTINUE TO MONITOR
[2022-10-19 09:26] LABS: ALBUMIN 2.9 g/dL (3.4-5.0); ANION GAP 23.5 (8-16); CARBON DIOXIDE 12.5 mmol/L (21-32); CREATININE 1.5 mg/dL (0.6-1.3); TOTAL BILIRUBIN 0.9 mg/dL (0.0-1.0)
[2022-10-19] MEDS ORDERED: DEXTROSE 5% 1,000 ML IV SCH (09:40)
[2022-10-19] MEDS ORDERED: fentaNYL citrate 0.05 MG/ML VIAL ONE (10:00)
[2022-10-19] MEDS ORDERED: MIDAZOLAM 2 MG/2 ML VIAL ONE (10:00)
[2022-10-19] MEDS ORDERED: KCL 20 MEQ IN 100 mL PREMIX 100 ML IV SCH (10:00)
[2022-10-19] MEDS ORDERED: BENZOCAINE 20% 57 GM CAN MC ONE (10:01)
[2022-10-19 10:10] LABS: BASOPHILS # (AUTO) 0.2 K/uL (0.00-0.22); BASOPHILS % (AUTO) 1.7 % (0.0-2.0); EOSINOPHILS % (AUTO) 0.4 % (0.0-4.0); HEMATOCRIT 31.8 % (36-52); HEMOGLOBIN 10.2 g/dL (12.0-18.0); LYMPHOCYTES # (AUTO) 0.4 K/uL (2.0-11.5); LYMPHOCYTES % (AUTO) 4.9 % (20.5-51.1); MEAN CORPUSCULAR HEMOGLOBIN 27 pg (27-31); MEAN CORPUSCULAR HGB CONC 32 g/dL (33-37); MEAN CORPUSCULAR VOLUME 84.2 fL (80-94); MONOCYTES # (AUTO) 0.5 K/uL (0.8-1.0); MONOCYTES % (AUTO) 5.6 % (1.7-9.3); NEUTROPHILS % (AUTO) 87.4 % (42.2-75.2); PLATELET COUNT (AUTO) 110 K/uL (140-450); RED BLOOD CELL COUNT(AUTO) 3.77 MIL/uL (4.20-6.10); RED CELL DISTRIBUTION WIDTH 24.2 % (11.6-13.7); WHITE BLOOD COUNT (AUTO) 9.2 K/uL (4.8-10.8)
[2022-10-19] MEDS: PANTOPRAZOLE 40 MG INJ VIAL IVP SCH (10:51)
--- NOTE | 2022-10-19 10:53 | NUR ---
RADHA SCHEDULED AT 1000. SUCTION, AMBUBAG, AT BEDSIDE. SATURATION DURING PROCEDURE 98%, HEART RATE STABLE. MINIMAL SECRETIONS. FINISHED APPROXIMATELY 1045. PT CURRENTLY ON 2L NASAL CANNULA SATURATION 99%. CALL LIGHT WITHIN REACH. WILL CONTINUE TO MONITOR PATIENT.
[2022-10-19] MEDS: SPIRONOLACTONE 25 MG TAB PO SCH ×2 (11:04→17:40)
[2022-10-19] MEDS: NACL 0.9% 1,000 ML IV SCH (11:05)
[2022-10-19] MEDS ORDERED: KCL 20 MEQ IN 100 mL PREMIX 200 ML IV SCH (12:00)
[2022-10-19 15:05] LABS: ANION GAP 20.4 (8-16); CARBON DIOXIDE 14.4 mmol/L (21-32); CREATININE 1.5 mg/dL (0.6-1.3)
[2022-10-19 15:16] LABS: POTASSIUM 2.8 mmol/L (3.5-5.1)
[2022-10-19 16:00] VITALS: BP 112/47; PULSE 107; RESP 18; TEMP 99; O2SAT 98
[2022-10-19] MEDS: POTASSIUM CHL 20 MEQ/D5-1/2NS 1,000 ML IV SCH (17:40)
--- NOTE | 2022-10-19 19:30 | NUR ---
RECEIVED PT FROM AM NURSE FOR CONTINUITY OF CARE. PT IS STABLE
[2022-10-19 20:00] VITALS: PULSE 82; RESP 18; TEMP 99.8; O2SAT 100
[2022-10-20] MEDS: POTASSIUM CHL 20 MEQ/D5-1/2NS 1,000 ML IV SCH (02:58)
[2022-10-20 04:00] VITALS: BP 136/56; PULSE 101; RESP 18; TEMP 98.7; O2SAT 99
[2022-10-20] MEDS: metroNIDAZOLE 500 MG/NS PREMIX 100 ML IV SCH ×3 (04:46→22:03)
[2022-10-20] MEDS: VANCOMYCIN HCL 25 MG/ML SOLN PO SCH ×4 (05:43→23:31)
--- NOTE | 2022-10-20 07:25 | NUR ---
RECEIVED REPORT FROM GASKET FORMER NURSE FOR CONTINUITY OF CARE. PT STABLE AT THIS TIME.
[2022-10-20 08:00] VITALS: BP 135/48; PULSE 125; RESP 18; RESP 20; TEMP 98.3; O2SAT 98
[2022-10-20 09:27] LABS: BASOPHILS # (AUTO) 0.1 K/uL (0.00-0.22); BASOPHILS % (AUTO) 0.7 % (0.0-2.0); EOSINOPHILS % (AUTO) 0.1 % (0.0-4.0); HEMATOCRIT 28.3 % (36-52); HEMOGLOBIN 9.1 g/dL (12.0-18.0); LYMPHOCYTES # (AUTO) 1.2 K/uL (2.0-11.5); LYMPHOCYTES % (AUTO) 5.2 % (20.5-51.1); MEAN CORPUSCULAR HEMOGLOBIN 27 pg (27-31); MEAN CORPUSCULAR HGB CONC 32 g/dL (33-37); MONOCYTES # (AUTO) 0.7 K/uL (0.8-1.0); MONOCYTES % (AUTO) 3.2 % (1.7-9.3); NEUTROPHILS # (AUTO) 20.5 K/uL (1.8-7.7); NEUTROPHILS % (AUTO) 90.8 % (42.2-75.2); PLATELET COUNT (AUTO) 99 K/uL (140-450); RED BLOOD CELL COUNT(AUTO) 3.37 MIL/uL (4.20-6.10); RED CELL DISTRIBUTION WIDTH 23.7 % (11.6-13.7); WHITE BLOOD COUNT (AUTO) 22.6 K/uL (4.8-10.8)
[2022-10-20] MEDS: PANTOPRAZOLE 40 MG INJ VIAL IVP SCH (09:49)
[2022-10-20] MEDS: SPIRONOLACTONE 25 MG TAB PO SCH ×2 (09:49→17:31)
[2022-10-20 09:54] LABS: ALBUMIN 2.5 g/dL (3.4-5.0); ANION GAP 17.7 (8-16); CARBON DIOXIDE 12.8 mmol/L (21-32); CREATININE 1.4 mg/dL (0.6-1.3)
[2022-10-20 10:04] LABS: POTASSIUM 2.5 mmol/L (3.5-5.1)
--- NOTE | 2022-10-20 10:10 | NUR ---
PT TOOK SMALL SIP OF APPLE JUICE CONTAINING MEDICATION AND WILL NOT DRINK ANYMORE AT THIS TIME.
[2022-10-20] MEDS ORDERED: KCL 20 MEQ IN 100 mL PREMIX 200 ML IV PRN (10:15)
[2022-10-20] MEDS ORDERED: POTASSIUM CHL 20MEQ/D5-NS 1,000 ML IV SCH (10:55)
[2022-10-20] MEDS ORDERED: POTASSIUM CHLORIDE 40 MEQ, LIDOCAINE 1% 25 MG in NACL 0.9% 250 ML IV ONE (11:30)
[2022-10-20] MEDS ORDERED: POTASSIUM CHLORIDE 20% 40 MEQ/15 ML UDC GT PRN (11:45)
[2022-10-20] MEDS ORDERED: LORazepam 2 MG/ML VIAL IVP PRN (13:10)
--- NOTE | 2022-10-20 14:32 | NUR ---
10/20/22 RD FOLLOW UP COMPLETED PLEASE REFER TO NUTRITION ASSESSMENT UNDER CARE ACTIVITY FOR ESTIMATED NUTRITIONAL NEEDS. 1. CONTINUE CLEAR LIQUID DIET TOLERATED AND ONCE MEDICALLY APPROPRIATE ADVANCE TO FULL LIQUID DIET, LACTOSE FREE. 2. CONTINUE ENSURE CLEAR TID IN ORDER TO HELP GET CLOSE TO ESTIMATED NUTRITIONAL NEEDS. THIS WILL PROVIDE 720 CALORIES AND 24 GRAMS OF PROTEIN. 3. RD RECOMMENDS BANATROL TID TO HELP WITH DIARRHEA, THIS WILL PROVIDE 120 CALORIES AND 0 GRAMS OF PROTEIN. PLEASE DISCONTINUE USE ONCE DIARRHEA HAS STOPPED. 4. RD WILL CONTINUE TO MONITOR WEIGHT, PO INTAKE, GI ISSUES AND NUTRITION RELATED LAB VALUES. 5. RD TO FOLLOW-UP 2-3 DAYS, HIGH RISK JOHANA MESSER RD
[2022-10-20] MEDS: ACETAMINOPHEN 100 ML IV PRN (15:53)
[2022-10-20 16:00] VITALS: BP 120/58; PULSE 85; RESP 18; TEMP 100.5; O2SAT 98
[2022-10-20] MEDS ORDERED: KCL 20 MEQ IN 100 mL PREMIX 200 ML IV SCH ×2 (17:00→21:30)
[2022-10-20 17:05] LABS: MAGNESIUM 1.8 mg/dL (1.8-2.4); PHOSPHORUS 1.6 mg/dL (2.5-4.9)
--- NOTE | 2022-10-20 17:45 | NUR ---
TALKED WITH FAMILY AND THEY DO NOT WANT US TO GIVE HIM THE ATIVAN ANYMORE. THEY STATED THAT IF WE NEED TO GIVE HIM THE ATIVAN TO CALL THE FAMILY FIRST BEFORE ADMINISTERING IT.
--- NOTE | 2022-10-20 19:30 | NUR ---
RECEIVED REPORT FROM DAY SHIFT RN FOR CONTINUITY OF CARE. PT IS CURRENTLY SLEEPING. NOT IN ANY DISTRESS. FAMILY BY BEDSIDE. POC DISCUSSED WITH FAMILY. CALL LIGHT WITHIN REACH. WILL CONTINUE TO MONITOR THE PT.
[2022-10-20] MEDS: SODIUM BICARBONATE 8.4% 50 MEQ in DEXTROSE 5% 1,000 ML IV SCH (19:55)
[2022-10-20 20:00] VITALS: PULSE 171; RESP 24; TEMP 99.5; O2SAT 97
--- NOTE | 2022-10-20 20:16 | NUR ---
ENDORSED TO RAILROAD WHEELS AND AXLES INSPECTOR NURSE FOR CONTINUITY OF CARE. PT STABLE AT THIS TIME.
--- NOTE | 2022-10-20 20:48 | NUR ---
PT HEART RATE IS 171. MESSAGED DR. DODGE. DOCTOR CALLED AND ORDERED NS 500 CC BOLUS AND ADENOSINE 6MG IVP.
[2022-10-20] MEDS ORDERED: ADENOSINE 6 MG/2 ML VIAL IVP SCH (20:55)
[2022-10-20] MEDS ORDERED: NACL 0.9% 500 ML IV SCH (20:55)
--- NOTE | 2022-10-20 21:32 | NUR ---
AT 2131 ADENOSINE WAS PUSHED BY ICU NURSE SENG. PT HEART RATE WENT DOWN TO 100 AND BACK TO 150.
[2022-10-21] VITALS (22 sets, daily range): BP systolic 93–123; BP diastolic 27–74; PULSE 70–148; RESP 20–41; TEMP 96.5–98.9; O2SAT 86–99
--- NOTE | 2022-10-21 00:30 | NUR ---
PT HR HAD GONE DOWN TO 120S FOR A WHILE. THEN THE HR WENT BACK UP TO 160S. CALLED DR. DODGE ABOUT THE SITUATION. PT IS AFEBRILE. ORDER PT TO BE TRANSFER TO ICU AND START ON BENJAMIN DSOUZA.
--- NOTE | 2022-10-21 01:15 | NUR ---
TRANS IN FROM TELEMETRY THIS 27 YEAR OLD MALE PATIENT DUE SVT WITH HR OF >160/MIN. IVF IN PROGRESS D5W 1 LITER+ 50 MEQ KCL AT 100 ML/HR VIA G 22 IV CANNULA ON LEFT FOREARM; PATENT AND INTACT. BREATHING EVEN AND UNLABORED ON ROOM AIR. S02 100%. ABDOMEN IS SOFT BUT SOMEWHAT DISTENDED.
[2022-10-21] MEDS ORDERED: DILTIAZEM 125 MG in DEXTROSE 5% 100 ML IV SCH (01:30)
[2022-10-21] MEDS ORDERED: DILTIAZEM 125 MG/25 ML VIAL IV ONE ×2 (01:31→01:38)
--- NOTE | 2022-10-21 01:45 | NUR ---
STILL IN SVT WITH HR 160-162/MIN, CARDIZEM DRIP STARTED VIA LFA IV CANNULA. CLOSE OBSERVATION DONE.
--- NOTE | 2022-10-21 02:00 | NUR ---
TRIED TO INSERT ANOTHER IV LINE, ATTEMPTED 3X BUT NO AVAIL; PATIENT IS UNCOOPERATIVE AND KEEPS ON MOANING WITH UNINTELLIGIBLE/GARBLED SPEECH.
--- NOTE | 2022-10-21 03:30 | NUR ---
ER NURSE PHILLIP WAS ABLE TO INSERT 2 IV CANNULA ON LEFT ARM; SO ALL ABOVE IVF AND CARDIZEM DRIP RESUMED.
--- NOTE | 2022-10-21 03:45 | NUR ---
HAD BM TO SMALL MODERATE AMOUNT OF BLOODY MUCOID STOOL MIXED WITH URINE; KEPT CLEAN DRY AND COMFORTABLE.
--- NOTE | 2022-10-21 05:00 | NUR ---
FELT NAUSEATED; ZOFRAN 4 MG GIVEN IV; FELT BETTER THEREAFTER.
[2022-10-21] MEDS: ONDANSETRON 4 MG/2 ML VIAL IVP PRN ×2 (05:04→14:25)
[2022-10-21] MEDS: metroNIDAZOLE 500 MG/NS PREMIX 100 ML IV SCH ×3 (05:04→20:47)
[2022-10-21] MEDS: VANCOMYCIN HCL 25 MG/ML SOLN PO SCH ×3 (06:23→16:53)
--- NOTE | 2022-10-21 07:20 | NUR ---
RECEIVED REPORT FROM SENG JOYCE PT. RESTING IN BED, SKIN DRY AND WARM TO TOUCH, IV FLUID ON LT WRIST INFUSING CARDIZEM AT 10 MG/HR ANDD5 W WITH 50%MEQ [id number] 100ML/H, INCONTINENT OF URINE. HE IS SLEEPING AT THE TIME.
[2022-10-21] MEDS: PANTOPRAZOLE 40 MG INJ VIAL IVP SCH (08:29)
[2022-10-21] MEDS: SPIRONOLACTONE 25 MG TAB PO SCH ×2 (08:30→16:52)
[2022-10-21 08:55] LABS: BASOPHILS # (AUTO) 0.1 K/uL (0.00-0.22); BASOPHILS % (AUTO) 0.5 % (0.0-2.0); HEMATOCRIT 24.3 % (36-52); HEMOGLOBIN 7.7 g/dL (12.0-18.0); LYMPHOCYTES # (AUTO) 0.9 K/uL (2.0-11.5); MEAN CORPUSCULAR HEMOGLOBIN 27 pg (27-31); MEAN CORPUSCULAR HGB CONC 32 g/dL (33-37); MEAN CORPUSCULAR VOLUME 86.2 fL (80-94); MONOCYTES # (AUTO) 0.5 K/uL (0.8-1.0); MONOCYTES % (AUTO) 3.6 % (1.7-9.3); NEUTROPHILS # (AUTO) 13.5 K/uL (1.8-7.7); NEUTROPHILS % (AUTO) 89.9 % (42.2-75.2); PLATELET COUNT (AUTO) 69 K/uL (140-450); RED BLOOD CELL COUNT(AUTO) 2.82 MIL/uL (4.20-6.10); RED CELL DISTRIBUTION WIDTH 24.5 % (11.6-13.7)
[2022-10-21 09:03] LABS: ANION GAP 16.2 (8-16); CARBON DIOXIDE 16.6 mmol/L (21-32); CREATININE 1.3 mg/dL (0.6-1.3); POTASSIUM 3.8 mmol/L (3.5-5.1)
--- NOTE | 2022-10-21 09:43 | NUR ---
ORAL CARE REPOSITION , ORAL CARE AND BACK TO SLEEP.
[2022-10-21] MEDS: SODIUM BICARBONATE 8.4% 50 MEQ in DEXTROSE 5% 1,000 ML IV SCH ×4 (11:00→23:03)
[2022-10-21] MEDS: POTASSIUM PHOSPHATE IV SCH ×2 (11:30→23:39)
[2022-10-21] MEDS: DEXTROSE IV SCH ×2 (11:30→23:39)
--- NOTE | 2022-10-21 17:35 | NUR ---
SEEN BY DUC SEGURA AT BED SIDE NO ORDER RECEIVED.
--- NOTE | 2022-10-21 17:49 | NUR ---
SEEN BY DR RING AT BED SIDE, ORDER RECEIVED.
[2022-10-21] MEDS ORDERED: DILTIAZEM 30 MG TAB PO SCH (18:00)
--- NOTE | 2022-10-21 18:00 | NUR ---
CARDIZEM PO STARTED ORDERED.
--- NOTE | 2022-10-21 18:15 | NUR ---
SEEN BY DR. ALBERT AT BEDSIDE, ORDER RECEIVED,
--- NOTE | 2022-10-21 18:29 | NUR ---
PT AWAKE AND ALERT ABLE TO COMMUNICATED , TAKE MEDICATION AND DRINK LIQUID.
[2022-10-21] MEDS: ACETAMINOPHEN 325 MG TAB PO PRN (19:05)
--- NOTE | 2022-10-21 19:20 | NUR ---
RECEIVED REPORT [facility] FOR CONTINUITY OF CARE. ALL CARES ASSUMED. RECEIVED PT ON BED ON SEMI-HANSEN'S POSITION WITH SIDE RAILS RAISED UP. PT IS AWAKE, RESPONSIVE BY MUMBLING. ON ROOM AIR AT 99% O2SAT, NOT IN DISTRESS. WITH PERIPHERAL IV LINE OVER LEFT ARM - PATENT AND INTACT- INFUSING WITH NA HCO3 AT 100 ML/HR AND NS AT TKO. WITH ANOTHER IV ACCESS OVER LEFT WRIST - DRY AND INTACT- INFUSING WITH CARDIZEM AT 5 ML/HR. WITH ENLARGED ABDOMEN NOTED. ASSESSED GENERAL HEALTH STATUS- PETECHIAL RASHES NOTED ON BOTH BUTTOCKS. PHOTOS TAKEN FOR DOCUMENTATION. POSITIONED WELL IN BED. SAFETY PRECAUTIONS IN PLACE. BED MAINTAINED IN LOW AND LOCKED POSITION. CALL LIGHT PLACED WITHIN REACHED. WILL MONITOR CLOSELY. Addendum: 10/21/22 at 2217 by TOMASZ JIN RN ADDENDUM: SPEECH IS GARBLED
--- NOTE | 2022-10-21 19:20 | NUR ---
PT. AWAKE AND ALERT ,DRINKING FLUID WELL REPORT GIVE TO JOSEPH JOYCE.
--- NOTE | 2022-10-21 20:00 | NUR ---
RECTAL BLEEDING NOTED- MODERATE AMOUNT. CLEANED PT AND TURNED TO SIDES. KEPT COMFORTABLE IN BED.
--- NOTE | 2022-10-21 20:05 | NUR ---
PAIN REASSESSMENT DONE - FLACC 1 1 HR POST TYLENOL. COMFORT MEASURES PROVIDED. TURNED TO RIGHT SIDE.
[2022-10-21] MEDS: DILTIAZEM 30 MG TAB PO SCH (20:46)
--- NOTE | 2022-10-21 21:30 | NUR ---
CALLED FAMILY BECAUSE PT KEEPS LOOKING FOR HIS MOM FOR COMFORT.
--- NOTE | 2022-10-21 22:00 | NUR ---
TURNED TO LEFT SIDE. SUPPORT PILLOWS PROVIDED.
--- NOTE | 2022-10-21 22:05 | NUR ---
CARDIZEM DRIP TURNED OFF AFTER PO DOSE OF CARDIZEM. BP CONTINUOUSLY MONITORED.
--- NOTE | 2022-10-21 22:46 | NUR ---
PAGED DR. ACEVEDO TO CLARIFY ORDER FOR NA HCO3 IN D5% 1000 ML RUNNING IN 100 ML/HR. DR. ACEVEDO CALLED BACK AND CONFIRMED THE ORDER THAT NA HCO3 IN D5% 1000 ML AT 100 ML/HR WILL BE CONTINUED UNTIL HE CHANGE THE ORDER. ALSO, WE ASKED DR. ACEVEDO IF THE POTASSIUM PHOSPHATE IN D5% 500 ML AT 42.5 ML/HR WILL BE A ONE TIME DOSE OR CONTINUOUS. DR. ACEVEDO MADE IT CLEAR THE ORDER THAT POTASSIUM PHOSPHATE IN D5% 500 ML AT 42.3 ML/HR WILL BE A ONE TIME DOSE. REPORTED TO DR. ACEVEDO THAT THE POTASSIUM PHOSPHATE NOT YET GIVEN AND HE ORDERED TO GIVE IT NOW. WILL ACKNOWLEDGE AND CARRY OUT THE ORDER.
--- NOTE | 2022-10-21 22:57 | NUR ---
FAMILY MEMBERS ARRIVED. MOTHER IS IRANIAN SPEAKING THAT'S WHY SHE WAS ACCOMPANIED BY PT'S SISTER FOR TRANSLATION. UPDATED FAMILY ABOUT PT'S CURRENT CONDITION.
[2022-10-21] MEDS ORDERED: POTASSIUM PHOSPHATE IV ONE (23:25)
[2022-10-21] MEDS ORDERED: DEXTROSE IV ONE (23:25)
--- NOTE | 2022-10-21 23:51 | NUR ---
HGB OF 7.[address] XAVIER AND HE STATED THAT " IT'S OKAY, WILL JUST WAIT FOR THE MORNING LAB RESULT AND I WILL DO ROUNDS IN AM". WILL ORDER CBC AND CMP IN AM PER DR. XAVIER.
--- NOTE | 2022-10-21 23:51 | NUR ---
CALLED [facility] NUMBER TO PAGE MANAGER OF CORPORATE [employer]ASK MAKER TO REPORT LAB RESULTS. TALKED TO DR. XAVIER AND REPORTED HGB LEVEL OF 7.7 AND TRENDING DOWN PLATELET LEVEL OF 69 AND PRESENCE OF RECTAL BLEED. NO FURTHER ORDERS MADE AND SAID HE WILL DO ROUNDS IN THE MORNING AND WAIT FOR MORNING LAB RESULTS.
[2022-10-22] VITALS (16 sets, daily range): BP systolic 60–117; BP diastolic 23–57; PULSE 39–82; RESP 16–41; TEMP 95.6–96.6; O2SAT 92–100
--- NOTE | 2022-10-22 | NUR ---
PLACED IN SUPINE POSITION, HEAD OF BED ELEVATED AND BED KEPT LOW AND LOCKED.
[2022-10-22] MEDS: VANCOMYCIN HCL 25 MG/ML SOLN PO SCH ×2 (00:11→06:00)
[2022-10-22] MEDS: ONDANSETRON 4 MG/2 ML VIAL IVP PRN (00:30)
--- NOTE | 2022-10-22 00:30 | NUR ---
PT IS NAUSEOUS POST VANCOMYCIN PO DOSE. ZOFRAN IV GIVEN PRN DOSE. HEAD ELEVATED AND ASPIRATION PRECAUTION INITIATED. EMESIS BIN PROVIDED BUT PT REFUSED.
[2022-10-22] MEDS: metroNIDAZOLE 500 MG/NS PREMIX 100 ML IV SCH (04:52)
[2022-10-22] MEDS: DILTIAZEM 30 MG TAB PO SCH ×2 (04:53→05:00)
--- NOTE | 2022-10-22 05:00 | NUR ---
CARDIZEM PO TAB NOT ADMINISTERED DUE TO LOW BP AND AGITATION.
--- NOTE | 2022-10-22 06:00 | NUR ---
VANCOMYCIN PO DOSE NOT GIVEN DUE TO REFUSAL AND AGITATION. ONLY COOPERATES WITH MOTHER.
--- NOTE | 2022-10-22 06:00 | NUR ---
LAB CAME TO DRAW BLOOD FOR CBC AND CMP. HOWEVER NOT DRAWN DUE TO PT. UNCOOPERATIVE BEHAVIOR. WILL ENDORSE TO NEXT SHIFT.
--- NOTE | 2022-10-22 06:30 | NUR ---
SLIMY RECTAL OUTPUT OBSERVED SCANT AMOUNT.
--- NOTE | 2022-10-22 07:07 | NUR ---
LAB IS HERE TO DRAW BLOOD FOR CBC AND CMP. WILL ENDORSE TO THE NEXT SHIFT.
--- NOTE | 2022-10-22 07:15 | NUR ---
RECEIVED BEDSIDE REPORT FROM DE ICER KIT ASSEMBLER JOSEPH RN. PT IS AWAKE, NON VERBAL, NOT FOLLOW COMMAND. RA, NO ACUTE S/S OF RESP. DISTRESS. SINUS BRADYCARDIA ON MONITOR. CLEAR LIQUID DIET. PERIPHERAL IV TO LT HAND 22G, INFUSING BICARBONATE @100MLS/HR. INCONTINENT. RASH ON BOTH SIDE OF BUTTOCKS. ALL SAFETY PRECAUTION IN PLACE, WILL CONTINUE TO MONITOR.
--- NOTE | 2022-10-22 07:20 | NUR ---
REPORT GIVEN TO AM SHIFT, KP,RN FOR CONTINUITY OF CARE. ALL QUESTIONS ANSWERED. ENDORSED THAT I WAS NOT ABLE TO GIVE PO MEDICATIONS DUE TO REFUSAL AND AGITATION. PT IS REQUESTING FOR HIS MOTHER. STILL ON NAHCO3 DRIP AT 100 ML/HR. RECTAL BLEED NOTED ONCE INITIALLY UPON START OF SHIFT, NO FURTHER RECTAL BLEED NOTED. SLIMY OUTPUT NOTED- SCANT AMOUNT.
[2022-10-22 08:18] LABS: ANION GAP 28.7 (8-16); CREATININE 1.5 mg/dL (0.6-1.3); POTASSIUM 5.2 mmol/L (3.5-5.1); TOTAL BILIRUBIN 1.1 mg/dL (0.0-1.0)
[2022-10-22] MEDS: PANTOPRAZOLE 40 MG INJ VIAL IVP SCH (08:41)
[2022-10-22] MEDS: SPIRONOLACTONE 25 MG TAB PO SCH (08:41)
[2022-10-22 08:44] LABS: CARBON DIOXIDE 8.5 mmol/L (21-32)
--- NOTE | 2022-10-22 08:50 | NUR ---
Lab called and reported critical value of Chloride at 5.2. Lab called for low H/H 4.12/18. Pt. with no signs of bleeding, no rectal bleeding, not vomiting blood. Pt.'s RN at pt.'s bedside. Pt. with stable BP and vitals signs. Pt.'s H/H had been a lot higher from AM labs earlier in the day. Lab was instructed to immediately re-draw pt.'s labs to confirm low H/H and rule possibility of error. Lab caller agreed and will sent lab rollway worker to re-draw pt.'s H/H. Dr. Lucia called and notified of the above incidents, NO new orders received and instructed for pt. to be closely monitored. Addendum: 10/22/22 at 1736 by ALESSANDOR SEVERINO RN early AM labs reported hemoglogin 7.7
[2022-10-22 08:58] LABS: EOSINOPHILS % (AUTO) 0.1 % (0.0-4.0)
--- NOTE | 2022-10-22 09:33 | NUR ---
PT SUDDENLY UNRESPONSIVE. ASYSTOLE. PULSELESS WITH DOPPLER. STARTED CPR AND CALLED CODE BLUE. ER DR ELY ARRIVED. EPINEPHRINE GIVEN 3 TIMES, SODIUM BICARB GIVEN [address] ELY SUCCESSFULLY INTUBATED PT, 20MG ETOMIDATE and 80 mg SUCCINYLCHOLINE USED. INSERTED CENTRAL LINE AT LT FEMORAL SITE. CODE ENDED AT 0950. NEW ORDER RECEIVED, 2 UNIT PRBC TRANSFUSION, LEVOPHED, VERSED.
--- NOTE | 2022-10-22 09:48 | NUR ---
CALLED TO PT BED FOR CODE BLUE. INTUBATED PT AT THIS TIME 7.0 AT 22CM AT THE TEETH. PLACED ON VENT SETTINGS A/C 250, RR 16, PEEP 5, FIO2 100%. ABG TO FOLLOW
[2022-10-22] MEDS ORDERED: NOREPINEPHRINE 4 MG/4 ML VIAL IV ONE (09:52)
--- NOTE | 2022-10-22 10:00 | NUR ---
See CODE BLUE sheet for specific details, medications given, times.
[2022-10-22] MEDS ORDERED: NOREPINEPHRINE 8 MG in DEXTROSE 5% 250 ML IV PRN (10:10)
[2022-10-22 10:15] LABS: BASOPHILS % (AUTO) 0.2 % (0.0-2.0); LYMPHOCYTES # (AUTO) 0.6 K/uL (2.0-11.5); LYMPHOCYTES % (AUTO) 7.8 % (20.5-51.1); MEAN CORPUSCULAR HEMOGLOBIN 28 pg (27-31); MEAN CORPUSCULAR HGB CONC 29 g/dL (33-37); MEAN CORPUSCULAR VOLUME 98.3 fL (80-94); MONOCYTES # (AUTO) 0.4 K/uL (0.8-1.0); MONOCYTES % (AUTO) 4.3 % (1.7-9.3); NEUTROPHILS # (AUTO) 7.3 K/uL (1.8-7.7); NEUTROPHILS % (AUTO) 87.6 % (42.2-75.2); PLATELET COUNT (AUTO) 25 K/uL (140-450); RED BLOOD CELL COUNT(AUTO) 1.39 MIL/uL (4.20-6.10); RED CELL DISTRIBUTION WIDTH 25.1 % (11.6-13.7); WHITE BLOOD COUNT (AUTO) 8.3 K/uL (4.8-10.8)
[2022-10-22 10:20] LABS: HEMOGLOBIN 3.9 g/dL (12.0-18.0)
[2022-10-22 10:21] LABS: HEMATOCRIT 13.7 % (36-52)
[2022-10-22] MEDS: SODIUM BICARBONATE 8.4% 50 MEQ in DEXTROSE 5% 1,000 ML IV SCH (11:50)
[2022-10-22] MEDS ORDERED: DOPamine 400 MG/D5W PREMIX 250 ML IV PRN (11:55)
[2022-10-22] MEDS ORDERED: DOPamine 400 MG/D5W PREMIX 250 ML IV ONE (11:58)
[2022-10-22 12:50] LABS: APPEARANCE,URINE CLEAR (CLEAR); BILIRUBIN,URINE 1+ (NEGATIVE); BLOOD, URINE TRACE-I (NEGATIVE); COLOR,URINE YELLOW (YELLOW); LEUKOCYTE ESTERASE ,URINE NEGATIVE (NEGATIVE); NITRITE, URINE POSITIVE (NEGATIVE); PH,URINE 5.5 (5.0-9.0); UGLUCOSE NEGATIVE (NEGATIVE)
--- NOTE | 2022-10-22 12:55 | NUR ---
TEAM AT BEDSIDE - NO PULSES NOTED - EXTREMITIES COLD - COLD BLUE CALLED - CHEST COMPRESSIONS STARTED - BAGGING PATIENT WITH BVM DEVICE - FAMILY ENTERED DURING CODE - BRIGHT RED BLOOD COMING UP ETT AND ORALLY - FAMILY MEMBER ASKED TEAM TO STOP CODE - ICU CHARGE SPOKE TO FAMILY REGARDING STOPPING CPR AND CODE. CPR STOPPED PER MD AT BEDSIDE.
--- NOTE | 2022-10-22 12:59 | NUR ---
PT NO PULSE, STARTED SECOND CODE, DAD AT BEDSIDE, VERBALIZED, "STOP, STOP EVERYTHING" CODE STATUS CHANGED. ER DR. ELY AT BESIDE WITNESSED AND SIGNED POLST AND PRONOUNCED .
--- NOTE | 2022-10-22 12:59 | NUR ---
Pt.'s father came to ICU bed 2 during CODE BLUE and loudly and clearly stated "stop all, no more CPR." Dr. Turner at bedside too and MD ordered all CODE BLUE actions stopped. Pt. pronounced 13:00. 13:27 Called [facility] Coroner and left a message for a return call to ICU. 13:30 Called [facility] [phone] and presented the case to Veronique. Pt.'s case was declined and was given reference No. [id number]. 14:45 Received call from [facility] Coroner and spoke with Ge Morales. Case was declined for Fleet Dispatch Manager review, no case number given. Pt.'s family notified and they are aware that arrangements are needed as soon as possible.
[2022-10-22 13:07] LABS: RBC,URINE 0-5 /HPF (0-5); TRICHOMONAS,URINE None Seen /HPF (None Seen); YEAST,URINE None Seen /HPF (None Seen)
--- NOTE | 2022-10-22 16:35 | NUR ---
Post-mortem care provided. Pt.'s family is aware that this hospital does not have a morgue and it was impressed on them over and over that pt.'s body needs to be removed from the hospital as soon as possible. After pt.'s , a copy of the Mortuary List for them to make the necessary arrangements. Pt.'s father acknowledge information sited above. Pt.'s body was taken to room 130 in this hospital to await brain picker by home. House Super visor given copy of the pt.'s record of and pt.'s chart. Pt.'s body was clearly tagged, body toe-tag, and tag to outside of body bag. Copy of face sheet and copy of hospitals Record of left with pt.'s body.
== END 2022-10-22 13:00 | DRG 720 ==
LOC: MED 19:28 → MMU 10-14 01:34 → MTU 10-14 01:36 → MIC 10-21 01:21
PROVIDERS: ADMIT Student in an Organized Health Care Education/Training Program; ATTEND Student in an Organized Health Care Education/Training Program
PROC: 30233N1 Transfusion of Nonautologous Red Blood Cells into Peripheral Vein, Percutaneous Approach (ICD-10-PCS; 2022-10-14)
PROC: B246ZZ4 Ultrasonography of Right and Left Heart, Transesophageal (ICD-10-PCS; 2022-10-21)
PROC: 02HV33Z Insertion of Infusion Device into Superior Vena Cava, Percutaneous Approach (ICD-10-PCS; principal; 2022-10-22)
PROC: 5A1935Z Respiratory Ventilation, Less than 24 Consecutive Hours (ICD-10-PCS; 2022-10-22)
PROC: B548ZZA Ultrasonography of Superior Vena Cava, Guidance (ICD-10-PCS; 2022-10-22)
PROC: 0BH17EZ Insertion of Endotracheal Airway into Trachea, Via Natural or Artificial Opening (ICD-10-PCS; 2022-10-22)
PROC: 5A12012 Performance of Cardiac Output, Single, Manual (ICD-10-PCS; 2022-10-22)
DX: A41.9 Sepsis, unspecified organism (principal); R57.8 Other shock; I85.11 Secondary esophageal varices with bleeding; E43 Unspecified severe protein-calorie malnutrition; E87.20 Acidosis, unspecified; E87.0 Hyperosmolality and hypernatremia; N17.9 Acute kidney failure, unspecified; K76.6 Portal hypertension; D62 Acute posthemorrhagic anemia; I47.1 Supraventricular tachycardia; K74.60 Unspecified cirrhosis of liver; G80.9 Cerebral palsy, unspecified; Z66 Do not resuscitate; K56.7 Ileus, unspecified; I46.8 Cardiac arrest due to other underlying condition; Q23.1 Congenital insufficiency of aortic valve; E86.1 Hypovolemia; E87.6 Hypokalemia; R16.1 Splenomegaly, not elsewhere classified; F79 Unspecified intellectual disabilities; K52.9 Noninfective gastroenteritis and colitis, unspecified; Z90.49 Acquired absence of other specified parts of digestive tract; Z79.899 Other long term (current) drug therapy; Z83.3 Family history of diabetes mellitus; Z82.3 Family history of stroke; Z82.49 Family history of ischemic heart disease and other diseases of the circulatory system
CPT/HCPCS: 31500; 36415; 36430; 71045; 74018; 76770; 80048; 80053; 80202; 81001; 83735; 84100; 85018; 85025; 85610; 85730; 86886; 86900; 86901; 86920; 87040; 87081; 92950; 93313; 94002; 99291; 99292; C9113; J0153; J0696; J1265; J2001; J2060; J2250; J2270; J2405; J2543; J3010; J3370; J3480; J3490; J7030; J7060; P9016; Q0092; Q9967